=== PATIENT | male | born 1965 | race Caucasian/White ===

== ENCOUNTER 2016-11-25 09:54 | Observation (INO) ==
[2016-11-25] MEDS: *HR* Metoprolol 5 MG/5 ML VIAL IVP SCH ×2 (10:24→10:30)
--- NOTE | 2016-11-25 10:51 | Emergency Department Note ---
Disposition Clinical Impression: Chest pain Qualifiers: Chest pain type: unspecified Qualified Code(s): R07.9 - Chest pain, unspecified Disposition: Admitted As Inpatient Condition: Fair Time of Disposition: 13:14 Chest Pain HPI - General Chief Complaint: ED Chest Pain Stated Complaint: CP, hypertension Time Seen by Provider: 11/25/16 10:04 Source: patient Mode of arrival: ambulatory Limitations: no limitations Vital Signs Reviewed: Yes Nursing Notes Reviewed: Yes - History of Present Illness HPI Narrative: Patient is a 51-year-old male with past medical history of hypertension and hepatitis who presents to [facility] ED with a chief complaint of intermittent chest pains over the last few days. States the first episode was a pressure-like feeling that lasted for a few minutes and went away on its own. Second episode was more sharp stabbing pains. Patient has had a prior catheterization of the heart which was clean at that time in the . No history of myocardial infarction. Patient's blood pressures have also been higher than they normally are during these episodes. Denies any difficulty breathing. Patient is asymptomatic at this time. He is also complaining of weight gain over the last few weeks and states his belly is tender. Pt complaint: chest pain Onset (ago): day(s) Duration: intermittent Pain Location: substernal Severity: moderate Quality: heaviness, sharp Pain Radiation: none Improves with: nothing Worsens with: nothing Context: recent illness Associated symptoms: Reports: cough. Denies: nausea, vomiting, dyspnea, fever Treatments prior to arrival chest pain: none - Related Data Home Medications Medication Instructions Recorded Confirmed Diazepam [Valium] 5 mg PO BID 11/25/15 08/23/16 Lisinopril [Zestril] 10 mg PO DAILY 11/25/15 08/23/16 Previous Rx's Medication Instructions Recorded Hyoscyamine SL [Levsin SL] 0.125 mg SL TID #10 tab.subl 01/24/16 Dicyclomine [Bentyl] 20 mg PO BID PRN #20 capsule 08/23/16 Promethazine [Phenergan] 25 mg PO Q8HR PRN #15 tablet 08/23/16 Allergies Allergy/AdvReac Type Severity Reaction Status Date / Time acetaminophen [From Tylenol] AdvReac See Verified 08/23/16 10:44 Comments All systems ED: reviewed and negative except as stated. Chest Pain PMH - Past Medical History Medical history: Reports: hepatitis, hypertension, liver disease Psychiatric history: Reports: anxiety, depression - Social History Smoking Status: Never smoker Alcohol use: Reports: none Drug use: Reports: none Physical Exam - General Limitations: no limitations General appearance: alert, in no apparent distress - Head Head exam: atraumatic, normocephalic, normal inspection - Eye Eye exam: Present: normal appearance, PERRL, EOMI - ENT ENT exam: normal exam, normal oropharynx, mucous membranes moist - Neck Neck exam: Present: normal inspection, full ROM, trachea midline - Chest Chest inspection: Present: normal inspection, symmetric chest wall rise - Respiratory Respiratory exam: Present: normal lung sounds bilaterally - Cardiovascular Cardiovascular exam: Present: regular rate, normal rhythm, normal heart sounds - Abdominal Exam Abdominal exam: Present: soft, tenderness, distention, normal bowel sounds Abdominal tenderness: Present: diffuse, moderate - Extremities Exam Extremities exam: Present: normal inspection, full ROM. Absent: tenderness, pedal edema - Back Exam Back exam: Present: normal inspection, full ROM. Absent: tenderness - Neurological Exam Neurological exam: Present: alert, oriented X3 - Psychiatric Psychiatric exam: Present: normal affect, normal mood - Skin Skin exam: Present: warm, dry, intact, normal color Course Course Narrative: Patient seen and examined. A few episodes of chest pain. Concern for possible stable angina. No recent cardiac workup. Cardiopulmonary workup initiated. He is also very tender in his abdomen. He is distended and has a history of hepatitis C for which he does not undergo any treatments. We will CT abdomen and pelvis with IV contrast. - Reevaluation(s) Reevaluation #1: Abdominal CT unremarkable. We will admit for chest pain rule out ACS. I spoke with hospitalist Dr. Loya who has accepted patient for admission. Time: 13:14 Vital Signs Temperature 98.2 F 11/25/16 10:00 Pulse Rate 99 11/25/16 10:00 Respiratory Rate 18 11/25/16 10:00 Blood Pressure 180/116 11/25/16 10:00 O2 Sat by Pulse Oximetry 100 11/25/16 10:00 Temperature 98.2 F 11/25/16 10:00 Pulse Rate 78 11/25/16 12:23 Respiratory Rate 18 11/25/16 13:23 Blood Pressure 121/86 11/25/16 13:23 O2 Sat by Pulse Oximetry 98 11/25/16 12:23 Oxygen Delivery Oxygen Delivery Room Air Chest Pain - Medical Records Medical records reviewed: Yes I reviewed the patient's medical records. - Lab Data Lab results reviewed: Yes I reviewed the patient's lab results. Result diagrams: 11/25/16 10:21 11/25/16 10:21 Lab Results 11/25/16 11/25/16 11/25/16 Range/Units 10:21 10:21 10:21 WBC 4.8 (4.3-11.1) K/mcL RBC 4.46 (4.19-5.50) M/mcL Hgb 13.9 (12.9-16.9) g/dL Hct 41.1 (37.5-50.1) % MCV 92.2 (83.0-100.0) fL MCH 31.2 (28.0-33.3) pg MCHC 33.8 (31.6-35.5) g/dL RDW 13.3 (11.5-14.5) % Plt Count 229 (140-400) K/mcL MPV 10.1 (9.4-12.4) fL Immature Gran % 0.4 (0-4) % Seg Neutrophils % 46.3 % Lymphocytes % 41.3 % Monocytes % 8.2 % Eosinophils % 3.6 % Basophils % 0.2 % Neutrophils # 2.2 (1.6-8.9) K/mcL Lymphocytes # 2.0 (0.6-4.6) K/mcL Monocytes # 0.4 (0.0-1.3) K/mcL Eosinophils # 0.2 (0.0-0.6) K/mcL Basophils # 0.0 (0.0-0.2) K/mcL Immature Plt Fraction 3.6 (1.1-6.1) % Sodium 142 (136-145) mEq/L Potassium 3.5 (3.5-4.5) mEq/L Chloride 110 H (98-109) mEq/L Carbon Dioxide 24 (19-29) mEq/L BUN 3 L (8-26) mg/dL Creatinine 0.83 (0.72-1.25) mg/dL Est GFR ( Amer) > 60 (> 60) Est GFR (Non-Af Amer) > 60 (> 60) BUN/Creatinine Ratio 4 L (6-26) Glucose 154 H (70-99) mg/dL Calculated Osmolality 294 (280-300) Calcium 9.3 (8.6-10.8) mg/dL Total Bilirubin (0.2-1.2) mg/dL Direct Bilirubin (0.0-0.5) mg/dL Indirect Bilirubin (0.0-1.2) mg/dL AST (5-34) Units/L ALT (0-55) Units/L Alkaline Phosphatase (38-126) Units/L Troponin I 0.00 (0-0.03) ng/mL B-Natriuretic Peptide (0-100) pg/mL Serum Total Protein (6.0-8.3) g/dL Albumin (3.5-5.0) g/dL Globulin (2.4-3.5) g/dL Albumin/Globulin Ratio (1.1-2.2) 11/25/16 11/25/16 Range/Units 10:21 10:21 WBC (4.3-11.1) K/mcL RBC (4.19-5.50) M/mcL Hgb (12.9-16.9) g/dL Hct (37.5-50.1) % MCV (83.0-100.0) fL MCH (28.0-33.3) pg MCHC (31.6-35.5) g/dL RDW (11.5-14.5) % Plt Count (140-400) K/mcL MPV (9.4-12.4) fL Immature Gran % (0-4) % Seg Neutrophils % % Lymphocytes % % Monocytes % % Eosinophils % % Basophils % % Neutrophils # (1.6-8.9) K/mcL Lymphocytes # (0.6-4.6) K/mcL Monocytes # (0.0-1.3) K/mcL Eosinophils # (0.0-0.6) K/mcL Basophils # (0.0-0.2) K/mcL Immature Plt Fraction (1.1-6.1) % Sodium (136-145) mEq/L Potassium (3.5-4.5) mEq/L Chloride (98-109) mEq/L Carbon Dioxide (19-29) mEq/L BUN (8-26) mg/dL Creatinine (0.72-1.25) mg/dL Est GFR ( Amer) (> 60) Est GFR (Non-Af Amer) (> 60) BUN/Creatinine Ratio (6-26) Glucose (70-99) mg/dL Calculated Osmolality (280-300) Calcium (8.6-10.8) mg/dL Total Bilirubin 0.4 (0.2-1.2) mg/dL Direct Bilirubin 0.2 (0.0-0.5) mg/dL Indirect Bilirubin 0.2 (0.0-1.2) mg/dL AST 28 (5-34) Units/L ALT 29 (0-55) Units/L Alkaline Phosphatase 88 (38-126) Units/L Troponin I (0-0.03) ng/mL B-Natriuretic Peptide 17 (0-100) pg/mL Serum Total Protein 7.8 (6.0-8.3) g/dL Albumin 3.7 (3.5-5.0) g/dL Globulin 4.1 H (2.4-3.5) g/dL Albumin/Globulin Ratio 0.9 L (1.1-2.2) - Radiology Data Radiology results reviewed: Yes I reviewed the patient's radiology results. - EKG Data EKG attestation: Yes I reviewed and interpreted this EKG. EKG results narrative: EKG done at an all 7 shows normal sinus rhythm with a rate of [address] elevation or depression. Left axis deviation. Heart Score - Score History: Moderately Suspicious EKG: Non Specific repolarisation Disturbance Age: 45-65 Risk Factors: 1-2 risk factors Troponin: Less than normal limit HEART Score Total: 4 Attestation Statement - Attestation Attestation: Patient was seen with resident physician. I reviewed the history, physical, assessment and plan, and agree with the findings. I also personally evaluated this patient and had [id number] time with this patient. 51-year-old male who presents to the emergency department with chief complaint of hypertension and chest pain. Patient was originally seen at urgent care was transferred to the emergency department for more definitive management. He said his blood pressures got up for the last couple days which is resulted in having chest pain. He says he has had 2 episodes 12 days ago which was a pressure sensation that radiated to his left shoulder and left arm. This episode lasted 5 minutes additionally patient had one yesterday that was sharper in nature also the left side and with the same radiation. She notes that he thinks something is wrong with his liver as he is gained approximately 50 pounds in the last 2 years or so. He does not have that looked into recently but he does have diffuse abdominal tenderness. He denies nausea vomiting or diarrhea. On examination heart and lungs are normal. ENT normal. Abdomen positive bowel sounds distended diffusely tender with no guarding or rigidity. Extremities unremarkable. Patient was given Lopressor to reduce his initial blood pressure as well as his heart rate. He received aspirin at the urgent care prior to his arrival. EKG showed no acute changes. We will workup for cardiac ischemia and also for liver dysfunction. Initial workup was unremarkable, but with the patient's symptoms and history, he will require additional workup as an inpatient. Hospitalist service was notified of admission. Agree with resident physician assessment and plan.
[2016-11-25] MEDS ORDERED: *HR* HYDROmorphone (PF) 1 MG/ML SYRINGE IVP ONE (10:54)
[2016-11-25] MEDS ORDERED: Ondansetron 4 MG/2 ML VIAL IVP ONE (10:54)
[2016-11-25 11:01] LABS: Basophils % 0.2 %; Eosinophils # 0.2 K/mcL (0.0-0.6); Eosinophils % 3.6 %; Hematocrit 41.1 % (37.5-50.1); Hemoglobin 13.9 g/dL (12.9-16.9); Immature Granulocytes % 0.4 % (0-4); Immature Platelets 3.6 % (1.1-6.1); Lymphocytes % 41.3 %; Mean Corpuscular HGB Conc 33.8 g/dL (31.6-35.5); Mean Corpuscular Hemoglobin 31.2 pg (28.0-33.3); Mean Corpuscular Volume 92.2 fL (83.0-100.0); Mean Platelet Volume 10.1 fL (9.4-12.4); Monocytes # 0.4 K/mcL (0.0-1.3); Monocytes % 8.2 %; Neutrophils # 2.2 K/mcL (1.6-8.9); Platelet Count 229 K/mcL (140-400); Red Blood Count 4.46 M/mcL (4.19-5.50); Red Cell Distribution Width 13.3 % (11.5-14.5); Segmented Neutrophils % 46.3 %
[2016-11-25 11:12] LABS: BUN/Creatinine Ratio 4 (6-26); Blood Urea Nitrogen 3 mg/dL (8-26); Calcium 9.3 mg/dL (8.6-10.8); Carbon Dioxide 24 mEq/L (19-29); Chloride 110 mEq/L (98-109); Glucose 154 mg/dL (70-99); Osmolality,Calculated 294 (280-300); Potassium 3.5 mEq/L (3.5-4.5); Sodium 142 mEq/L (136-145); eGFR For African Americans > 60 (> 60); eGFR For Non-African Americans > 60 (> 60)
[2016-11-25 11:14] LABS: Albumin 3.7 g/dL (3.5-5.0); Albumin/Globulin Ratio 0.9 (1.1-2.2); Bilirubin,Direct 0.2 mg/dL (0.0-0.5); Bilirubin,Indirect 0.2 mg/dL (0.0-1.2); Bilirubin,Total 0.4 mg/dL (0.2-1.2); Globulin 4.1 g/dL (2.4-3.5); Total Protein 7.8 g/dL (6.0-8.3)
[2016-11-25] MEDS ORDERED: *HR* HYDROcodone/Acet 5/325 mg TABLET PO PRN (13:36)
[2016-11-25] MEDS ORDERED: Naloxone 0.4 MG/ML INJ IVP PRN (13:36)
[2016-11-25] MEDS ORDERED: Ibuprofen 400 MG TABLET PO PRN (13:36)
--- NOTE | 2016-11-25 13:41 | Internal Med History&Physical ---
Date of Encounter: 11/25/16 Time of Encounter: 13:41 Assessment and Plan (1) Hypertensive urgency Current visit: Yes Status: Acute No headaches, palpitations or any other symptoms/signs to suggest pheochromytomas. Abd CT unremarkable for hepatic/adrenal/renal abnormalities Restart home meds, titrate meds to goal BP Add B-blockers Check Utox Monitor closely (2) Chest pain Current visit: Yes Status: Acute Chest pain is likely as a result o demand from uncontrolled BP Patient with strong family history of heart disease EKG non-ischemic CXR is unremarkable for any acute processes Abd CT unremarkable except for GE reflux and BPH for which patient has no symptoms Check Utox initial trop negative Trend trops ASA, BB, Statin in the meantime Cardiology prn , not indicated for now Qualifiers: Chest pain type: unspecified Qualified Code(s): R07.9 - Chest pain, unspecified Internal Medicine - H&P: HPI Chief complaint: "Blood pressure running high" Admitted From: Home Plans for Post Hospital Care: Home History of present illness: Mr. Brown is a 51 year old male with PMH of Alcoholic liver disease( compensated per history) and HTN with poorly controlled BP Presents to ER with complains of uncontrolled BP for the past one week. He had presented to his PCP who added "a water pill" to his medication. He states he developed chest pain two nights ago which was mild, about 4/10, substernal and non-radiating and self resolved. Last night, he developed chest pain again, substernal, non-radiating, about 9/10 with no nausea/vomiting, shortness of breath, diaphoresis or dizziness. There were no known aggravating or relieving factors Patient reports compliance with home medications(names unknown) and denies illicit drug use. He reports one episode of diarrhea yesterday, but has had none today. He is chest pain free at time of review He reports being on medications for anxiety or depression, at time of review, he had no anxiety /panic attacks or suicidal ideations recently or at time of review. Past Med Surg Social Fam HX - Past Medical History Medical history: hypertension, liver disease Psychiatric history: anxiety, depression - Social History Smoking Status: Never smoker Smokeless Tobacco Status: No Alcohol use: none Drug use: none Internal Medicine - H&P: Meds Diazepam [Valium] 5 mg PO BID 11/25/15 [History] RX: Lisinopril [Zestril] 10 mg PO DAILY 11/25/15 [History] Hyoscyamine SL [Levsin SL] 0.125 mg SL TID #10 tab.subl 01/24/16 [Rx] Dicyclomine [Bentyl] 20 mg PO BID PRN #20 capsule 08/23/16 [Rx] Promethazine [Phenergan] 25 mg PO Q8HR PRN #15 tablet 08/23/16 [Rx] Allergies acetaminophen [From Tylenol] Adverse Reaction (Verified 08/23/16 10:44) See Comments liver disease/hepatitis All Systems PM: A 10-system review of systems was performed and is negative for pertinent findings except as documented above in the HPI. - Constitutional Constitutional: no chills, no fever(s), no night sweats - EENT Eyes: no change in vision, no discharge, no pain, no photophobia Ears: no ear discharge, no ear pain, no tinnitus Nose, mouth and throat: no dysphagia, no nasal discharge, no neck pain, no sore throat - Cardiovascular Cardiovascular ROS IM: as per HPI - Respiratory Respiratory: as per HPI - Gastrointestinal Gastrointestinal: as per HPI - Genitourinary Genitourinary ROS male: as per HPI - Musculoskeletal Musculoskeletal ROS IM: no numbness, no tingling - Integumentary Integumentary IM: no rash, no unusual bruising - Neurological Neurological ROS: no confusion, no convulsions, no focal weakness, no numbness, no tingling, no tremor(s) - Psychiatric Psychiatric: no anxiety, no depression - Hematologic/Lymphatic Hematologic/Lymphatic: no easy bruising - Constitutional Vitals: Temp Pulse Resp BP Pulse Ox 98.2 F 78 18 121/86 98 11/25/16 10:00 11/25/16 12:23 11/25/16 13:23 11/25/16 13:23 11/25/16 12:23 BP at time of presentation 180/116, BP at time of reviee after 2 pushes of Lopressor 5mg [id number], SPO2-100% on room air, HR-66 Gen: not in distress, speaks full sentences. Neuro: AAOX3, moves all limbs spontaneously, seems mentally slow HEENT: Sclera is anicteric, Moist oral mucosa, no cyanosis Chest: NO chest wall tenderness, chest is clear to auscultation bilaterally, no rales, rhonchi, wheezes Heart: S1, S2 only, no m/g/r Abdomen: Soft, not tender, no palpably enlarged organs, BS present in all quadrants Extremities: No edema bilaterally. General appearance: Present: A&O X 3, no acute distress Internal Med - H&P Results - Labs CBC & Chem 7: 11/25/16 10:21 11/25/16 10:21 - EKG Data EKG shows normal: sinus rhythm (NSR), ST-T waves (NO ST segment elevation or depression) Rate: normal - EKG Data Prior EKG available for review: yes When compared to previous EKG: there is no significant change Interpretation IM: normal EKG
[2016-11-25] MEDS ORDERED: Lisinopril 20 MG TABLET PO ONE (14:30)
[2016-11-25 15:09] LABS: Amphetamine Screen,Urine Negative ng/mL (Cutoff=1000); Barbiturate Screen,Urine Negative ng/mL (Cutoff=200); Benzodiazepines Screen,Urine Positive ng/mL (Cutoff=200); Cannabinoid Screen,Urine Negative ng/mL (Cutoff = 50); Cocaine Screen,Urine Negative ng/mL (Cutoff= 300); Opiate Screen,Urine Negative ng/mL (Cutoff=300); Phencyclidine Screen,Urine Negative ng/mL (Cutoff=25)
[2016-11-25] MEDS: *HR* Morphine 2 MG/ML SYRINGE IVP PRN ×2 (15:32→19:37)
[2016-11-25] MEDS: diazePAM 5 MG TABLET PO SCH (20:38)
[2016-11-25] MEDS: Gabapentin 100 MG CAPSULE PO SCH (20:38)
[2016-11-26] MEDS: *HR* Morphine 2 MG/ML SYRINGE IVP PRN ×3 (03:05→14:55)
[2016-11-26 05:05] LABS: Hematocrit 42.9 % (37.5-50.1); Mean Corpuscular HGB Conc 32.6 g/dL (31.6-35.5); Mean Corpuscular Hemoglobin 30.5 pg (28.0-33.3); Mean Corpuscular Volume 93.5 fL (83.0-100.0); Mean Platelet Volume 10.2 fL (9.4-12.4); Platelet Count 235 K/mcL (140-400); Red Blood Count 4.59 M/mcL (4.19-5.50); Red Cell Distribution Width 13.7 % (11.5-14.5)
[2016-11-26 05:11] LABS: Hemoglobin A1C 5.4 %
[2016-11-26 05:15] LABS: BUN/Creatinine Ratio 5 (6-26); Carbon Dioxide 26 mEq/L (19-29); Chloride 108 mEq/L (98-109); Chol/HDL Ratio 6.8 (0-4.9); Cholesterol 143 mg/dL (< 200); Glucose 124 mg/dL (70-99); HDL Cholesterol 21 mg/dL (40-59); LDL Cholesterol,Calculated 94 mg/dL (0-99); Osmolality,Calculated 293 (280-300); Potassium 4.1 mEq/L (3.5-4.5); Sodium 142 mEq/L (136-145); Triglycerides 142 mg/dL (< 150); eGFR For African Americans > 60 (> 60); eGFR For Non-African Americans > 60 (> 60)
[2016-11-26 05:20] LABS: Blood Urea Nitrogen 5 mg/dL (8-26)
[2016-11-26] MEDS: diazePAM 5 MG TABLET PO SCH (08:31)
[2016-11-26] MEDS: Gabapentin 100 MG CAPSULE PO SCH ×2 (08:32→14:55)
[2016-11-26] MEDS ORDERED: Aspirin Enteric Coated 81 MG Tablet PO SCH (09:00)
[2016-11-26] MEDS: *HR* OxyCODONE Immed Rel 5 MG TABLET PO PRN ×2 (09:15→16:18)
[2016-11-26] MEDS: *HR* Metoprolol 5 MG/5 ML VIAL IVP SCH (11:45)
--- NOTE | 2016-11-26 13:51 | Electrocardiograph Report ---
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
--- NOTE | 2016-11-26 14:19 | Discharge Summary ---
Date of Encounter: 11/26/16 Time of Encounter: 10:30 - Discharge Diagnosis (1) Hypertensive urgency Priority: Primary Status: Resolved Comments: Normotensive on time of discharge. At home, patient was on lisinopril 10 mg with HCTZ, the HCTZ was stopped and the lisinopril was increased to 20 mg and metoprolol 25 mg twice a day was added. Follow-up outpatient. (2) Chest pain Priority: Primary Status: Resolved Comments: Patient denied chest pain or shortness of breath throughout this admission. Qualifiers: Chest pain type: unspecified Qualified Code(s): R07.9 - Chest pain, unspecified (3) Dysuria Priority: Primary Status: Ruled-out Comments: Patient stating he has had dysuria for the past 6-7 months, prior to discharge, urinalysis was obtained prior to discharge which was normal. (4) Alcoholic liver disease Priority: Secondary Status: Chronic Comments: LFTs normal. Patient endorsing generalized abdominal pain consistent with his norm. Patient stating his abdomen is currently less distended than it usually is. Follow-up outpatient. - Discharge Medications Prescriptions: Lisinopril [Zestril] 20 mg PO DAILY #30 tablet Metoprolol [Lopressor] 25 mg PO BID #60 tablet Home Medications: Diazepam [Valium] 5 mg PO BID 11/25/15 [History] Aripiprazole 5 mg PO DAILY 11/26/16 [History] FLUoxetine HCl [Prozac] 20 mg PO DAILY 11/26/16 [History] Gabapentin [Neurontin] 300 mg PO TID 11/26/16 [History] Lisinopril [Zestril] 20 mg PO DAILY #30 tablet 11/26/16 [Rx] Metoprolol [Lopressor] 25 mg PO BID #60 tablet 11/26/16 [Rx] Omeprazole [PriLOSEC] 20 mg PO DAILY 11/26/16 [History] OxyCODONE Immed Rel [Roxicodone 5 MG] 5 mg PO Q6H PRN 11/26/16 [History] Allergies/Adverse Reactions: Allergies acetaminophen [From Tylenol] Adverse Reaction (Verified 11/26/16 08:19) See Comments liver disease/hepatitis Date of admission: 11/25/16 13:15 Primary care physician: PCP NO Discharging clinician: Shara Bonner Anticipated date of discharge: 11/26/16 - Patient Status Disposition: Home, Self-Care Condition: Fair Functional capacity at discharge: independent ambulation Overall status at discharge: patient is back to baseline - Discharge Instructions Follow Up With: Vesta Mayorga CNP [Advanced Practice Nurse] - Additional Instructions: Follow-up with primary care provider in 1-2 weeks. Check blood pressure daily, and keep a log - Diet and Activity Activity: increase activity as tolerated Diet: low fat, low cholesterol, low salt diet Hospital course: Mr. Brown is a 51 year old male with past medical history of alcoholic liver disease, poorly controlled hypertension. Patient presented to the emergency room chief complaint uncontrolled blood pressure 1 week. He went to his primary care provider who added HCTZ onto his lisinopril but he remained hypertensive. 2 nights prior to presentation, he developed chest pain which was mild, substernally located did not radiate and resolved on its own. On the night prior to presentation he again developed chest pain that was again substernally located did not radiate but this time more severe but was also again self-limiting. Patient denied nausea, vomiting, shortness of breath, diaphoresis or dizziness. Initial blood pressure in the emergency department 180/116. Patient was admitted to the hospitalist service for further evaluation and management. His HCTZ was held and his lisinopril dosage was increased to 20 mg daily he was also started on metoprolol 25 mg twice a day. He was seen and observed over the course of 2 days and remained normotensive on day of discharge. Chest x-ray negative. Abdominal CT negative for acute processes other than enlarged prostate. Patient did complain of dysuria for the past 6-7 months prior to his discharge, a urinalysis was checked which was normal. Troponins were negative 3. Flu swab was negative. He was able to tolerate a regular diet well admitted and denied chest pain or shortness of breath throughout his admission. He was discharged home in stable condition with close outpatient follow-up recommended with his primary care provider. He was instructed to check his blood pressure daily and keep a log for his primary care provider to review. Of note, patient requesting pain medication upon discharge. According to his [facility] report, his PCP worte him for a 30 day supply of Oxycodone 5mg on 11/08/16. He was also recently started on gabapentin on and given a 90 day supply. No pain medication written at discharge. ITS Impressions Chest X-Ray 11/25/16 10:07 IMPRESSION: No acute cardiopulmonary abnormality. D/ / Chris Duncan MD / Chris Duncan MD Interpreting Provider: Chris Duncan MD Abdomen/Pelvis CT 11/25/16 11:04 IMPRESSION: Suspected small hiatal hernia with evidence of gastroesophageal reflux. Prostate gland enlargement and diffuse wall thickening the urinary bladder. Correlation for chronic outlet obstruction is recommended D/ / Radha Edmondson Cha, MD / Radha Edmondson Cha, MD Interpreting Provider: Radha Edmonsdon Cha, MD - Time Spent with Patient Total time spent providing and/or coordinating discharge services: - Constitutional Vitals: Temp Pulse Resp BP Pulse Ox 98.3 F 64 16 108/68 96 11/26/16 11:18 11/26/16 11:18 11/26/16 11:18 11/26/16 11:18 11/26/16 11:18 General appearance: Present: A&O X 3, pleasant, no acute distress, answers questions appropriately - Head Head exam: Present: atraumatic, normocephalic - Eye Eye exam: Present: PERRL, conjuntiva pink, sclera anicteric Pupils: Present: PERRL - Neck Neck exam general surgery: Present: supple, trachea midline. Absent: lymphadenopathy - Respiratory Respiratory exam: Present: CTAB. Absent: accessory muscle use, rales, respiratory distress, rhonchi, wheezes - Cardiovascular Cardiovascular exam: Present: RRR, +S1, +S2. Absent: diastolic murmur, gallop, rubs, systolic murmur - GI/Abdominal GI/Abdominal exam: Present: distended, normal bowel sounds, soft, tenderness ( diffuse, chronic), no peritoneal signs - Extremities Exam Extremities exam: Present: warm, radial pulses palpable and symetrical. Absent : calf tenderness, cyanotic, pedal edema - Neurological Exam Neurological exam: Present: alert, CN II-XII intact, normal gait, oriented X3, no focal deficits, strengths equal and symetr throughout. Absent: pronater drift, facial droop, speech deficit - Skin Skin exam: Present: dry, intact, normal color, warm
[2016-11-26 15:18] VITALS: BP 124/77
[2016-11-26 15:21] LABS: Bilirubin,Urine Negative (Negative); Blood,Urine Negative (Negative); Clarity,Urine Clear (Clear); Color,Urine Yellow (Yellow); Glucose,Urine (UA) Normal (Normal); Ketones,Urine Negative (Negative); Leukocyte Esterase,Urine Negative (Negative); Nitrite,Urine Negative (Negative); Protein,Urine Negative (Neg-Trace); Specific Gravity,Urine 1.021 (1.010-1.025); Urobilinogen,Urine Normal (Normal)
== END 2016-11-26 16:35 | disposition home or self-care (01) ==
LOC: EMEROO 09:54 → 3BNU 09:54 → SUATTDRO 13:15 → 3BNU 13:32
PROVIDERS: ADMIT Internal Medicine; ATTEND Nurse Practitioner Family

== ENCOUNTER 2016-12-12 20:25 | Inpatient (IN) ==
[2016-12-13] MEDS ORDERED: Ondansetron 4 MG/2 ML VIAL IVP PRN (03:02)
[2016-12-13] MEDS ORDERED: Ibuprofen 400 MG TABLET PO PRN (03:02)
[2016-12-13] MEDS ORDERED: Naloxone 0.4 MG/ML INJ IVP PRN (03:02)
[2016-12-13] MEDS ORDERED: Mag Hydrox/Al Hydrox/Simeth 30 ML UDC PO PRN (03:02)
--- NOTE | 2016-12-13 04:16 | Internal Med History&Physical ---
Date of Encounter: 12/13/16 Time of Encounter: 02:00 Assessment and Plan (1) SIRS (systemic inflammatory response syndrome) Current visit: Yes Status: Acute patient has HR>100, respirations >20, initial temp 100.4 no elevated white count currently VBG lactate normal. Currently, patient does not meet sepsis criteria If patient deteriorates and becomes septic, consider SBP as a potential cause Ceftriaxone 1 g IV daily. This will cover SBP as well if present. blood cultures x2 pending urinalysis with culture if indicated. (2) Alcoholic liver disease Current visit: No Status: Chronic Patient has a history of alcohol abuse for 22 years. He drank anywhere from 6pack to one case of beer a day. He quit drinking about one year ago. Patient has abdominal distention from chronic alcoholic liver disease. likely ascites- consider paracentesis with culture to look for SBP. pain control with tramadol and morphine prn. (3) Abdominal pain Current visit: No Status: Chronic patient has chronic abdominal pain and distention from his alcoholic liver disease. Plan as above. Qualifiers: Abdominal location: unspecified location Qualified Code(s): R10.9 - Unspecified abdominal pain (4) BPH (benign prostatic hyperplasia) Current visit: Yes Status: Chronic chronic problem. continue to monitor. Qualifiers: Prostatic enlargement morphology: unspecified morphology Lower urinary tract symptom presence: presence of symptoms unspecified Qualified Code(s): N40.0 - Benign prostatic hyperplasia without lower urinary tract symptoms (5) GERD (gastroesophageal reflux disease) Current visit: Yes Status: Acute protonix for GI prophylaxis. Qualifiers: Esophagitis presence: esophagitis presence not specified Qualified Code(s) : K21.9 - Gastro-esophageal reflux disease without esophagitis (6) DVT prophylaxis Current visit: Yes Status: Acute Heparin SQ Q8HR Internal Medicine - H&P: HPI Chief complaint: feels ill Admitted From: Hospital to Hospital Transfer Plans for Post Hospital Care: Home History of present illness: Mr. Brown is a 51 year old male with PMHx of BPH, HTN, HLD, alcoholic liver disease. He presented as a transfer from the [place] ED. Patient is a poor historian. He is slurring his speech, and takes a long time to respond to questions. He frequently appears as if he cannot find the right words to get his point across. Earlier this evening, he stated that he was not feeling well. He had fever without chills. Recent sick contacts include his mother (who was recently in the ICU for pneumonia) and his sister. Patient states that earlier this evening, he felt extremely ill. He was dizzy, couldn't walk straight, had nausea without vomiting. He had a wet cough, but was unable to actually cough up anything. He denies vomiting, hemoptysis, chest pain, blood in stool/urine. He layed down to take a nap, and his parents could not wake him up from his sleep, so they called the squad and he was taken to the [place] ED. Social Hx: not a current smoker and no history of smoking. He was an alcoholic for 22 years. On average would drink a six pack to one case of beer daily. He has not had a drink in one year. He denies illicit drug use. He lives at home with his mother and stepdad. He does not work, is on social security. Family Hx: mother: alive, has diabetes, has a history of [place]. Father at 75 from liver failure, was an alcoholic. Past Med Surg Social Fam HX - Past Medical History Medical history: GERD, hepatitis, hypertension, kidney stones, liver disease Psychiatric history: anxiety, depression - Social History Smoking Status: Never smoker Smokeless Tobacco Status: No Alcohol use: none Drug use: none - Family History Father Hx Family Cardiac Disorders: Yes Hx Family Endocrine Disorder: Yes Mother Hx Family Cardiac Disorders: Yes Hx Family Endocrine Disorder: Yes Internal Medicine - H&P: Meds Diazepam [Valium] 5 mg PO BID 11/25/15 [History] Aripiprazole 5 mg PO DAILY 11/26/16 [History] FLUoxetine HCl [Prozac] 20 mg PO DAILY 11/26/16 [History] Gabapentin [Neurontin] 300 mg PO TID 11/26/16 [History] Omeprazole [PriLOSEC] 20 mg PO DAILY 11/26/16 [History] OxyCODONE Immed Rel [Roxicodone 5 MG] 5 mg PO Q6H PRN 11/26/16 [History] Lisinopril-HCTZ 20-12.5 [Prinzide 20-12.5] 1 each PO DAILY 12/12/16 [History] Allergies acetaminophen [From Tylenol] Adverse Reaction (Verified 01/25/17 16:21) See Comments liver disease/hepatitis All Systems PM: A 10-system review of systems was performed and is negative for pertinent findings except as documented above in the HPI. - Constitutional Constitutional: fever(s), weakness, no anorexia, no chills, no falls - EENT Eyes: no change in vision - Cardiovascular Cardiovascular ROS IM: no chest pain, no syncope - Respiratory Respiratory: cough, no hemoptysis, no dyspnea on exertion - Gastrointestinal Gastrointestinal: abdominal pain, no hematochezia, no melena - Genitourinary Genitourinary ROS male: post void dribbling, no hematuria - Constitutional Vitals: Temp Pulse Resp BP Pulse Ox 98.6 F 111 18 110/67 93 L 12/12/16 22:39 12/12/16 22:39 12/12/16 22:39 12/12/16 22:39 12/12/16 23:50 General appearance: Present: disheveled, mild distress, A&O X 3 - Head Head exam: Present: atraumatic, normocephalic - Eye Eye exam: Present: sclera anicteric - Neck Neck exam general surgery: Present: supple, trachea midline - Respiratory Respiratory exam: Present: rales, rhonchi, wheezes Additional comments: decreased breath sounds on right upper lobe - Cardiovascular Cardiovascular exam: Present: +S1, +S2, tachycardia - GI/Abdominal GI/Abdominal exam: Present: distended, normal bowel sounds, tenderness Additional comments: abdomen distended with significant upper abdominal pain with palpation. - Extremities Exam Extremities exam: Absent: cyanotic, pedal edema - Neurological Exam Neurological exam: Present: alert, oriented X3, speech deficit - Psychiatric Psychiatric exam: Present: anxious - Skin Additional comments: tattoos present on left arm and chest.
[2016-12-13] MEDS ORDERED: traMADol 50 MG TABLET PO PRN (04:36)
[2016-12-13] MEDS ORDERED: *HR* Morphine 2 MG/ML SYRINGE IVP PRN ×3 (04:44→18:30)
[2016-12-13 05:24] LABS: Hematocrit 35.6 % (37.5-50.1); Hemoglobin 11.7 g/dL (12.9-16.9); Mean Corpuscular HGB Conc 32.9 g/dL (31.6-35.5); Mean Corpuscular Hemoglobin 31.3 pg (28.0-33.3); Mean Corpuscular Volume 95.2 fL (83.0-100.0); Mean Platelet Volume 10.6 fL (9.4-12.4); Monocytes # 0.5 K/mcL (0.0-1.3); Platelet Count 157 K/mcL (140-400); Red Blood Count 3.74 M/mcL (4.19-5.50); Red Cell Distribution Width 13.9 % (11.5-14.5)
[2016-12-13 05:37] LABS: Calcium 7.5 mg/dL (8.6-10.8); Magnesium 1.5 mg/dL (1.6-2.6); Phosphorous 3.5 mg/dL (2.3-4.7); Potassium 3.8 mEq/L (3.5-4.5)
[2016-12-13 05:58] LABS: Lymphocytes # 1.2 K/mcL (0.6-4.6); Platelet Estimate Normal (Normal)
[2016-12-13 05:59] LABS: Basophilic Stippling 1+ (Not Present); Dohle Bodies Present (Not Present); Polychromasia 1+ (Not Present)
[2016-12-13] MEDS: *HR* OxyCODONE Immed Rel 5 MG TABLET PO PRN ×3 (06:47→20:02)
[2016-12-13] MEDS ORDERED: *HR* Heparin 5,000 UNIT/ML VIAL SQ SCH (07:00)
[2016-12-13] MEDS ORDERED: Cefotaxime 2,000 MG in D5% in Water 100 ML IVPB SCH (07:33)
[2016-12-13] MEDS ORDERED: Albumin 25% 25gram/100mL 25 GM/100 ML IV.SOLN IVC SCH (08:45)
[2016-12-13] MEDS: Pantoprazole 40 MG VIAL IVP SCH (09:04)
[2016-12-13] MEDS: Cefotaxime 2,000 MG in D5% in Water 100 ML IVPB SCH ×2 (09:06→15:21)
[2016-12-13] MEDS ORDERED: *HR* HYDROmorphone (PF) 1 MG/ML SYRINGE IVP PRN (10:17)
[2016-12-13] MEDS: *HR* Morphine 2 MG/ML SYRINGE IVP PRN ×2 (11:30→13:45)
--- NOTE | 2016-12-13 11:37 | Internal Med Progress Note ---
<Marvin Wade - Last Filed: 12/13/16 18:36> Date of Encounter: 12/13/16 Time of Encounter: 08:00 - Time Spent With Patient Greater than 35 minutes - Subjective Interval history: 51M c/c abdominal pain. Abdominal pain present for years, however over the last 4 months he has had progression in his pain. Pain described as sharp and stabbing with a dull ache. Worse with eating and nothing seems to make it better. He has received multiple CT abdominal exams without explanation or source of his pain. Today, he feels he is doing worse compared to yesterday. Abdominal pain is mainly LLQ, sharp and stabbing. He does have an underlying diffused abdominal pain that is constant dull ache. He denies any F/Cough/N/V/D/changes to his bowel and bladder. He is hungry and would like to eat. Able to ambulate to the bathroom, but painful to do so. Family present in room. Greater >2h spend with him and the family. Assessment/Plan 1.Abdominal pain -Patient presents with peritoneal signs. Elevated Bands. VBG, Lipase, AST/ALT WNL -Multiple CT scans in past. CT ab/pl today is negative for SBP, Perf, Diverticulitis -Evaluated by Surgeon at bedside. No surgical abdomen and no concern for Mesenteric ischemia-patient is hungry and can ambulate, has gained weight over the last several months. -Continue pain medicine and abx and fluids. May advance diet as tolerated. Will continue heparin-patient in JOSEFA, dont use lovenox. 2.JOSEFA -Unknown cause. Patient not complaining of flank pain. Does complain of problems with urinary stream Protectomy. -CT negative for stones. Urine sent down. -Patient JOSEFA improved compared to yesterday. Continue fluids. No need for nephrology or urology at this time. 3.SOB, Possible Heart friction rub -Patient having increase work of breathing, tachy, red around the neck, JVD bilaterally and possible friction rub/murmur. -Concern for constrictive pericarditis, pericardiac effusion, endocarditis. -ECHO unremarkable. Will get CT non contrast of chest due to JOSEFA - Constitutional Vitals: Temp Pulse Resp BP Pulse Ox 97.9 F 97 18 100/72 97 12/13/16 05:02 12/13/16 05:02 12/13/16 05:02 12/13/16 05:02 12/13/16 05:02 General appearance: Present: disheveled, mild distress, A&O X 3 - Head Head exam: Present: atraumatic, normocephalic - Eye Eye exam: Present: PERRL, conjuntiva pink, sclera anicteric Pupils: Present: PERRL - Neck Additional comments: increase redness. JVD bilaterally. - Respiratory Respiratory exam: Present: CTAB - Cardiovascular Cardiovascular exam: Present: RRR (possible friction rub or murmur ) Additional comments: murmur or friction rub over tricuspid. - GI/Abdominal GI/Abdominal exam: Present: hyperactive bowel sounds, tenderness. Absent: rigid , soft, no peritoneal signs - Neurological Exam Neurological exam: Present: oriented X3, no focal deficits. Absent: facial droop, speech deficit - Psychiatric Psychiatric exam: Present: anxious Internal Medicine: Result - Labs CBC & Chem 7: 12/13/16 05:11 12/13/16 05:11 Labs: Short CBC 12/13/16 Range/Units 05:11 WBC 8.7 D (4.3-11.1) K/mcL Hgb 11.7 L D (12.9-16.9) g/dL Hct 35.6 L (37.5-50.1) % Plt Count 157 (140-400) K/mcL Neutrophils # 7.0 (1.6-8.9) K/mcL BMP 12/13/16 05:11 Sodium 140 Potassium 3.8 Chloride 108 Carbon Dioxide 22 BUN 22 Creatinine 1.83 H Glucose 139 H Calcium 7.5 L - Impressions Impressions Abdomen/Pelvis CT 12/13/16 11:40 IMPRESSION: Patchy airspace disease at the lung bases suspicious for developing pneumonia. Diverticulosis. No diverticulitis Small hiatal hernia with thickening at the GE junction D/ / Mark Cline MD / Mark Cline MD Interpreting Provider: Mark Cline MD Consult Discharge Plan - Plan Instructions: Chest Pain (DC), Diverticulitis (DC), Cirrhosis (DC), Cirrhosis ( GEN), Abuse of Alcohol (DC), Abuse of Alcohol (GEN), Chronic Hypertension (DC), Ascites (DC), Ascites (GEN), Viral Hepatitis C, Civil Drafter (GEN) Additional Instructions: If you begin to have bloody bowel movements, intractable N/V, fevers. Please, be evaluated in the ED. Referrals: NO,PCP [Primary Care Provider] - Prescriptions: Docusate [Colace] 100 mg PO BID #60 capsule <Sharath Lugo - Last Filed: 12/14/16 14:29> Date of Encounter: 12/13/16 - Constitutional Vitals: Temp Pulse Resp BP Pulse Ox 97.8 F 100 16 132/79 97 12/14/16 11:58 12/14/16 11:58 12/14/16 11:58 12/14/16 11:58 12/14/16 10:59 Internal Medicine: Result - Labs CBC & Chem 7: 12/14/16 03:28 12/14/16 03:28 Labs: Short CBC 12/14/16 Range/Units 03:28 WBC 6.1 (4.3-11.1) K/mcL Hgb 12.3 L (12.9-16.9) g/dL Hct 37.4 L (37.5-50.1) % Plt Count 141 (140-400) K/mcL Neutrophils # 4.1 (1.6-8.9) K/mcL BMP 12/14/16 03:28 Sodium 139 Potassium 3.5 Chloride 106 Carbon Dioxide 24 BUN 9 D Creatinine 1.16 Glucose 108 H Calcium 8.6 Liver Function 12/14/16 Range/Units 03:28 Total Bilirubin 1.1 (0.2-1.2) mg/dL AST 21 (5-34) Units/L ALT 23 (0-55) Units/L Alkaline Phosphatase 55 (38-126) Units/L Albumin 3.4 L (3.5-5.0) g/dL - ABG Interpretation ABG results: PT/INR, D-dimer PT 14.6 Seconds (9.4-12.1) H 12/14/16 03:28 - Impressions Impressions Chest CT 12/13/16 16:30 IMPRESSION: Multifocal areas of lung consolidation concerning for pneumonia. D/ / 12/13/2016 17:22:05 Jose Das MD / Cheyenne Mclaughlin Interpreting Provider: Jose Das MD - Attending Attestation I examined this patient and my medical decision-making was reviewed with the Resident Physician on 12/13/16. I agree with the documented findings, disposition and treatment plan as described except to the extent set forth below. Mr. Brown was hospitalized this morning for severe abdominal pain. He is high risk due to potential for worsening hemodynamic status and infection. Mr. Brown is having severe abdominal pain. No fever. JVD present. Exam Alert and uncomfortable Heart tachy and regular Lungs clear Abd soft but very tender I/P 1. Abd pain - CT, echo Further diagnoses and plan as above.
[2016-12-13 12:38] LABS: Bilirubin,Urine Negative (Negative); Blood,Urine Negative (Negative); Clarity,Urine Clear (Clear); Color,Urine Yellow (Yellow); Glucose,Urine (UA) Normal (Normal); Ketones,Urine Negative (Negative); Leukocyte Esterase,Urine Negative (Negative); Nitrite,Urine Negative (Negative); Protein,Urine Negative (Neg-Trace); Specific Gravity,Urine 1.005 (1.010-1.025); Urobilinogen,Urine Normal (Normal)
[2016-12-13] MEDS: 0.9 % Sodium Chloride 1,000 ML IVC SCH (15:16)
[2016-12-13] MEDS: Gabapentin 300 MG CAPSULE PO SCH ×2 (15:16→20:03)
--- NOTE | 2016-12-13 15:17 | ECHO - Doppler Report ---
Echocardiogram Name: Adolfo Brown Date of Study: 12/13/2016 Date: 1965 Ht: 67.0 in Medical Record#: [id number] Age: 51 Wt: 188.0 lb Gender: Male BSA: 1.97 Order #: [id number] Location: [facility] Room #: [id number] Reading Physician: Jeffrey Pang DO, JUDAH, ARIANNA MENCHACA Hair Spring Cutter: Paulina Durán RVT, RUBI Ordering Physician: Sharath Lugo DO Primary Physician: None Indications: bilateral JVD Impressions: Sinus tachycardia. LVEF >70%. Normal LV chamber size, wall thickness and hyperdynamic function. Mild left ventricular diastolic dysfunction. Normal right ventricular structure and function. No evidence of pulmonary hypertension. No significant valvular dysfunction. There is a trivial pericardial effusion present. Left Ventricular Wall Motion: Rest Echo Findings The apex, apical inferior, mid inferior, basal inferior, apical anterior, mid anterior, basal anterior, apical septal, mid inferior septal, basal inferior septal, apical lateral, mid anterior lateral, basal anterior lateral, mid anterior septal, mid inferior lateral, basal anterior septal and basal inferior lateral conklin were hyperkinetic. Findings: Study Quality * Technically adequate exam. ECG Findings * Sinus tachycardia. Left Ventricle * LVEF >70%. * Normal LV chamber size, wall thickness and hyperdynamic function. * Mild left ventricular diastolic dysfunction. Right Ventricle * Normal right ventricular structure and function. Left Atrium * Mildly dilated left atrium. Right Atrium * Normal right atrial size. Interatrial Septum * Interatrial septum not well evaluated. Aortic Valve * Aortic valve not well visualized. * No aortic regurgitation. * No aortic stenosis. Mitral Valve * Normal mitral valve structure and function. * No mitral regurgitation. * No mitral stenosis. Tricuspid Valve * Normal tricuspid valve structure and function. * Trace tricuspid regurgitation. * No evidence of pulmonary hypertension. Pulmonic Valve * Pulmonic valve not well visualized. * No pulmonic regurgitation. Aorta * Normally sized aortic root. Pericardium * There is a trivial pericardial effusion present. IVC * Normal IVC dimensions and inspiratory collapse. Pulmonary Artery * Normal visualized portions of the main pulmonary artery. History Hypertension Hypercholesteremia Family History of CAD Measurements: 2D Normal Values RVIDd: 3.80 cm <2.7 cm IVSd: 1.00 cm 0.6 - 1.0 cm LVIDd: 4.80 cm 3.7 - 5.6 cm LVPWd: 1.10 cm 0.6 - 1.1 cm LVIDs: 2.60 cm 1.5 - 3.6 cm AO: 2.90 cm < 4.0 cm LA: 4.00 cm 2.0 - 4.0cm %FS: 45.80 cm >25 % LA volume: 47 Mitral Valve Dec Time:176.00 msec Peak E:1.00 m/sec Peak A:1.25 m/sec E/A Ratio:0.8 Peak E' Lat Desmond:11.1 cm/s Peak E' Med Desmond:10.9 cm/s E/E' Lat Ratio:9 E/E' Med Ratio:9.2 Tricuspid Valve TV Regurg Peak Grad: 29.00mmHg TV Regurg Peak Desmond: 2.67m/sec Updated by Jeffrey Pang DO, JUDAH, ARIANNA MENCHACA on 12/13/2016 3:12:21 PM electronically signed on 12/13/2016 3:13:55 PM with status of Final Wall Motion Delarosa: 1=Normal, 2=Hypokinesis, 3=Akinesis, 4=Dyskinesis, 5=Aneurysmal, 6=Hyperkinetic, X=Not Visualized (Blank)=Missing
--- NOTE | 2016-12-13 16:27 | General Surgery Consult Note ---
<Mateo Barnett - Last Filed: 12/13/16 16:37> Date of Encounter: 12/13/16 Time of Encounter: 15:25 Assessment and Plan (1) Abdominal pain Current Visit: No Status: Chronic Nothing acute on CT abdomen/pelvis. No surgical intervention needed at this time. Recommend symptomatic treatment. Suggested age-appropriate screening colonoscopy as outpatient. Surgery will sign off at this time, thank you for involving us in this patient' s care. Please feel free to contact us with any further questions. Qualifiers: Abdominal location: unspecified location Qualified Code(s): R10.9 - Unspecified abdominal pain History of Present Illness Consult date: 12/13/16 Reason for consult: abdominal pain Requesting physician: Marvin Wade History of present illness: Mr Brown has a 3 month history of progressing abdominal pain, worse in the LLQ. Pain described as sharp and stabbing with a dull ache. Worse with eating and nothing seems to make it better. History of underlying chronic dull abdominal ache for years. Primary medicine service had concerns for peritonitis , CT abdomen obtained. This was reviewed by Dr. Renee, noting diverticulosis, no diverticulitis. Patient denies ever having a colonoscopy before. Past Med Surg Social Fam HX - Past Medical History Medical history: GERD, hepatitis, hypertension, kidney stones, liver disease Psychiatric history: anxiety, depression - Social History Smoking Status: Never smoker Smokeless Tobacco Status: No Alcohol use: none Drug use: none - Family History Father Hx Family Cardiac Disorders: Yes Hx Family Endocrine Disorder: Yes Mother Hx Family Cardiac Disorders: Yes Hx Family Endocrine Disorder: Yes Medications and Allergies Diazepam [Valium] 5 mg PO BID 11/25/15 [History] Aripiprazole 5 mg PO DAILY 11/26/16 [History] FLUoxetine HCl [Prozac] 20 mg PO DAILY 11/26/16 [History] Gabapentin [Neurontin] 300 mg PO TID 11/26/16 [History] Omeprazole [PriLOSEC] 20 mg PO DAILY 11/26/16 [History] OxyCODONE Immed Rel [Roxicodone 5 MG] 10 mg PO Q6H PRN 11/26/16 [History] Lisinopril/Hydrochlorothiazide [Lisinopril-Hctz 20-25 mg Tab] 1 tab PO DAILY 01/ 26/17 [History] Allergies acetaminophen [From Tylenol] Adverse Reaction (Verified 12/13/16 08:23) See Comments liver disease/hepatitis Review of Systems All systems PM: A 10-system review of systems was performed and is negative for pertinent findings except as documented above in the HPI. - Constitutional weakness, weight gain - EENT Nose, mouth and throat: no dysphagia - Cardiovascular no chest pain, no syncope - Gastrointestinal abdominal pain, no hematochezia, no melena - Genitourinary no dysuria General Surgery Exam Initial Vital Signs Temp Pulse Resp BP Pulse Ox 98.6 F 111 18 110/67 91 L 12/12/16 22:39 12/12/16 22:39 12/12/16 22:39 12/12/16 22:39 12/12/16 22:39 - General physical appearance well developed, well nourished, no distress - Eyes normal ocular movement - ENT normal mucosa, atraumatic, normocephalic - Neck trachea midline - Respiratory normal respiratory effort, clear to auscultation - Cardiovascular Cardiovascular exam: Present: tachycardia - Abdomen Abdomen general surgery: Present: bowel sounds present, soft, distended, tender (Above LLQ patient grimaces with brushing of skin, without pressure applied to abdomen.) Abdominal Tenderness: Present: LLQ (acutely), diffusely (mildly) - Integumentary Integumentary general surgery: Present: warm and dry, no abnormal pigmentation - Neurologic Present: CN 2-12 grossly intact - Psychiatric Psychiatric general surgery: Present: oriented to person, oriented to place, oriented to time, speech is normal Exam Initial Vital Signs Temp Pulse Resp BP Pulse Ox 98.6 F 111 18 110/67 91 L 12/12/16 22:39 12/12/16 22:39 12/12/16 22:39 12/12/16 22:39 12/12/16 22:39 Results - Labs 12/13/16 05:11 12/13/16 05:11 Abnormal lab results RBC 3.74 M/mcL (4.19-5.50) L 12/13/16 05:11 Hgb 11.7 g/dL (12.9-16.9) L D 12/13/16 05:11 Hct 35.6 % (37.5-50.1) L 12/13/16 05:11 Band Neutrophils % 24.0 % (0-4) H 12/13/16 05:11 Dohle Bodies Present (Not Present) A 12/13/16 05:11 Polychromasia 1+ (Not Present) A 12/13/16 05:11 Basophilic Stippling 1+ (Not Present) A 12/13/16 05:11 Creatinine 1.83 mg/dL (0.72-1.25) H 12/13/16 05:11 Est GFR ( Amer) 47 (> 60) L 12/13/16 05:11 Est GFR (Non-Af Amer) 39 (> 60) L 12/13/16 05:11 Glucose 139 mg/dL (70-99) H 12/13/16 05:11 Calcium 7.5 mg/dL (8.6-10.8) L 12/13/16 05:11 Magnesium 1.5 mg/dL (1.6-2.6) L 12/13/16 05:11 C-Reactive Protein 98 mg/L (Less than 5) H 12/13/16 05:11 PTH Intact 85.4 pg/ml (8.5-72.5) H 12/13/16 12:22 Ur Specific [place] 1.005 (1.010-1.025) L 12/13/16 12:25 Diabetes panel 12/13/16 Range/Units 05:11 Sodium 140 (136-145) mEq/L Potassium 3.8 (3.5-4.5) mEq/L Chloride 108 (98-109) mEq/L Carbon Dioxide 22 (19-29) mEq/L BUN 22 (8-26) mg/dL Creatinine 1.83 H (0.72-1.25) mg/dL Glucose 139 H (70-99) mg/dL Calcium 7.5 L (8.6-10.8) mg/dL Calcium panel 12/13/16 Range/Units 05:11 Calcium 7.5 L (8.6-10.8) mg/dL Phosphorus 3.5 (2.3-4.7) mg/dL Pituitary panel 12/13/16 Range/Units 05:11 Sodium 140 (136-145) mEq/L Potassium 3.8 (3.5-4.5) mEq/L Chloride 108 (98-109) mEq/L Carbon Dioxide 22 (19-29) mEq/L BUN 22 (8-26) mg/dL Creatinine 1.83 H (0.72-1.25) mg/dL Glucose 139 H (70-99) mg/dL Calcium 7.5 L (8.6-10.8) mg/dL Adrenal panel 12/13/16 Range/Units 05:11 Sodium 140 (136-145) mEq/L Potassium 3.8 (3.5-4.5) mEq/L Chloride 108 (98-109) mEq/L Carbon Dioxide 22 (19-29) mEq/L BUN 22 (8-26) mg/dL Creatinine 1.83 H (0.72-1.25) mg/dL Glucose 139 H (70-99) mg/dL Calcium 7.5 L (8.6-10.8) mg/dL All other labs normal. Consult Discharge Plan - Plan Referrals: NO,PCP [Primary Care Provider] - <Jamal Renee - Last Filed: 12/14/16 06:29> Date of Encounter: 12/14/16 Review of Systems All systems PM: A 10-system review of systems was performed and is negative for pertinent findings except as documented above in the HPI. General Surgery Exam Initial Vital Signs Temp Pulse Resp BP Pulse Ox 98.6 F 111 18 110/67 91 L 12/12/16 22:39 12/12/16 22:39 12/12/16 22:39 12/12/16 22:39 12/12/16 22:39 Exam Initial Vital Signs Temp Pulse Resp BP Pulse Ox 98.6 F 111 18 110/67 91 L 12/12/16 22:39 12/12/16 22:39 12/12/16 22:39 12/12/16 22:39 12/12/16 22:39 Results - Labs 12/14/16 03:28 12/14/16 03:28 Abnormal lab results RBC 3.96 M/mcL (4.19-5.50) L 12/14/16 03:28 Hgb 12.3 g/dL (12.9-16.9) L 12/14/16 03:28 Hct 37.4 % (37.5-50.1) L 12/14/16 03:28 Band Neutrophils % 24.0 % (0-4) H 12/13/16 05:11 Dohle Bodies Present (Not Present) A 12/13/16 05:11 Polychromasia 1+ (Not Present) A 12/13/16 05:11 Basophilic Stippling 1+ (Not Present) A 12/13/16 05:11 PT 14.6 Seconds (9.4-12.1) H 12/14/16 03:28 VBG pH 7.28 pH Units (7.32-7.42) L 12/14/16 03:28 VBG pCO2 61 mmHg (41-51) H 12/14/16 03:28 VBG HCO3 28.7 mEq/L (21-27) H 12/14/16 03:28 Glucose 108 mg/dL (70-99) H 12/14/16 03:28 Magnesium 1.5 mg/dL (1.6-2.6) L 12/13/16 05:11 C-Reactive Protein 98 mg/L (Less than 5) H 12/13/16 05:11 Albumin 3.4 g/dL (3.5-5.0) L 12/14/16 03:28 Globulin 3.7 g/dL (2.4-3.5) H 12/14/16 03:28 Albumin/Globulin Ratio 0.9 (1.1-2.2) L 12/14/16 03:28 PTH Intact 85.4 pg/ml (8.5-72.5) H 12/13/16 12:22 Ur Specific [place] 1.005 (1.010-1.025) L 12/13/16 12:25 Diabetes panel 12/13/16 12/14/16 Range/Units 05:11 03:28 Sodium 140 139 (136-145) mEq/L Potassium 3.8 3.5 (3.5-4.5) mEq/L Chloride 108 106 (98-109) mEq/L Carbon Dioxide 22 24 (19-29) mEq/L BUN 22 9 D (8-26) mg/dL Creatinine 1.83 H 1.16 (0.72-1.25) mg/dL Glucose 139 H 108 H (70-99) mg/dL Calcium 7.5 L 8.6 (8.6-10.8) mg/dL AST 21 (5-34) Units/L ALT 23 (0-55) Units/L Alkaline Phosphatase 55 (38-126) Units/L Albumin 3.4 L (3.5-5.0) g/dL Calcium panel 12/13/16 12/14/16 Range/Units 05:11 03:28 Calcium 7.5 L 8.6 (8.6-10.8) mg/dL Phosphorus 3.5 (2.3-4.7) mg/dL Albumin 3.4 L (3.5-5.0) g/dL Pituitary panel 12/13/16 12/14/16 Range/Units 05:11 03:28 Sodium 140 139 (136-145) mEq/L Potassium 3.8 3.5 (3.5-4.5) mEq/L Chloride 108 106 (98-109) mEq/L Carbon Dioxide 22 24 (19-29) mEq/L BUN 22 9 D (8-26) mg/dL Creatinine 1.83 H 1.16 (0.72-1.25) mg/dL Glucose 139 H 108 H (70-99) mg/dL Calcium 7.5 L 8.6 (8.6-10.8) mg/dL Adrenal panel 12/13/16 12/14/16 Range/Units 05:11 03:28 Sodium 140 139 (136-145) mEq/L Potassium 3.8 3.5 (3.5-4.5) mEq/L Chloride 108 106 (98-109) mEq/L Carbon Dioxide 22 24 (19-29) mEq/L BUN 22 9 D (8-26) mg/dL Creatinine 1.83 H 1.16 (0.72-1.25) mg/dL Glucose 139 H 108 H (70-99) mg/dL Calcium 7.5 L 8.6 (8.6-10.8) mg/dL Total Bilirubin 1.1 (0.2-1.2) mg/dL AST 21 (5-34) Units/L ALT 23 (0-55) Units/L Alkaline Phosphatase 55 (38-126) Units/L Albumin 3.4 L (3.5-5.0) g/dL All other labs normal. - Attending Attestation I examined this patient and my medical decision-making was reviewed with the SENIOR OFFICE ASSISTANT/PA/Advanced Practice Nurse/Resident Physician. I agree with the documented findings, disposition and treatment plan as described except to the extent set forth below. Jamal Renee MD FACS
[2016-12-13] MEDS: *HR* Heparin 5,000 UNIT/ML VIAL SQ SCH (18:44)
[2016-12-13] MEDS: diazePAM 5 MG TABLET PO SCH (20:03)
[2016-12-14] MEDS: Cefotaxime 2,000 MG in D5% in Water 100 ML IVPB SCH ×2 (00:36→08:49)
[2016-12-14] MEDS: *HR* Heparin 5,000 UNIT/ML VIAL SQ SCH ×4 (00:37→23:26)
[2016-12-14] MEDS: 0.9 % Sodium Chloride 1,000 ML IVC SCH ×3 (00:37→17:01)
[2016-12-14 03:56] LABS: VBG HCO3 28.7 mEq/L (21-27); VBG PH 7.28 pH Units (7.32-7.42)
[2016-12-14 04:03] LABS: INR 1.3; Prothrombin Time 14.6 Seconds (9.4-12.1)
[2016-12-14 04:05] LABS: Activated Partial Thrombo Time 32.2 Seconds (26.0-36.0)
[2016-12-14 04:11] LABS: Basophils % 0.2 %; Eosinophils # 0.1 K/mcL (0.0-0.6); Eosinophils % 1.7 %; Hematocrit 37.4 % (37.5-50.1); Hemoglobin 12.3 g/dL (12.9-16.9); Immature Granulocytes % 0.7 % (0-4); Lymphocytes # 1.4 K/mcL (0.6-4.6); Lymphocytes % 23.1 %; Mean Corpuscular HGB Conc 32.9 g/dL (31.6-35.5); Mean Corpuscular Hemoglobin 31.1 pg (28.0-33.3); Mean Corpuscular Volume 94.4 fL (83.0-100.0); Mean Platelet Volume 10.5 fL (9.4-12.4); Monocytes # 0.4 K/mcL (0.0-1.3); Monocytes % 6.8 %; Neutrophils # 4.1 K/mcL (1.6-8.9); Platelet Count 141 K/mcL (140-400); Red Blood Count 3.96 M/mcL (4.19-5.50); Red Cell Distribution Width 13.4 % (11.5-14.5); Segmented Neutrophils % 67.5 %
[2016-12-14 04:14] LABS: Alanine Aminotransferase 23 Units/L (0-55); Albumin 3.4 g/dL (3.5-5.0); Albumin/Globulin Ratio 0.9 (1.1-2.2); Alkaline Phosphatase 55 Units/L (38-126); Aspartate Amino Transferase 21 Units/L (5-34); BUN/Creatinine Ratio 8 (6-26); Bilirubin,Total 1.1 mg/dL (0.2-1.2); Calcium 8.6 mg/dL (8.6-10.8); Carbon Dioxide 24 mEq/L (19-29); Chloride 106 mEq/L (98-109); Globulin 3.7 g/dL (2.4-3.5); Glucose 108 mg/dL (70-99); Osmolality,Calculated 287 (280-300); Potassium 3.5 mEq/L (3.5-4.5); Sodium 139 mEq/L (136-145); Total Protein 7.1 g/dL (6.0-8.3); eGFR For African Americans > 60 (> 60); eGFR For Non-African Americans > 60 (> 60)
[2016-12-14 04:16] LABS: Blood Urea Nitrogen 9 mg/dL (8-26)
[2016-12-14] MEDS: *HR* OxyCODONE Immed Rel 5 MG TABLET PO PRN ×2 (06:28→12:49)
[2016-12-14] MEDS: ARIPiprazole 5 MG TABLET PO SCH (08:48)
[2016-12-14] MEDS: FLUoxetine 20 MG CAPSULE PO SCH (08:48)
[2016-12-14] MEDS: Pantoprazole 40 MG VIAL IVP SCH (08:49)
[2016-12-14] MEDS: Gabapentin 300 MG CAPSULE PO SCH ×3 (08:49→20:44)
[2016-12-14] MEDS: diazePAM 5 MG TABLET PO SCH ×2 (08:49→22:14)
--- NOTE | 2016-12-14 09:58 | Discharge Summary ---
Date of Encounter: 12/14/16 Time of Encounter: 09:58 - Discharge Diagnosis (1) GERD (gastroesophageal reflux disease) Priority: Primary Status: Acute Qualifiers: Esophagitis presence: esophagitis presence not specified Qualified Code(s) : K21.9 - Gastro-esophageal reflux disease without esophagitis (2) Abdominal pain Priority: Primary Status: Chronic Qualifiers: Abdominal location: unspecified location Qualified Code(s): R10.9 - Unspecified abdominal pain - Discharge Medications Prescriptions: Docusate [Colace] 100 mg PO BID #60 capsule Home Medications: Diazepam [Valium] 5 mg PO BID 11/25/15 [History] Aripiprazole 5 mg PO DAILY 11/26/16 [History] FLUoxetine HCl [Prozac] 20 mg PO DAILY 11/26/16 [History] Gabapentin [Neurontin] 300 mg PO TID 11/26/16 [History] Omeprazole [PriLOSEC] 20 mg PO DAILY 11/26/16 [History] OxyCODONE Immed Rel [Roxicodone 5 MG] 10 mg PO Q6H PRN 11/26/16 [History] Lisinopril/Hydrochlorothiazide [Lisinopril-Hctz 20-25 mg Tab] 1 tab PO DAILY [History] Docusate [Colace] 100 mg PO BID #60 capsule 12/14/16 [Rx] Allergies/Adverse Reactions: Allergies acetaminophen [From Tylenol] Adverse Reaction (Verified 12/13/16 08:23) See Comments liver disease/hepatitis Procedures/tests Complete & Pending: Procedures Performed prior 72 hours Category Date Time Status CT chest wo con [CT] Routine Cat Scan 12/13/16 16:30 Completed abdominal/pelvis CT without contrast [CT abd pelvis wo Cat Scan 12/13/16 11: 40 Completed iv oral only] [CT] Stat EV echocardiogram Stat Y 12/13/16 11:21 Completed Date of admission: 12/12/16 22:18 Primary care physician: PCP NO Consults: 12/13/16 09:01 Consult to Interventional Radiology [CONS] Stat Consulting Provider: Radiology Interventional Cols Reason for Consult: paracentesis Call Completed: No 12/13/16 15:29 Consult to Surgery [CONS] Routine Consulting Provider: [facility] Reason for Consult: Diffused abd pain. Concern peritonitis. Bands. 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 Please, be evaluated in the ED. - Diet and Activity Activity: increase activity as tolerated Diet: advance to your usual diet Interval History: -Patient randomly mentioned fainting spells. States over the past 4 months he has sudden loss of consciousness that is unproved. No inciting or aggravating triggers. These events occur sometimes several days out of the week, or could skip a week. Patient admits to blurry vision and frontal headache and weakness. When he awakes from these episodes he is not confused or dazed. Denies any recent fevers or travels. History of blood clots. He has very close follow-up with his primary care doctor, feels a monthly pain medication. He has not mentioned this to his family doctor because "there are so many other things to deal with". He is accompanied in the room by his father. he is able to walk to and from the bathroom without difficulty. Hospital course: Mr. Brown is a 51 year old male - Time Spent with Patient Total time spent providing and/or coordinating discharge services: - Constitutional Vitals: Temp Pulse Resp BP Pulse Ox 99.8 F H 117 17 133/85 97 12/14/16 07:39 12/14/16 07:39 12/14/16 07:39 12/14/16 07:39 12/14/16 09:00 General appearance: Present: disheveled, mild distress, A&O X 3
[2016-12-14 12:29] LABS: Hepatitis A Antibody IgM Nonreactive (Nonreactive); Hepatitis B Core IgM Nonreactive (Nonreactive); Hepatitis B Surface Antigen Nonreactive (Nonreactive)
[2016-12-14 13:04] LABS: Hepatitis C Virus Antibody Reactive (Nonreactive)
--- NOTE | 2016-12-14 14:46 | Event Note ---
<Marvin Wade - Last Filed: 12/15/16 08:45> Date of Encounter: 12/14/16 Time of Encounter: 14:44 Patient was evaluated by physical therapy. Physical therapy said the patient was very unstable on his feet. Recommend a swing facility for the time being. Social work is currently on the case. In order to provide the best care for the patient, suggested that the patient stay overnight and the discharge when a swing bed is available. Spoke with patient because he wanted to talk about his pain medicine. OAARS reviewed prior. Patient states his medication was recently switched by his PCP to 10mg q4h 120pills a month. [place] indicates 5mg q6h 120/month. Told patient 120 pills is q6h. He then smacked his forehead with his hand and stated that he made a math mistake. 5 min later patient states that he is having a frontal/ temporal headache that is really bothering him as he is pushing on his temples. When I very lightly pushed on his temples, patient very sensitive and pulled away in pain. Pain medication switched to 5mg q3h per patient request. Patient resting comfortably in his bed. In no acute distress. Father is present at bedside. <Sharath Lugo - Last Filed: 12/15/16 12:01> Date of Encounter: 12/15/16 Mr. Brown is going to go to acute rehab/swing bed. Cannot go until Saturday. Still having pain issues. Above noted. Pain most likely related to hepatitis as he has acute active Hep C.
[2016-12-14] MEDS: levoFLOXacin 750 MG TABLET PO SCH (15:40)
--- NOTE | 2016-12-14 16:17 | Electrocardiograph Report ---
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
[2016-12-14] MEDS: *HR* OxyCODONE Immed Rel 5 MG TABLET PO SCH ×3 (17:01→23:26)
--- NOTE | 2016-12-14 17:37 | Internal Med Progress Note ---
<Marvin Wade - Last Filed: 12/14/16 17:34> Date of Encounter: 12/14/16 Time of Encounter: 08:00 - Assessment and plan (1) Abdominal pain Current Visit: No Status: Chronic Assessment and plan: 12/13/15 -Patient presented with peritoneal signs. Elevated Bands. VBG, Lipase, AST/ALT WNL -Multiple CT scans in past. CT ab/pl today is negative for SBP, Perf, Diverticulitis -Evaluated by Surgeon at bedside. No surgical abdomen and no concern for Mesenteric ischemia-patient is hungry and can ambulate, has gained weight over the last several months. -Continue pain medicine and abx and fluids. May advance diet as tolerated. Will continue heparin-patient in JOSEFA, dont use lovenox. 12/14/15 -Patient still complains of abdominal pain despite pain medication. Patient ambulates to the bathroom. Indicates pain with very light touch. -Lab values and imaging do not point to a clear source of abdominal pain -Hours spent with patient and father at bedside to explain the possible cause of the pain -Spoke with patient concerning narcotic management. See event note above -Per patient preference, changed medication to 5mg q3h for pain. Qualifiers: Abdominal location: unspecified location Qualified Code(s): R10.9 - Unspecified abdominal pain (2) Pneumonia Current Visit: Yes Status: Acute Assessment and plan: -Patient is asymptomatic-Denies CP or SOB. -Discovered on CT on 12/13/15. -Patient started on oral levofloxacin for Community acquired pneumonia. Levaquin appropriate for patient considering he has had frequent visits to the emergency department, lives with parents. 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 Continue to monitor. Qualifiers: Pneumonia type: due to unspecified organism Laterality: bilateral Qualified Code(s): J18.9 - Pneumonia, unspecified organism (3) GERD (gastroesophageal reflux disease) Current Visit: Yes Status: Acute Assessment and plan: -Known Hiatal hernia. -Resuming home omeprazole medication Qualifiers: Esophagitis presence: esophagitis presence not specified Qualified Code(s) : K21.9 - Gastro-esophageal reflux disease without esophagitis (4) Acute kidney injury Current Visit: Yes Status: Acute Assessment and plan: -Unknown cause. Patient not complaining of flank pain. Does complain of problems with urinary stream Protectomy. -CT negative for stones. Urine negative. -Patient JOSEFA improved compared to yesterday. Continue fluids. No need for nephrology or urology at this time. - Subjective Interval history: 51M c/c abdominal pain. Abdominal pain present for years, however over the last 4 months he has had progression in his pain. Pain described as sharp and stabbing with a dull ache. Worse with eating and nothing seems to make it better. He has received multiple CT abdominal exams without explanation or source of his pain. Today, he feels he is doing the same compared to yesterday. Abdominal pain is mainly LLQ, sharp and stabbing. He does have an underlying diffused abdominal pain that is constant dull ache. He denies any F/Cough/N/V/D/changes to his bowel and bladder. Able to ambulate to the bathroom, is hungry and would like to eat. Family present in room. Greater >2h spend with him and the family. Patient randomly mentioned fainting spells. States over the past 4 months he has sudden loss of consciousness that is unproved. No inciting or aggravating triggers. These events occur sometimes several days out of the week, or could skip a week. Patient admits to blurry vision and frontal headache and weakness. When he awakes from these episodes he is not confused or dazed. Denies any recent fevers or travels. History of blood clots. He has very close follow-up with his primary care doctor, feels a monthly pain medication. He has not mentioned this to his family doctor because "there are so many other things to deal with". He is accompanied in the room by his father. he is able to walk to and from the bathroom without difficulty. Hospital stay: Abdominal pain Admitted for abdominal pain. Presents with with peritoneal signs. Elevated Bands. VBG, Lipase, AST/ALT WNL -Multiple CT scans in past. CT ab/pl today is negative for SBP, Perf, Diverticulitis -Evaluated by Surgeon at bedside. No surgical abdomen and no concern for Mesenteric ischemia-patient is hungry and can ambulate, has gained weight over the last several months. SOB -Patient having increase work of breathing, tachy, red around the neck, JVD bilaterally and possible friction rub/murmur. -Concern for constrictive pericarditis, pericardiac effusion, endocarditis. -Patient denies IV drug use now or in his past. Is unaware he has a tricuspid murmur. -ECHO unremarkable. Will get CT non contrast of chest reveals bilateral pneumonia. Patient is asymptomatic. - Constitutional Vitals: Temp Pulse Resp BP Pulse Ox 98.3 F 90 16 132/95 94 L 12/14/16 15:26 12/14/16 15:26 12/14/16 15:26 12/14/16 15:26 12/14/16 15:26 General appearance: Present: mild distress, A&O X 3, answers questions appropriately - Head Head exam: Present: atraumatic, normal inspection, normocephalic - Eye Eye exam: Present: PERRL, conjuntiva pink, sclera anicteric Pupils: Present: PERRL - Neck Neck exam general surgery: Present: supple, trachea midline. Absent: lymphadenopathy - Respiratory Respiratory exam: Present: CTAB. Absent: accessory muscle use, rales, rhonchi, wheezes - Cardiovascular Cardiovascular exam: Present: RRR, systolic murmur (tricuspid ) - GI/Abdominal GI/Abdominal exam: Present: guarding, hyperactive bowel sounds, tenderness. Absent: distended, firm, soft - Expanded GI/Abdominal Exam GI/Abdominal exam expanded: Absent: ascites - Neurological Exam Neurological exam: Present: alert, oriented X3, no focal deficits. Absent: facial droop, speech deficit - Psychiatric Psychiatric exam: Present: normal affect, normal mood Internal Medicine: Result - Labs CBC & Chem 7: 12/14/16 03:28 12/14/16 03:28 Labs: Short CBC 12/14/16 Range/Units 03:28 WBC 6.1 (4.3-11.1) K/mcL Hgb 12.3 L (12.9-16.9) g/dL Hct 37.4 L (37.5-50.1) % Plt Count 141 (140-400) K/mcL Neutrophils # 4.1 (1.6-8.9) K/mcL BMP 12/14/16 03:28 Sodium 139 Potassium 3.5 Chloride 106 Carbon Dioxide 24 BUN 9 D Creatinine 1.16 Glucose 108 H Calcium 8.6 Liver Function 12/14/16 Range/Units 03:28 Total Bilirubin 1.1 (0.2-1.2) mg/dL AST 21 (5-34) Units/L ALT 23 (0-55) Units/L Alkaline Phosphatase 55 (38-126) Units/L Albumin 3.4 L (3.5-5.0) g/dL - ABG Interpretation ABG results: PT/INR, D-dimer PT 14.6 Seconds (9.4-12.1) H 12/14/16 03:28 - Impressions Impressions Chest CT 12/13/16 16:30 IMPRESSION: Multifocal areas of lung consolidation concerning for pneumonia. 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 Please, be evaluated in the ED. Referrals: Jamal Renee MD [Partnered Physician] - 12/25/16 10:10 am NO,PCP [Primary Care Provider] - Prescriptions: Docusate [Colace] 100 mg PO BID #60 capsule <Sharath Lugo - Last Filed: 12/14/16 18:26> Date of Encounter: 12/14/16 - Assessment and plan (1) SIRS (systemic inflammatory response syndrome) Current Visit: Yes Status: Acute (2) Pneumonia Current Visit: Yes Status: Acute Qualifiers: Pneumonia type: due to unspecified organism Laterality: bilateral Lung location: upper lobe of lung Qualified Code(s): J18.9 - Pneumonia, unspecified organism (3) Abdominal pain Current Visit: No Status: Chronic Qualifiers: Abdominal location: generalized Qualified Code(s): R10.84 - Generalized abdominal pain (4) Unsteady gait Current Visit: Yes Status: Acute (5) Falls Current Visit: Yes Status: Acute Qualifiers: Encounter type: subsequent encounter Qualified Code(s): W19.XXXD - Unspecified fall, subsequent encounter (6) Hepatitis C infection Current Visit: Yes Status: Acute Qualifiers: Viral hepatitis chronicity: chronic Hepatic coma status: without hepatic coma Qualified Code(s): B18.2 - Chronic viral hepatitis C - Constitutional Vitals: Temp Pulse Resp BP Pulse Ox 98.3 F 90 16 132/95 94 L 12/14/16 15:26 12/14/16 15:26 12/14/16 15:26 12/14/16 15:26 12/14/16 15:26 Internal Medicine: Result - Labs CBC & Chem 7: 12/14/16 03:28 12/14/16 03:28 Labs: Short CBC 12/14/16 Range/Units 03:28 WBC 6.1 (4.3-11.1) K/mcL Hgb 12.3 L (12.9-16.9) g/dL Hct 37.4 L (37.5-50.1) % Plt Count 141 (140-400) K/mcL Neutrophils # 4.1 (1.6-8.9) K/mcL BMP 12/14/16 03:28 Sodium 139 Potassium 3.5 Chloride 106 Carbon Dioxide 24 BUN 9 D Creatinine 1.16 Glucose 108 H Calcium 8.6 Liver Function 12/14/16 Range/Units 03:28 Total Bilirubin 1.1 (0.2-1.2) mg/dL AST 21 (5-34) Units/L ALT 23 (0-55) Units/L Alkaline Phosphatase 55 (38-126) Units/L Albumin 3.4 L (3.5-5.0) g/dL - ABG Interpretation ABG results: PT/INR, D-dimer PT 14.6 Seconds (9.4-12.1) H 12/14/16 03:28 - Impressions Impressions Chest CT 12/13/16 16:30 IMPRESSION: Multifocal areas of lung consolidation concerning for pneumonia. D/ : / 12/13/2016 17:22:05 Jose Das MD / Cheyenne Mclaughlin Interpreting Provider: Jose Das MD - Attending Attestation I examined this patient and my medical decision-making was reviewed with the Resident Physician on 12/14/16. I agree with the documented findings, disposition and treatment plan as described except to the extent set forth below. Mr. Brown is currently admitted for abd pain and pneumonia. He remains moderate to high risk due to potential for worsening respiratory symptoms and infections. Mr. Brown relates that he is very unsteady on his feet and has had multiple falls. He continues to have abd pain. On IV abx to cover pneumonia. No fever or chills. Exam Alert. Comfortable Heart reg and slightly tachy Lungs diminished but clear Abd soft and photographer still - bowel sounds present I/P 1. Abd pain - continue PO meds 2. Pneumonia - CAP - on IV abx 3. Falls - PT/OT evals Further diagnoses and plan as above.
[2016-12-15] MEDS: 0.9 % Sodium Chloride 1,000 ML IVC SCH ×3 (01:14→19:09)
[2016-12-15] MEDS: *HR* OxyCODONE Immed Rel 5 MG TABLET PO SCH ×3 (02:15→08:08)
[2016-12-15 05:08] LABS: Basophils % 0.3 %; Eosinophils # 0.2 K/mcL (0.0-0.6); Eosinophils % 5.8 %; Hematocrit 36.4 % (37.5-50.1); Hemoglobin 11.9 g/dL (12.9-16.9); Immature Granulocytes % 0.5 % (0-4); Lymphocytes % 26.1 %; Mean Corpuscular HGB Conc 32.7 g/dL (31.6-35.5); Mean Corpuscular Volume 94.8 fL (83.0-100.0); Mean Platelet Volume 10.9 fL (9.4-12.4); Monocytes # 0.3 K/mcL (0.0-1.3); Monocytes % 8.5 %; Neutrophils # 2.1 K/mcL (1.6-8.9); Platelet Count 159 K/mcL (140-400); Red Blood Count 3.84 M/mcL (4.19-5.50); Red Cell Distribution Width 13.3 % (11.5-14.5); Segmented Neutrophils % 58.8 %
[2016-12-15 05:18] LABS: Alanine Aminotransferase 20 Units/L (0-55); Albumin/Globulin Ratio 0.8 (1.1-2.2); Alkaline Phosphatase 52 Units/L (38-126); Aspartate Amino Transferase 22 Units/L (5-34); BUN/Creatinine Ratio 6 (6-26); Bilirubin,Total 0.6 mg/dL (0.2-1.2); Blood Urea Nitrogen 6 mg/dL (8-26); Calcium 8.9 mg/dL (8.6-10.8); Carbon Dioxide 26 mEq/L (19-29); Chloride 105 mEq/L (98-109); Globulin 3.8 g/dL (2.4-3.5); Glucose 112 mg/dL (70-99); Osmolality,Calculated 292 (280-300); Potassium 3.5 mEq/L (3.5-4.5); Sodium 142 mEq/L (136-145); Total Protein 6.8 g/dL (6.0-8.3); eGFR For African Americans > 60 (> 60); eGFR For Non-African Americans > 60 (> 60)
[2016-12-15] MEDS: *HR* Heparin 5,000 UNIT/ML VIAL SQ SCH ×3 (06:14→22:39)
[2016-12-15] MEDS: Gabapentin 300 MG CAPSULE PO SCH (08:33)
[2016-12-15] MEDS: ARIPiprazole 5 MG TABLET PO SCH (08:33)
[2016-12-15] MEDS: FLUoxetine 20 MG CAPSULE PO SCH (08:33)
[2016-12-15] MEDS: diazePAM 5 MG TABLET PO SCH ×2 (08:33→22:39)
[2016-12-15] MEDS ORDERED: valACYclovir 500 MG TABLET PO ONE (10:47)
[2016-12-15] MEDS: *HR* OxyCODONE Immed Rel 5 MG TABLET PO PRN ×3 (10:56→22:38)
[2016-12-15] MEDS: levoFLOXacin 750 MG TABLET PO SCH (13:32)
--- NOTE | 2016-12-15 13:55 | Internal Med Progress Note ---
Date of Encounter: 12/15/16 Time of Encounter: 10:00 - Assessment and plan (1) SIRS (systemic inflammatory response syndrome) Current Visit: Yes Status: Resolved Assessment and plan: Clinically he is improving. Remains somewhat tachycardic. Continuing on IV abx as well. (2) Pneumonia due to aerobic bacteria Current Visit: Yes Status: Acute Assessment and plan: Multifocal pneumonia on CT. Currently on abx. (3) Abdominal pain Current Visit: No Status: Chronic Assessment and plan: Pain is most likely due to chronic issues including chronic active hepatitis. Adjusted medication to how he takes it at home. Qualifiers: Abdominal location: generalized Qualified Code(s): R10.84 - Generalized abdominal pain (4) Unsteady gait Current Visit: Yes Status: Acute Assessment and plan: Pt to go to swing bed for rehab and hopefully lessen falls. Due to patient's prior alcohol history will check B12 levels and give thiamine as well. (5) Falls Current Visit: Yes Status: Acute Assessment and plan: Plan for swing bed tomorrow. Qualifiers: Encounter type: subsequent encounter Qualified Code(s): W19.XXXD - Unspecified fall, subsequent encounter (6) Hepatitis C infection Current Visit: Yes Status: Chronic Assessment and plan: Pt states he needs to have a liver biopsy in the future. Qualifiers: Viral hepatitis chronicity: chronic Hepatic coma status: without hepatic coma Qualified Code(s): B18.2 - Chronic viral hepatitis C (7) GERD (gastroesophageal reflux disease) Current Visit: Yes Status: Chronic Assessment and plan: Continue supportive care. Qualifiers: Esophagitis presence: without esophagitis Qualified Code(s): K21.9 - Gastro -esophageal reflux disease without esophagitis (8) Chronic pain Current Visit: Yes Status: Chronic Assessment and plan: Currently on home regimen. Qualifiers: Chronic pain type: chronic pain syndrome Qualified Code(s): G89.4 - Chronic pain syndrome - Subjective Interval history: Mr. Brown is currently admitted for acute bilateral pneumonia, abd pain and unsteady gait with recurrent falls. He remains high risk due to potential for worsening respiratory status and failure as well as pain issues. Mr. Brown continues to have abd pain - diffuse. He normally takes the Oxy IR 10mg q4h while awake and none at night. No nausea. His breathing is OK. He is on oxygen currently. He has not gotten up today. We discussed his Hep C and he stated he needs to have a liver biopsy to pursue treatment if possible. No diarrhea currently. Had one small BM yesterday. - Constitutional Vitals: Temp Pulse Resp BP Pulse Ox 98.3 F 95 16 141/90 90 L 12/15/16 07:00 12/15/16 07:00 12/15/16 07:00 12/15/16 07:00 12/15/16 07:00 General appearance: Present: mild distress, A&O X 3, answers questions appropriately - Head Head exam: Present: normocephalic - Eye Eye exam: Present: conjuntiva pink - ENT ENT exam: Present: mucous membranes dry - Respiratory Respiratory exam: Present: decreased breath sounds. Absent: rhonchi, wheezes - Cardiovascular Cardiovascular exam: Present: RRR, tachycardia - GI/Abdominal GI/Abdominal exam: Present: soft, tenderness - Extremities Exam Extremities exam: Present: warm. Absent: pedal edema - Neurological Exam Neurological exam: Present: alert, oriented X3 - Skin Skin exam: Present: warm. Absent: rash Internal Medicine: Result - Labs CBC & Chem 7: 12/15/16 04:06 12/15/16 04:06 Labs: Short CBC 12/15/16 Range/Units 04:06 WBC 3.6 L (4.3-11.1) K/mcL Hgb 11.9 L (12.9-16.9) g/dL Hct 36.4 L (37.5-50.1) % Plt Count 159 (140-400) K/mcL Neutrophils # 2.1 (1.6-8.9) K/mcL BMP 12/15/16 04:06 Sodium 142 Potassium 3.5 Chloride 105 Carbon Dioxide 26 BUN 6 L Creatinine 0.93 Glucose 112 H Calcium 8.9 Liver Function 12/15/16 Range/Units 04:06 Total Bilirubin 0.6 (0.2-1.2) mg/dL AST 22 (5-34) Units/L ALT 20 (0-55) Units/L Alkaline Phosphatase 52 (38-126) Units/L Albumin 3.0 L (3.5-5.0) g/dL - ABG Interpretation ABG results: PT/INR, D-dimer PT 14.6 Seconds (9.4-12.1) H 12/14/16 03:28 - VTE Documentation of Mechanical Device: Intermittent pneumatic compression device Consult Discharge Plan - Plan Instructions: Chest Pain (DC), Diverticulitis (DC), Cirrhosis (DC), Cirrhosis ( GEN), Abuse of Alcohol (DC), Abuse of Alcohol (GEN), Chronic Hypertension (DC), Ascites (DC), Ascites (GEN), Viral Hepatitis C, 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 Please, be evaluated in the ED. Referrals: Jamal Renee MD [Partnered Physician] - 12/25/16 10:10 am NO,PCP [Primary Care Provider] - Prescriptions: Docusate [Colace] 100 mg PO BID #60 capsule
[2016-12-15] MEDS ORDERED: Magnesium Sulfate 1 GM in D5% in Water 100 ML IV ONE (14:23)
--- NOTE | 2016-12-15 14:27 | Physician Discharge Referral ---
ExtendedCare Referral Info Transfer To: [facility] Provider in Charge: Sharath Lugo DO Provider in Charge after Transfer: Other (Physician at facility) Institutional Level of Care: Skilled - Diagnosis (1) SIRS (systemic inflammatory response syndrome) Priority: Primary Status: Resolved (2) Pneumonia due to aerobic bacteria Priority: Primary Status: Acute (3) Abdominal pain Priority: Secondary Status: Chronic (4) Unsteady gait Priority: Primary Status: Acute (5) Falls Priority: Primary Status: Acute (6) Hepatitis C infection Priority: Secondary Status: Chronic (7) GERD (gastroesophageal reflux disease) Priority: Secondary Status: Chronic (8) Chronic pain Status: Chronic Expected Duration of Placement: Less than 30 days Prognosis: Fair Aware of Diagnosis: Patient, Family Aware of Prognosis: Patient, Family - Transfer Medications Prescriptions: OxyCODONE Immed Rel [Roxicodone 5 MG] 5 - 10 mg PO Q4HR PRN #10 tablet PRN Reason: Pain Acyclovir [Zovirax] 2 gm TP 5XD #1 cream..g. Docusate [Colace] 100 mg PO BID #60 capsule Home Medications: Diazepam [Valium] 5 mg PO BID 11/25/15 [History] Aripiprazole 5 mg PO DAILY 11/26/16 [History] FLUoxetine HCl [Prozac] 20 mg PO DAILY 11/26/16 [History] Gabapentin [Neurontin] 300 mg PO TID 11/26/16 [History] OxyCODONE Immed Rel [Roxicodone 5 MG] 10 mg PO Q6H PRN 11/26/16 [History] Lisinopril/Hydrochlorothiazide [Lisinopril-Hctz 20-25 mg Tab] 1 tab PO DAILY [History] Docusate [Colace] 100 mg PO BID #60 capsule 12/14/16 [Rx] Acyclovir [Zovirax] 2 gm TP 5XD #1 cream..g. 12/16/16 [Rx] Levofloxacin 750 mg PO Q24H #0 tablet 12/16/16 [Rx] Magnesium Oxide [Mag-Ox] 400 mg PO DAILY #0 tablet 12/16/16 [Rx] Omeprazole [PriLOSEC] 40 mg PO DAILY #0 12/16/16 [Rx] OxyCODONE Immed Rel [Roxicodone 5 MG] 5 - 10 mg PO Q4HR PRN #10 tablet 12/16/16 [Rx] Polyethylene Glycol 3350 [MiraLAX] 17 gm PO DAILY powd.pack 12/16/16 [Rx] Thiamine (B-1) [Vitamin B-1] 100 mg PO DAILY tablet 12/16/16 [Rx] Valacyclovir [Valtrex] 1,000 mg PO BID #0 tablet 12/16/16 [Rx] Allergies/Adverse Reactions: Allergies acetaminophen [From Tylenol] Adverse Reaction (Verified 12/13/16 08:23) See Comments liver disease/hepatitis - Respiratory Orders Other (Maintain oxygen saturation greater than 90%) Smoking Cessation: Smoking cessation has been advised. For more information, call the [place] Tobacco Quit Line at 2-231-AZYU-NOW. - Lab Orders Lab Orders: 2 Step Mantoux Test per State regulation - Ancillary Orders May use pressure relief devices daily prn, May consult with Dentist, Colorist Dyer, Strategic Manager PRN - Advance Directives Code Status: Full Code - History and Physical History/Physical reviewed & approved w/add comments: Pt less dyspneic and tachycardic. Abdomen less tender than admit - Mobility Orders Ambulate - Rehabiliation Orders Rehab Potential: Fair Rehab Orders: Evaluation for Physical Therapy, Evaluation for Occupational Therapy - Treatments Skin tear care topically daily PRN per policy, May check for fecal impaction rectally daily PRN, Fleet enema rectally every other day PRN cleansing purposes - Diet Orders Regular CERTIFICATION: I certify that the transfer of the above named patient to an Extended Care Facility is necessary for the continuing treatment of the diagnosis listed. The above information is true and accurate reflection of patient's current condition. Confidential - Redisclosure prohibited without a patient's written consent.
[2016-12-15] MEDS: Gabapentin 400 MG CAPSULE PO SCH ×2 (16:24→22:38)
[2016-12-15] MEDS: Thiamine (B-1) 100 MG TABLET PO SCH (18:00)
[2016-12-15] MEDS: valACYclovir 500 MG TABLET PO SCH (22:39)
[2016-12-16] MEDS: *HR* OxyCODONE Immed Rel 5 MG TABLET PO PRN ×2 (06:47→12:14)
[2016-12-16] MEDS: 0.9 % Sodium Chloride 1,000 ML IVC SCH (06:48)
[2016-12-16 07:01] VITALS: BP 135/96
[2016-12-16 07:04] LABS: Basophils % 0.3 %; Eosinophils # 0.3 K/mcL (0.0-0.6); Eosinophils % 6.9 %; Hematocrit 34.5 % (37.5-50.1); Hemoglobin 11.6 g/dL (12.9-16.9); Immature Granulocytes % 0.8 % (0-4); Lymphocytes # 1.1 K/mcL (0.6-4.6); Lymphocytes % 31.2 %; Mean Corpuscular HGB Conc 33.6 g/dL (31.6-35.5); Mean Corpuscular Volume 92.2 fL (83.0-100.0); Mean Platelet Volume 10.5 fL (9.4-12.4); Monocytes # 0.4 K/mcL (0.0-1.3); Monocytes % 9.7 %; Neutrophils # 1.9 K/mcL (1.6-8.9); Platelet Count 217 K/mcL (140-400); Red Blood Count 3.74 M/mcL (4.19-5.50); Red Cell Distribution Width 13.2 % (11.5-14.5); Segmented Neutrophils % 51.1 %
[2016-12-16 07:16] LABS: INR 1.3; Prothrombin Time 13.9 Seconds (9.4-12.1)
[2016-12-16 07:17] LABS: Alanine Aminotransferase 23 Units/L (0-55); Albumin 3.1 g/dL (3.5-5.0); Albumin/Globulin Ratio 0.8 (1.1-2.2); Alkaline Phosphatase 48 Units/L (38-126); Aspartate Amino Transferase 32 Units/L (5-34); BUN/Creatinine Ratio 6 (6-26); Bilirubin,Total 0.6 mg/dL (0.2-1.2); Calcium 9.3 mg/dL (8.6-10.8); Carbon Dioxide 29 mEq/L (19-29); Chloride 104 mEq/L (98-109); Globulin 3.8 g/dL (2.4-3.5); Glucose 103 mg/dL (70-99); Magnesium 1.4 mg/dL (1.6-2.6); Osmolality,Calculated 294 (280-300); Potassium 3.5 mEq/L (3.5-4.5); Sodium 143 mEq/L (136-145); Total Protein 6.9 g/dL (6.0-8.3); eGFR For African Americans > 60 (> 60); eGFR For Non-African Americans > 60 (> 60)
[2016-12-16 07:18] LABS: Blood Urea Nitrogen 5 mg/dL (8-26)
[2016-12-16] MEDS: *HR* Heparin 5,000 UNIT/ML VIAL SQ SCH ×2 (08:03→15:12)
[2016-12-16] MEDS: valACYclovir 500 MG TABLET PO SCH (08:03)
[2016-12-16] MEDS: Thiamine (B-1) 100 MG TABLET PO SCH (08:03)
[2016-12-16] MEDS: Gabapentin 400 MG CAPSULE PO SCH ×2 (08:03→15:11)
[2016-12-16] MEDS: FLUoxetine 20 MG CAPSULE PO SCH (08:03)
[2016-12-16] MEDS: ARIPiprazole 5 MG TABLET PO SCH (08:03)
[2016-12-16] MEDS: diazePAM 5 MG TABLET PO SCH (08:03)
[2016-12-16] MEDS ORDERED: Magnesium Sulfate 2 GM in D5% in Water 100 ML IV ONE (08:09)
--- NOTE | 2016-12-16 08:16 | Discharge Summary ---
Date of Encounter: 12/16/16 Time of Encounter: 08:16 - Discharge Diagnosis (1) SIRS (systemic inflammatory response syndrome) Priority: Primary Status: Resolved (2) Pneumonia due to aerobic bacteria Priority: Primary Status: Acute (3) Abdominal pain Priority: Secondary Status: Chronic Qualifiers: Abdominal location: generalized Qualified Code(s): R10.84 - Generalized abdominal pain (4) Unsteady gait Priority: Secondary Status: Acute (5) Falls Priority: Secondary Status: Acute Qualifiers: Encounter type: subsequent encounter Qualified Code(s): W19.XXXD - Unspecified fall, subsequent encounter (6) Hepatitis C infection Priority: Secondary Status: Chronic Qualifiers: Viral hepatitis chronicity: chronic Hepatic coma status: without hepatic coma Qualified Code(s): B18.2 - Chronic viral hepatitis C (7) GERD (gastroesophageal reflux disease) Priority: Secondary Status: Chronic Qualifiers: Esophagitis presence: without esophagitis Qualified Code(s): K21.9 - Gastro -esophageal reflux disease without esophagitis (8) Chronic pain Priority: Secondary Status: Chronic Qualifiers: Chronic pain type: chronic pain syndrome Qualified Code(s): G89.4 - Chronic pain syndrome - Discharge Medications Prescriptions: OxyCODONE Immed Rel [Roxicodone 5 MG] 5 - 10 mg PO Q4HR PRN #10 tablet PRN Reason: Pain Acyclovir [Zovirax] 2 gm TP 5XD #1 cream..g. Docusate [Colace] 100 mg PO BID #60 capsule Home Medications: Diazepam [Valium] 5 mg PO BID 11/25/15 [History] Aripiprazole 5 mg PO DAILY 11/26/16 [History] FLUoxetine HCl [Prozac] 20 mg PO DAILY 11/26/16 [History] Gabapentin [Neurontin] 300 mg PO TID 11/26/16 [History] OxyCODONE Immed Rel [Roxicodone 5 MG] 10 mg PO Q6H PRN 11/26/16 [History] Lisinopril/Hydrochlorothiazide [Lisinopril-Hctz 20-25 mg Tab] 1 tab PO DAILY [History] Docusate [Colace] 100 mg PO BID #60 capsule 12/14/16 [Rx] Acyclovir [Zovirax] 2 gm TP 5XD #1 cream..g. 12/16/16 [Rx] Levofloxacin 750 mg PO Q24H #0 tablet 12/16/16 [Rx] Magnesium Oxide [Mag-Ox] 400 mg PO DAILY #0 tablet 12/16/16 [Rx] Omeprazole [PriLOSEC] 40 mg PO DAILY #0 12/16/16 [Rx] OxyCODONE Immed Rel [Roxicodone 5 MG] 5 - 10 mg PO Q4HR PRN #10 tablet 12/16/16 [Rx] Polyethylene Glycol 3350 [MiraLAX] 17 gm PO DAILY powd.pack 12/16/16 [Rx] Thiamine (B-1) [Vitamin B-1] 100 mg PO DAILY tablet 12/16/16 [Rx] Valacyclovir [Valtrex] 1,000 mg PO BID #0 tablet 12/16/16 [Rx] Allergies/Adverse Reactions: Allergies acetaminophen [From Tylenol] Adverse Reaction (Verified 12/13/16 08:23) See Comments liver disease/hepatitis Procedures/tests Complete & Pending: Procedures Performed prior 72 hours Category Date Time Status CT chest wo con [CT] Routine Cat Scan 12/13/16 16:30 Completed abdominal/pelvis CT without contrast [CT abd pelvis wo Cat Scan 12/13/16 11: 40 Completed iv oral only] [CT] Stat EV echocardiogram Stat Y 12/13/16 11:21 Completed - Notes to Outpatient Provider Vitamin B12 level pending. Date of admission: 12/12/16 22:18 Primary care physician: PCP NO Consults: 12/13/16 15:29 Consult to Surgery [CONS] Routine Consulting Provider: [facility] Reason for Consult: Diffused abd pain. Concern peritonitis. Bands. Call Completed: Yes 12/14/16 11:38 Consult to Occupational Therapy [CONS] Routine Comment: Evaluate, develop and implement POC Consult to Physical Therapy [CONS] Routine Comment: pt need cane?Evaluate, develop and implement POC 12/14/16 13:14 Consult to Physical Therapy [CONS] Stat Comment: pt need cane?Evaluate, develop and implement POC 12/14/16 13:15 Consult to Occupational Therapy [CONS] Stat Comment: Evaluate, develop and implement POC 12/14/16 14:26 Consult to Accounting Consultant [CONS] Routine Reason for SW Consult: need swing bed placement Discharging clinician: Sharath Lugo Anticipated date of discharge: 12/16/16 - Patient Status Disposition: Transfer Hospital Swing Bed Condition: Fair Functional capacity at discharge: independent ambulation Overall status at discharge: patient is progressing back to baseline - Discharge Instructions Instructions: Chest Pain (DC), Diverticulitis (DC), Cirrhosis (DC), Cirrhosis ( GEN), Abuse of Alcohol (DC), Abuse of Alcohol (GEN), Chronic Hypertension (DC), Ascites (DC), Ascites (GEN), Viral Hepatitis C, All Around Patternmaker (GEN) Follow Up With: Jamal Renee MD [Partnered Physician] - 12/25/16 10:10 am NO,PCP [Primary Care Provider] - Additional Instructions: If you begin to have bloody bowel movements, intractable N/V, fevers. Please, be evaluated in the ED. Please arrange follow up with GI for persistent abdominal pain. - Diet and Activity Activity: increase activity as tolerated Diet: advance to your usual diet Hospital course: Mr. Brown is a 51 year old male with history of chronic hepatitis C (active with high viral load) presented to ED with mental status change and abdominal pain. Pt was found at home and was confused and less responsive. He was brought to the ED and evaluated. He was subsequently admitted for further evaluation and treatment. Mr. Brown was placed in observation on Zympi. He had significant abd pain on admission and he had urgent CT which was negative for acute pathology or fluid. He continued to have pain and had surgical eval which supported nonsurgical issue as cause. He continued to require some IV pain medication. He was restarted on his home oral dose of Oxy IR. He continued to have some abdominal pain and was constipated as well. CT of chest revealed bilateral pneumonia. He was placed on IV Levaquin with improvement. He remained afebrile and BP was good. No leukocytosis. He was evaluated by PT/OT due to recurrent falls and he was recommended admission to swing bed for rehab. Thiamine was started due to hx of ETOH use (last drink about 1 year ago). He developed herpes labialis as well (recurrent) and PO Valtrex was given. He continued to have abdominal pain but we discussed that it may be his hepatitis since he has a high viral load. On 12/16/16 he was feeling OK. He was felt medically stable for discharge at that time. - Time Spent with Patient Total time spent providing and/or coordinating discharge services: 44min - Constitutional Vitals: Temp Pulse Resp BP Pulse Ox 98.2 F 88 18 135/96 95 12/16/16 07:00 12/16/16 07:00 12/16/16 07:00 12/16/16 07:00 12/16/16 07:00 General appearance: Present: A&O X 3, pleasant, answers questions appropriately - Head Head exam: Present: normocephalic - Eye Eye exam: Present: conjuntiva pink - ENT ENT exam: Present: mucous membranes moist Additional comments: Herpes labialis noted - Respiratory Respiratory exam: Present: CTAB. Absent: wheezes - Cardiovascular Cardiovascular exam: Present: RRR. Absent: tachycardia - GI/Abdominal GI/Abdominal exam: Present: soft, tenderness Additional comments: Diffuse tenderness about the same. No rebound or rigidity. - Extremities Exam Extremities exam: Present: warm. Absent: pedal edema - Neurological Exam Neurological exam: Present: alert, oriented X3 - Skin Skin exam: Present: warm. Absent: rash - VTE Documentation of Mechanical Device: Intermittent pneumatic compression device
[2016-12-16] MEDS ORDERED: Magnesium Oxide 400 MG TABLET PO SCH (09:00)
[2016-12-16] MEDS: levoFLOXacin 750 MG TABLET PO SCH (15:11)
== END 2016-12-16 15:55 | disposition other institution (70) | DRG 178 ==
LOC: 2NENU 22:18
PROVIDERS: ADMIT Family Medicine; ATTEND Internal Medicine

== ENCOUNTER 2018-01-07 11:02 | Observation (INO) ==
[2018-01-07 11:50] LABS: Basophils % 0.3 %; Eosinophils # 0.1 K/mcL (0.0-0.6); Eosinophils % 2.5 %; Hematocrit 44.3 % (37.5-50.1); Hemoglobin 14.7 g/dL (12.9-16.9); Immature Granulocytes % 0.3 % (0-4); Lymphocytes # 1.6 K/mcL (0.6-4.6); Lymphocytes % 39.7 %; Mean Corpuscular HGB Conc 33.2 g/dL (31.6-35.5); Mean Corpuscular Hemoglobin 29.3 pg (28.0-33.3); Mean Corpuscular Volume 88.4 fL (83.0-100.0); Mean Platelet Volume 9.8 fL (9.4-12.4); Monocytes # 0.4 K/mcL (0.0-1.3); Monocytes % 8.9 %; Neutrophils # 1.9 K/mcL (1.6-8.9); Nucleated Red Blood Cells 0.5 /100 WBC (0); Platelet Count 243 K/mcL (140-400); Red Blood Count 5.01 M/mcL (4.19-5.50); Red Cell Distribution Width 14.8 % (11.5-14.5); Segmented Neutrophils % 48.3 %
[2018-01-07 11:57] LABS: INR 1.2; Prothrombin Time 13.2 Seconds (9.4-12.1)
[2018-01-07 12:00] LABS: Activated Partial Thrombo Time 36.2 Seconds (26.0-36.0)
[2018-01-07 12:10] LABS: BUN/Creatinine Ratio 4 (6-26); Blood Urea Nitrogen 4 mg/dL (6-20); Calcium 9.4 mg/dL (8.6-10.3); Carbon Dioxide 28 mEq/L (23-29); Chloride 102 mEq/L (98-107); Glucose 93 mg/dL (70-105); Osmolality,Calculated 283 (280-300); Potassium 2.9 mEq/L (3.5-5.1); Sodium 138 mEq/L (136-145); eGFR For African Americans > 60 (> 60); eGFR For Non-African Americans > 60 (> 60)
[2018-01-07] MEDS: Nitroglycerin 0.4 MG TAB.SUBL SL ONE ×3 (12:22→12:32)
--- NOTE | 2018-01-07 13:21 | Emergency Department Note ---
Disposition Clinical Impression: Hypertensive urgency, Chest pain, rule out acute myocardial infarction Disposition: Admitted As Inpatient Condition: Undetermined Time of Disposition: 13:29 Chest Pain HPI - General Chief Complaint: ED Chest Pain Stated Complaint: HTN From Endocrinology Source: patient Mode of arrival: ambulatory Limitations: no limitations Vital Signs Reviewed: Yes Nursing Notes Reviewed: Yes - History of Present Illness HPI Narrative: 52-year-old male presents emergency Department with concerns of chest pressure and shortness of breath and lightheadedness with exertion. Patient was seen in the office by Dr. Elizalde for further evaluation of bleeding gastric ulcer when he was noticed to have significantly elevated blood pressures in the setting of chest pain. Patient states his pain is worsened over the past 3 days and is described as a pressure in the center of his chest that does not radiate, worse with exertion. Patient BP was 189/129 in the emergency department during initial evaluation this improved to 138/100 after nitroglycerin. Patient pain also improved with nitroglycerin administration.. Patient denies a history of cardiac disease. He denies a history of previous stress test. He does state that his chest pain also becomes worse with laying flat and improves with sitting up however he states that the pain is much different than his previous reflux. Patient reports associated diaphoresis, lightheadedness and shortness of breath with the chest pain during exertion. Severity scale (1-10): 6 - Related Data Home Medications Medication Instructions Recorded Confirmed diazePAM [Valium] 5 mg PO BID PRN 11/25/15 01/07/18 FLUoxetine HCl [Prozac] 20 mg PO DAILY 11/26/16 01/07/18 ARIPiprazole [Abilify] 5 mg PO DAILY 12/05/17 01/07/18 Doxazosin Mesylate [Cardura] 2 mg PO DAILY 12/05/17 01/07/18 Lisinopril [Zestril] 40 mg PO BID 12/05/17 01/07/18 Omeprazole [PriLOSEC] 40 mg PO DAILY 12/05/17 01/07/18 Pregabalin [Lyrica] 200 mg PO BID 12/05/17 01/07/18 hydroCHLOROthiazide 25 mg PO DAILY 12/05/17 01/07/18 [Hydrochlorothiazide] Metoprolol Succinate [Toprol Xl] 50 mg PO DAILY 01/07/18 01/07/18 cloNIDine HCl [CloNIDine HCl] 0.1 mg PO HS 01/07/18 01/07/18 hydroCHLOROthiazide 25 mg PO DAILY 01/07/18 01/07/18 [Hydrochlorothiazide] Previous Rx's Medication Instructions Recorded Folic Acid 1 mg PO DAILY #30 tablet 12/26/16 Sucralfate [Carafate] 1 gm PO QIDAC #60 tablet 11/08/17 Metformin HCl [Glucophage Xr] 500 mg PO DAILY #30 tab.er.24h 12/05/17 Allergies Allergy/AdvReac Type Severity Reaction Status Date / Time acetaminophen [From Tylenol] AdvReac See Verified 01/07/18 11:09 Comments All systems ED: reviewed and negative except as stated. Review of Systems: As Per HPI Constitutional: Reports: weakness. Denies: fever, chills Cardiovascular: Reports: chest pain Respiratory: Reports: dyspnea Gastrointestinal: Denies: abdominal pain, nausea, vomiting, diarrhea Chest Pain PMH - Past Medical History Medical history: Reports: cirrhosis, diabetes, GERD, hepatitis, hypertension, liver disease, other Surgical history: Reports: non-contributory Psychiatric history: Reports: anxiety, depression - Social History Smoking Status: Former smoker Alcohol use: Reports: none Drug use: Reports: none Physical Exam General: Alert and in no acute distress Skin: Warm, dry, intact Head: Normocephalic and atraumatic Neck: Supple, trachea midline and no tenderness Cardiovascular: RRR, no murmur, normal perfusion Respiratory: CTAB, no wheezing, cough, or respiratory distress Musculoskeletal: Normal strength, no tenderness, swelling or deformity GI: Soft, nontender, nondistended. Bowel sounds present Neuro: A&O to person, place, time and situation. No focal deficits noted on exam Psychiatric: cooperative and appropriate mood and affect. - General Limitations: no limitations General appearance: alert, in no apparent distress Course Vital Signs Temperature 97.4 F L 01/07/18 11:05 Pulse Rate 98 01/07/18 11:05 Respiratory Rate 18 01/07/18 11:05 Blood Pressure 186/129 01/07/18 11:05 O2 Sat by Pulse Oximetry 99 01/07/18 11:05 Temperature 98.9 F 01/07/18 19:18 Pulse Rate 87 01/07/18 19:18 Respiratory Rate 16 01/07/18 19:18 Blood Pressure 141/81 01/07/18 19:18 O2 Sat by Pulse Oximetry 92 01/07/18 19:18 Oxygen Delivery Oxygen Delivery Room Air Chest Pain - MDM Narrative Medical decision making narrative: Patient had significant elevated blood pressure during initial evaluation with associated chest pain. Patient pain and blood pressure improved after administration of nitroglycerin. Patient will be admitted to the hospital for further evaluation of his chest pain and dyspnea with exertion to rule out ACS. - Medical Records Medical records reviewed: Yes I reviewed the patient's medical records. - Lab Data Lab results reviewed: Yes I reviewed the patient's lab results. Result diagrams: 01/07/18 11:35 01/07/18 11:35 Lab Results 01/07/18 01/07/18 01/07/18 Range/Units 11:35 11:35 11:35 WBC 3.9 L (4.3-11.1) K/mcL RBC 5.01 (4.19-5.50) M/mcL Hgb 14.7 (12.9-16.9) g/dL Hct 44.3 (37.5-50.1) % MCV 88.4 (83.0-100.0) fL MCH 29.3 (28.0-33.3) pg MCHC 33.2 (31.6-35.5) g/dL RDW 14.8 H (11.5-14.5) % Plt Count 243 (140-400) K/mcL MPV 9.8 (9.4-12.4) fL Immature Gran % 0.3 (0-4) % Seg Neutrophils % 48.3 % Lymphocytes % 39.7 % Monocytes % 8.9 % Eosinophils % 2.5 % Basophils % 0.3 % Neutrophils # 1.9 (1.6-8.9) K/mcL Lymphocytes # 1.6 (0.6-4.6) K/mcL Monocytes # 0.4 (0.0-1.3) K/mcL Eosinophils # 0.1 (0.0-0.6) K/mcL Basophils # 0.0 (0.0-0.2) K/mcL Nucleated RBCs/100 WBC 0.5 H (0) /100 WBC PT 13.2 H (9.4-12.1) Seconds INR 1.2 APTT 36.2 H (26.0-36.0) Seconds Sodium (136-145) mEq/L Potassium (3.5-5.1) mEq/L Chloride (98-107) mEq/L Carbon Dioxide (23-29) mEq/L BUN (6-20) mg/dL Creatinine (0.70-1.30) mg/dL Est GFR ( Amer) (> 60) Est GFR (Non-Af Amer) (> 60) BUN/Creatinine Ratio (6-26) Glucose (70-105) mg/dL Est Mean Plasma Glucose mg/dl Hemoglobin A1c ( - 5.6) % Calculated Osmolality (280-300) Calcium (8.6-10.3) mg/dL Troponin I (< 0.04) ng/mL Triglycerides (< 150) mg/dL Cholesterol (< 200) mg/dL LDL Cholesterol, Calc (0-99) mg/dL VLDL Cholesterol, Calc (< 31) mg/dL HDL Cholesterol (40-59) mg/dL Cholesterol/HDL Ratio (0-4.9) Lipase 15 (11-82) Units/L 01/07/18 01/07/18 01/07/18 Range/Units 11:35 11:35 11:35 WBC (4.3-11.1) K/mcL RBC (4.19-5.50) M/mcL Hgb (12.9-16.9) g/dL Hct (37.5-50.1) % MCV (83.0-100.0) fL MCH (28.0-33.3) pg MCHC (31.6-35.5) g/dL RDW (11.5-14.5) % Plt Count (140-400) K/mcL MPV (9.4-12.4) fL Immature Gran % (0-4) % Seg Neutrophils % % Lymphocytes % % Monocytes % % Eosinophils % % Basophils % % Neutrophils # (1.6-8.9) K/mcL Lymphocytes # (0.6-4.6) K/mcL Monocytes # (0.0-1.3) K/mcL Eosinophils # (0.0-0.6) K/mcL Basophils # (0.0-0.2) K/mcL Nucleated RBCs/100 WBC (0) /100 WBC PT (9.4-12.1) Seconds INR APTT (26.0-36.0) Seconds Sodium 138 (136-145) mEq/L Potassium 2.9 L (3.5-5.1) mEq/L Chloride 102 (98-107) mEq/L Carbon Dioxide 28 (23-29) mEq/L BUN 4 L (6-20) mg/dL Creatinine 0.90 (0.70-1.30) mg/dL Est GFR ( Amer) > 60 (> 60) Est GFR (Non-Af Amer) > 60 (> 60) BUN/Creatinine Ratio 4 L (6-26) Glucose 93 (70-105) mg/dL Est Mean Plasma Glucose 134 mg/dl Hemoglobin A1c 6.3 H ( - 5.6) % Calculated Osmolality 283 (280-300) Calcium 9.4 (8.6-10.3) mg/dL Troponin I < 0.03 (< 0.04) ng/mL Triglycerides 107 (< 150) mg/dL Cholesterol 160 (< 200) mg/dL LDL Cholesterol, Calc 119 H (0-99) mg/dL VLDL Cholesterol, Calc 21 (< 31) mg/dL HDL Cholesterol 20 L (40-59) mg/dL Cholesterol/HDL Ratio 8.0 H (0-4.9) Lipase (11-82) Units/L /20/18 Range/Units 17:24 WBC (4.3-11.1) K/mcL RBC (4.19-5.50) M/mcL Hgb (12.9-16.9) g/dL Hct (37.5-50.1) % MCV (83.0-100.0) fL MCH (28.0-33.3) pg MCHC (31.6-35.5) g/dL RDW (11.5-14.5) % Plt Count (140-400) K/mcL MPV (9.4-12.4) fL Immature Gran % (0-4) % Seg Neutrophils % % Lymphocytes % % Monocytes % % Eosinophils % % Basophils % % Neutrophils # (1.6-8.9) K/mcL Lymphocytes # (0.6-4.6) K/mcL Monocytes # (0.0-1.3) K/mcL Eosinophils # (0.0-0.6) K/mcL Basophils # (0.0-0.2) K/mcL Nucleated RBCs/100 WBC (0) /100 WBC PT (9.4-12.1) Seconds INR APTT (26.0-36.0) Seconds Sodium (136-145) mEq/L Potassium (3.5-5.1) mEq/L Chloride (98-107) mEq/L Carbon Dioxide (23-29) mEq/L BUN (6-20) mg/dL Creatinine (0.70-1.30) mg/dL Est GFR ( Amer) (> 60) Est GFR (Non-Af Amer) (> 60) BUN/Creatinine Ratio (6-26) Glucose (70-105) mg/dL Est Mean Plasma Glucose mg/dl Hemoglobin A1c ( - 5.6) % Calculated Osmolality (280-300) Calcium (8.6-10.3) mg/dL Troponin I < 0.03 (< 0.04) ng/mL Triglycerides (< 150) mg/dL Cholesterol (< 200) mg/dL LDL Cholesterol, Calc (0-99) mg/dL VLDL Cholesterol, Calc (< 31) mg/dL HDL Cholesterol (40-59) mg/dL Cholesterol/HDL Ratio (0-4.9) Lipase (11-82) Units/L - Radiology Data Radiology results reviewed: Yes I reviewed the patient's radiology results. - EKG Data EKG attestation: Yes I reviewed and interpreted this EKG. EKG results narrative: Normal sinus rhythm with rate of 72 without evidence of STEMI. Heart Score - Score History: Moderately Suspicious EKG: Normal Age: 45-65 Risk Factors: Equal/Greater than 3 risk factor or history of atherosclerotic disease Troponin: Less than normal limit HEART Score Total: 4
[2018-01-07] MEDS ORDERED: Naloxone 0.4 MG/ML INJ IVP PRN (13:32)
[2018-01-07] MEDS ORDERED: Acetaminophen 325 MG TABLET PO PRN (13:32)
[2018-01-07] MEDS ORDERED: Dextrose Gel 15 GM/37.5 ML TUBE PO PRN ×2 (13:35)
[2018-01-07] MEDS ORDERED: *HR* Dextrose 50 % in Water (Syg) 50 ML SYRINGE IVP PRN (13:35)
[2018-01-07] MEDS ORDERED: D5% in Water 1,000 ML IVC PRN (13:35)
[2018-01-07] MEDS ORDERED: Potassium Chloride 20 MEQ, Lidocaine 1% 2 ML in D5% in Water 250 ML IVPB ONE (13:36)
--- NOTE | 2018-01-07 13:45 | Internal Med History&Physical ---
Date of Encounter: 01/07/18 Time of Encounter: 13:38 Assessment and Plan (1) Chest pain Current visit: No Status: Resolved Multiple risk factors including hypertension, obesity, diabetes mellitus, and family history. We will admit the patient for ACS rule out. ASA 324 mg to be given. Trend cardiac enzymes. Check hemoglobin A1c and lipid panel. Place patient on telemetry. Stress test in the morning. Nothing by mouth after midnight Qualifiers: Chest pain type: unspecified Qualified Code(s): R07.9 - Chest pain, unspecified (2) Hypokalemia Current visit: No Status: Resolved We will give oral supplements as well as IV potassium. We will check in the morning. (3) Hypertensive urgency Current visit: No Status: Resolved Plan is as below (4) Hypertension Current visit: No Status: Chronic Blood pressure is elevated on admission. Improving after nitroglycerin. We will add hydralazine IV when necessary. Resume home medications.. Qualifiers: Hypertension type: essential hypertension Qualified Code(s): I10 - Essential (primary) hypertension (5) GERD (gastroesophageal reflux disease) Current visit: No Status: Chronic Continue PPI Qualifiers: Esophagitis presence: esophagitis presence not specified Qualified Code(s) : K21.9 - Gastro-esophageal reflux disease without esophagitis (6) Diabetes mellitus Current visit: Yes Status: Acute Put the patient on insulin sliding scale. Diabetic diet. Continue Accu-Cheks. Qualifiers: Diabetes mellitus type: type 2 Diabetes mellitus complication status: without complication Diabetes mellitus half-way insulin use: without half-way use Qualified Code(s): E11.9 - Type 2 diabetes mellitus without complications (7) DVT prophylaxis Current visit: Yes Status: Acute Hemoglobin is stable and platelets are stable. We will use heparin subcutaneous Internal Medicine - H&P: HPI Chief complaint: chest pain Admitted From: Home Plans for Post Hospital Care: Home History of present illness: Mr. Brown is a 52 year old male with history of HTN, DM, HLD, alcoholic liver disease with esophageal varices and esophageal ulcer, GERD, BPH, presented with mid chest pain/pressure nonradiating for the last 3 days or so. Worse with laying down. Has associated diaphoresis. EKG with no acute ST or T wave changes. First set of trops negative. Last echo back in November 2016 with EF > 70% and mild left ventricular diastolic dysfunction. BP was significantly elevated on presentation with BP of 186/129 and this improved with nitroglycerin. Nitropaste was applied as well. Chest pain also improved with that. Lab work up in ED showed hypokalemia of 2.9. CXR unremarkable. Never hypoxic. Was being evaluated today in GI office for gastric ulcer and was sent here from there due to elevated BP and complaints of chest pain. Also having shortness of breath and lightheadedness with exertion mainly. Denies headache, fever, chills, nausea, vomiting, abdominal pain, urinary symptoms, or neurological symptoms Past Med Surg Social Fam HX - Past Medical History Medical history: cirrhosis, diabetes, GERD, hepatitis, hypertension, liver disease, other Psychiatric history: anxiety, depression - Past Surgical History Surgical History: non-contributory - Social History Smoking Status: Former smoker Smokeless Tobacco Status: Yes Alcohol use: none Drug use: none - Family History Father Hx Family Cardiac Disorders: Yes Hx Family Endocrine Disorder: Yes Mother Hx Family Cardiac Disorders: Yes Hx Family Endocrine Disorder: Yes Internal Medicine - H&P: Meds diazePAM [Valium] 5 mg PO BID PRN 11/25/15 [History] FLUoxetine HCl [Prozac] 20 mg PO DAILY 11/26/16 [History] Folic Acid 1 mg PO DAILY #30 tablet 12/26/16 [Rx] Sucralfate [Carafate] 1 gm PO QIDAC #60 tablet 11/08/17 [Rx] ARIPiprazole [Abilify] 5 mg PO DAILY 12/05/17 [History] Doxazosin Mesylate [Cardura] 2 mg PO DAILY 12/05/17 [History] Lisinopril [Zestril] 40 mg PO DAILY 12/05/17 [History] Metformin HCl [Glucophage Xr] 500 mg PO DAILY #30 tab.er.24h 12/05/17 [Rx] Omeprazole [PriLOSEC] 40 mg PO DAILY 12/05/17 [History] Pregabalin [Lyrica] 200 mg PO BID 12/05/17 [History] hydroCHLOROthiazide [Hydrochlorothiazide] 12.5 mg PO DAILY 12/05/17 [History] Metoprolol Succinate [Toprol Xl] 50 mg PO DAILY 01/07/18 [History] cloNIDine HCl [CloNIDine HCl] 0.1 mg PO HS 01/07/18 [History] hydroCHLOROthiazide [Hydrochlorothiazide] 25 mg PO DAILY 01/07/18 [History] 3 Allergy/AdvReac Type Severity Reaction Status Date / Time acetaminophen [From Tylenol] AdvReac See Verified 01/07/18 11:09 Comments All Systems PM: A 10-system review of systems was performed and is negative for pertinent findings except as documented above in the HPI. Review of systems: All systems reviewed are negative except for what is mentioned above - Constitutional Vitals: Temp Pulse Resp BP Pulse Ox 97.4 F L 98 18 186/129 99 01/07/18 11:05 01/07/18 11:05 01/07/18 11:05 01/07/18 11:05 01/07/18 11:05 Exam: GEN: NAD HEENT: AT, NC, No cyanosis, oral mucosa is moist, No JVD Lymphatics: No lymphadenoapthy Eyes: Extrocular muscles intact, anicteric CVS:RRR. S1, S2, No m/r/g RESP: CTAB ABD: Soft, NT, ND, +BS EXT: No edema, No rashes, 2+ DP NEURO: Nonfocal, CN II-XII intact, No focal motor or sensory deficits Psych: Cooperative, Not anxious or depressed Internal Med - H&P Results - Labs CBC & Chem 7: 01/07/18 11:35 01/07/18 11:35 Labs: Short CBC 01/07/18 Range/Units 11:35 WBC 3.9 L (4.3-11.1) K/mcL Hgb 14.7 (12.9-16.9) g/dL Hct 44.3 (37.5-50.1) % Plt Count 243 (140-400) K/mcL Neutrophils # 1.9 (1.6-8.9) K/mcL BMP 01/07/18 11:35 Sodium 138 Potassium 2.9 L Chloride 102 Carbon Dioxide 28 BUN 4 L Creatinine 0.90 Glucose 93 Calcium 9.4 Cardiac Enzymes 01/07/18 Range/Units 11:35 Troponin I < 0.03 (< 0.04) ng/mL - Impressions ITS Impressions Chest X-Ray 01/07/18 11:23 IMPRESSION: 1. No active pulmonary disease. D/ / Chi Vitale MD / Chi Vitale MD Interpreting Provider: Chi Vitale MD
[2018-01-07 13:52] LABS: Cholesterol 160 mg/dL (< 200); HDL Cholesterol 20 mg/dL (40-59); LDL Cholesterol,Calculated 119 mg/dL (0-99); Triglycerides 107 mg/dL (< 150)
[2018-01-07 13:58] LABS: Hemoglobin A1C 6.3 %
[2018-01-07] MEDS ORDERED: Aspirin 81 MG TAB.CHEW PO ONE (14:00)
[2018-01-07] MEDS ORDERED: Nitroglycerin 0.4 MG TAB.SUBL SL PRN (14:00)
[2018-01-07] MEDS ORDERED: *HR* FentaNYL (PF) 100 MCG/2 ML VIAL IVP ONE (14:01)
[2018-01-07] MEDS ORDERED: diazePAM 5 MG TABLET PO PRN (14:05)
[2018-01-07] MEDS: Nitroglycerin 0.2 MG PATCH.TD24 TD SCH (15:04)
[2018-01-07] MEDS: Sucralfate 1 GM TABLET PO SCH ×2 (17:04→20:56)
[2018-01-07] MEDS: Insulin LISPRO 300 UNITS/3 ML VIAL SQ SCH (17:05)
[2018-01-07] MEDS: traMADol 50 MG TABLET PO PRN (18:47)
[2018-01-07] MEDS ORDERED: Ketorolac 30 MG/ML VIAL IVP ONE (20:47)
[2018-01-07] MEDS: Pregabalin 50 MG CAPSULE PO SCH (20:56)
[2018-01-07] MEDS: Lisinopril 20 MG TABLET PO SCH (20:56)
[2018-01-07] MEDS ORDERED: cloNIDine HCl 0.1 MG TABLET PO SCH (21:00)
[2018-01-08 00:28] LABS: Basophils % 0.4 %; Eosinophils # 0.2 K/mcL (0.0-0.6); Eosinophils % 4.5 %; Immature Granulocytes % 0.2 % (0-4); Lymphocytes # 2.4 K/mcL (0.6-4.6); Lymphocytes % 45.5 %; Mean Corpuscular HGB Conc 32.8 g/dL (31.6-35.5); Mean Corpuscular Hemoglobin 29.5 pg (28.0-33.3); Mean Corpuscular Volume 89.9 fL (83.0-100.0); Mean Platelet Volume 9.9 fL (9.4-12.4); Monocytes # 0.5 K/mcL (0.0-1.3); Monocytes % 9.5 %; Neutrophils # 2.1 K/mcL (1.6-8.9); Platelet Count 240 K/mcL (140-400); Red Blood Count 4.34 M/mcL (4.19-5.50); Red Cell Distribution Width 15.1 % (11.5-14.5); Segmented Neutrophils % 39.9 %
[2018-01-08 00:37] LABS: Hemoglobin 12.8 g/dL (12.9-16.9)
[2018-01-08 00:45] LABS: BUN/Creatinine Ratio 7 (6-26); Blood Urea Nitrogen 10 mg/dL (6-20); Calcium 8.9 mg/dL (8.6-10.3); Carbon Dioxide 29 mEq/L (23-29); Chloride 105 mEq/L (98-107); Glucose 138 mg/dL (70-105); Magnesium 2.2 mg/dL (1.6-2.6); Osmolality,Calculated 287 (280-300); Potassium 3.6 mEq/L (3.5-5.1); Sodium 138 mEq/L (136-145); eGFR For African Americans > 60 (> 60); eGFR For Non-African Americans 54 (> 60)
[2018-01-08] MEDS: Insulin LISPRO 300 UNITS/3 ML VIAL SQ SCH ×3 (01:00→16:28)
[2018-01-08] MEDS ORDERED: 0.9 % Sodium Chloride 250 ML IV ONE (04:17)
[2018-01-08] MEDS ORDERED: 0.9 % Sodium Chloride 250 ML ONE (04:30)
[2018-01-08] MEDS ORDERED: Regadenoson 0.4 MG/5 ML SYRINGE IVP ONE ×2 (06:06→12:31)
[2018-01-08] MEDS: Sucralfate 1 GM TABLET PO SCH ×4 (08:04→16:44)
[2018-01-08] MEDS: traMADol 50 MG TABLET PO PRN (08:04)
[2018-01-08] MEDS ORDERED: hydroCHLOROthiazide 25 MG TABLET PO SCH (09:00)
[2018-01-08] MEDS ORDERED: Folic Acid 1 MG TABLET PO SCH (09:00)
[2018-01-08] MEDS ORDERED: Metoprolol XL (24 HR) Succ 50 MG TAB.ER.24H PO SCH (09:00)
[2018-01-08] MEDS ORDERED: ARIPiprazole 5 MG TABLET PO SCH (09:00)
[2018-01-08] MEDS ORDERED: FLUoxetine 20 MG CAPSULE PO SCH (09:00)
[2018-01-08 14:57] VITALS: BP 116/80
[2018-01-08] MEDS: Lisinopril 20 MG TABLET PO SCH (16:26)
[2018-01-08] MEDS: Pregabalin 50 MG CAPSULE PO SCH (16:26)
[2018-01-08] MEDS: Nitroglycerin 0.2 MG PATCH.TD24 TD SCH (16:28)
--- NOTE | 2018-01-08 17:09 | Discharge Summary ---
Orders not resulted at time of discharge: Pending orders 01/07/18 20:50 ECG 12 lead ECG [ECG] Stat Date of Encounter: 01/08/18 Time of Encounter: 17:02 - Discharge Diagnosis (1) Chest pain, rule out acute myocardial infarction Priority: Primary Status: Acute Comments: (Faxed orders including hypertension, obesity, diabetes mellitus and family history. He had a stress test today that was negative for ischemia or infarct. Cardiac enzymes were negative. Lipid panel was obtained with LDL 119, HDL of 20 and total cholesterol 160. (2) Diabetes mellitus Priority: Secondary Status: Acute Comments: Diabetic diet and resume home medication regime Qualifiers: Diabetes mellitus type: type 2 Diabetes mellitus complication status: without complication Diabetes mellitus bed bug exterminator insulin use: without bed bug exterminator use Qualified Code(s): E11.9 - Type 2 diabetes mellitus without complications (3) Hypertensive urgency Priority: Primary Status: Acute Comments: Patient's blood pressure controlled during this hospitalization. He felt a little lightheaded while lying in bed and checked orthostatic blood pressures and he is not orthostatic His pressure was 186/129 and 135/96 in the emergency room. His blood pressure did become hypotensive when he received nitroglycerin. Instructed patient to keep a blood pressure log and when systolic blood pressure greater than 160 to take his second dose of clonidine 0.1 mg by mouth (4) Alcoholic liver disease Priority: Secondary Status: Chronic (5) Chronic pain Priority: Secondary Status: Chronic Qualifiers: Chronic pain type: chronic pain syndrome Qualified Code(s): G89.4 - Chronic pain syndrome (6) GERD (gastroesophageal reflux disease) Priority: Secondary Status: Chronic Comments: Continue PPI and follow up with cytology manager as scheduled Qualifiers: Esophagitis presence: esophagitis presence not specified Qualified Code(s) : K21.9 - Gastro-esophageal reflux disease without esophagitis (7) Anemia Priority: Secondary Status: Acute Comments: Hemoglobin went from 14.7 on admission to 12.8 today likely delusional as he had multiple fluid boluses overnight with low pressure from dropping with nitroglycerin, to follow up with GI and his PCP. No signs of bleeding during this stay Qualifiers: Anemia type: folate deficiency Folate deficiency anemia type: unspecified folate deficiency Qualified Code(s): D52.9 - Folate deficiency anemia, unspecified Hospital course: Mr. Brown is a 52 year old male with history of hypertension, diabetes mellitus, hyperlipidemia, alcoholic liver disease with esophageal varices and esophageal ulcer, GERD, BPH who presented with met mid chest pain and pressure nonradiating for last 3 days or so. Said the pain is worse with laying down and he had associated sweats. EKG was no acute ST or T-wave changes. Troponins were negative. Last echo in November 2016 with EF of greater than 70% and mild left ventricular diastolic dysfunction. Blood pressure was significantly elevated on presentation with blood pressure of 186/129. The patient was sent over to the ED from the cytology manager office when his blood pressure was found to be elevated there. Nitroglycerin paste was applied. His chest pain improved but he did drop his blood pressure. He was hypokalemic in the ER at 2.9 and this was replaced. Chest x-ray was unremarkable. He was never hypoxic and has been on room air through his whole stay. He also has been having some shortness of breath and lightheadedness with exertion. He has no neurological symptoms. Discussed keeping a blood pressure log and he states at times his blood pressure skyrockets. He will follow-up with cardiology as an outpatient. He will also follow-up with his primary care doctor and will re-schedule his appointment with gastroenterology. I provided a prescription for clonidine 0.1 mg by mouth twice a day but he is only to take the second dose of his blood pressure is elevated in the morning. He will continue his at bedtime dose. Explained to the patient he he and his family verbalized understanding. They also verbalized understanding of keeping a blood pressure log which they will maintain intake to the doctor's office listener. Discharge discussed with: patient, family, nurse - Time Spent with Patient Total time spent providing and/or coordinating discharge services: Less than 30 minutes - Discharge Medications Prescriptions: cloNIDine HCl [CloNIDine HCl] 0.1 mg PO BID #60 tablet Home Medications: diazePAM [Valium] 5 mg PO BID PRN 11/25/15 [History] FLUoxetine HCl [Prozac] 20 mg PO DAILY 11/26/16 [History] Folic Acid 1 mg PO DAILY #30 tablet 12/26/16 [Rx] Sucralfate [Carafate] 1 gm PO QIDAC #60 tablet 11/08/17 [Rx] ARIPiprazole [Abilify] 5 mg PO DAILY 12/05/17 [History] Doxazosin Mesylate [Cardura] 2 mg PO DAILY 12/05/17 [History] Lisinopril [Zestril] 40 mg PO BID 12/05/17 [History] Metformin HCl [Glucophage Xr] 500 mg PO DAILY #30 tab.er.24h 12/05/17 [Rx] Omeprazole [PriLOSEC] 40 mg PO DAILY 12/05/17 [History] Pregabalin [Lyrica] 200 mg PO BID 12/05/17 [History] hydroCHLOROthiazide [Hydrochlorothiazide] 25 mg PO DAILY 12/05/17 [History] Metoprolol Succinate [Toprol Xl] 50 mg PO DAILY 01/07/18 [History] hydroCHLOROthiazide [Hydrochlorothiazide] 25 mg PO DAILY 01/07/18 [History] cloNIDine HCl [CloNIDine HCl] 0.1 mg PO BID #60 tablet 01/08/18 [Rx] Allergies/Adverse Reactions: 3 Allergy/AdvReac Type Severity Reaction Status Date / Time acetaminophen [From Tylenol] AdvReac See Verified 01/07/18 11:09 Comments Date of admission: 01/07/18 14:52 Primary care physician: Herman Horton DO Discharging clinician: Christine Pascual Anticipated date of discharge: 01/08/18 - Constitutional Vitals: Temp Pulse Resp BP Pulse Ox 97.5 F L 79 18 116/80 98 01/08/18 14:56 01/08/18 14:56 01/08/18 14:56 01/08/18 14:56 01/08/18 14:56 General appearance: Present: cooperative, A&O X 3, pleasant, answers questions appropriately - Head Head exam: Present: atraumatic, normocephalic - Eye Eye exam: Present: PERRL, conjuntiva pink, sclera anicteric Pupils: Present: PERRL - Neck Neck exam general surgery: Present: supple, trachea midline. Absent: lymphadenopathy - Respiratory Respiratory exam: Present: CTAB. Absent: accessory muscle use, rales, rhonchi, wheezes - Cardiovascular Cardiovascular exam: Present: RRR, +S1, +S2. Absent: diastolic murmur, gallop, rubs, systolic murmur - GI/Abdominal GI/Abdominal exam: Present: distended, firm, normal bowel sounds, no peritoneal signs. Absent: tenderness - Extremities Exam Extremities exam: Present: warm, radial pulses palpable and symmetrical. Absent : calf tenderness, cyanotic, pedal edema - Neurological Exam Neurological exam: Present: alert, CN II-XII intact, normal gait, oriented X3, no focal deficits. Absent: pronater drift, facial droop, speech deficit - Skin Skin exam: Present: dry, intact, warm - Patient Status Disposition: Home, Self-Care Condition: Undetermined Functional capacity at discharge: independent ambulation Overall status at discharge: patient is progressing back to baseline - Discharge Instructions Follow Up With: Herman Horton DO [Primary Care Provider] - - Diet and Activity Activity: resume usual activities as tolerated Diet: advance to your usual diet
--- NOTE | 2018-01-09 16:17 | Electrocardiograph Report ---
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
--- NOTE | 2018-01-09 20:25 | Electrocardiograph Report ---
[place] [id number] Test Date: 2018-01-07 Pat Name: Adolfo Brown Department: 102 Room: 3B39 Gender: M Accessibility Lift Technician: Prabhu : 1965 Requested By: Henry Peters Order Number: [id number] Reading MD: Lyubov Dong Measurements Intervals [place] Rate: 72 P: 21 MI: 170 QRS: -24 QRSD: 94 T: 29 QT: 389 QTc: 413 Interpretive Statements SINUS RHYTHM BORDERLINE LEFT AXIS DEVIATION [QRS AXIS < -20] MODERATE VOLTAGE CRITERIA FOR LVH, CONSIDER NORMAL VARIANT [MEETS CRITERIA IN ONE OF: R(aVL), S(V1), R(V5), R(V5/V6)+S(V1)] MINIMAL ST DEPRESSION [0.025+ mV ST DEPRESSION] Electronically Signed On 01-09-2018 20:23:57 EST by Lyubov Dong
== END 2018-01-08 17:45 | disposition home or self-care (01) ==
LOC: 3BNU 11:02 → EMEROO 11:02 → 3BNU 15:19
PROVIDERS: ADMIT Internal Medicine; ATTEND Registered Nurse

== ENCOUNTER 2021-12-28 11:37 | Observation (INO) ==
[2021-12-28 12:38] LABS: Bilirubin,Urine Negative (Negative); Blood,Urine Negative (Negative); Clarity,Urine Clear (Clear); Color,Urine Colorless (Yellow); Glucose,Urine (UA) >=1000 mg/dL (Normal); Ketones,Urine Trace mg/dL (Negative); Leukocyte Esterase,Urine Negative (Negative); Mucus,Urine Few per lpf (None-Few); Nitrite,Urine Negative (Negative); Protein,Urine Negative (Neg-Trace); RBC,Urine 0-3 per hpf (0-3); Specific Gravity,Urine 1.026 (1.010-1.025); Squamous Epithelial Cell,Urine Few per hpf (None-Few); Urobilinogen,Urine Normal (Normal); WBC,Urine 0-3 per hpf (0-3)
[2021-12-28 12:41] LABS: Basophils % 0.3 %; Hematocrit 43.8 % (37.5-50.1); Hemoglobin 15.8 g/dL (12.9-16.9); Immature Granulocytes % 0.3 % (0-4); Lymphocytes # 2.2 K/mcL (0.6-4.6); Lymphocytes % 34.9 %; Mean Corpuscular HGB Conc 36.1 g/dL (31.6-35.5); Mean Corpuscular Hemoglobin 33.1 pg (28.0-33.3); Mean Corpuscular Volume 91.8 fL (83.0-100.0); Mean Platelet Volume 10.1 fL (9.4-12.4); Monocytes # 0.4 K/mcL (0.0-1.3); Monocytes % 5.7 %; Neutrophils # 3.8 K/mcL (1.6-8.9); Platelet Count 337 K/mcL (140-400); Red Blood Count 4.77 M/mcL (4.19-5.50); Red Cell Distribution Width 13.1 % (11.5-14.5); Segmented Neutrophils % 58.8 %; White Blood Count 6.4 K/mcL (4.3-11.1)
[2021-12-28 12:59] LABS: Amphetamine Screen,Urine Negative ng/mL (Cutoff=1000); Barbiturate Screen,Urine Negative ng/mL (Cutoff=200); Benzodiazepines Screen,Urine Negative ng/mL (Cutoff=200); Cannabinoid Screen,Urine Negative ng/mL (Cutoff = 50); Cocaine Screen,Urine Negative ng/mL (Cutoff= 300); Opiate Screen,Urine Negative ng/mL (Cutoff=300); Phencyclidine Screen,Urine Negative ng/mL (Cutoff=25)
[2021-12-28 14:05] LABS: Acetaminophen < 10 mcg/mL (10-20); BUN/Creatinine Ratio 11 (6-26); Blood Urea Nitrogen 10 mg/dL (6-20); Calcium 9.4 mg/dL (8.6-10.3); Carbon Dioxide 19 mEq/L (23-29); Chloride 101 mEq/L (98-107); Ethanol 81 mg/dL (Less than 10); Glucose 381 mg/dL (70-105); Osmolality,Calculated 299 (280-300); Salicylate < 2.5 mg/dL (15.0-30.0); Sodium 137 mEq/L (136-145); eGFR For African Americans > 60 (> 60); eGFR For Non-African Americans > 60 (> 60)
[2021-12-28] MEDS ORDERED: 0.9 % Sodium Chloride 1,000 ML IV ONE (14:42)
[2021-12-28] MEDS ORDERED: Isovue-370 500 ML BOTTLE IVP ONE (17:03)
[2021-12-28] MEDS ORDERED: *HR* LORazepam 1 MG TABLET PO ONE (20:34)
[2021-12-28 21:14] LABS: Influenza A PCR Negative (Negative); Influenza B PCR Negative (Negative); Resp. Syncytial Virus PCR Negative (Negative)
[2021-12-28 21:15] LABS: SARS-CoV-2 by PCR (In House) Negative (Negative)
[2021-12-28 21:30] LABS: Alanine Aminotransferase 39 Units/L (7-52); Albumin 4.4 g/dL (3.5-5.7); Albumin/Globulin Ratio 1.6 (1.1-2.2); Alkaline Phosphatase 67 Units/L (34-104); Aspartate Amino Transferase 48 Units/L (13-39); BUN/Creatinine Ratio 14 (6-26); Bilirubin,Direct 0.2 mg/dL (0.0-0.2); Bilirubin,Indirect 0.7 mg/dL (0.0-1.0); Bilirubin,Total 0.9 mg/dL (0.3-1.0); Blood Urea Nitrogen 10 mg/dL (6-20); Calcium 8.7 mg/dL (8.6-10.3); Carbon Dioxide 25 mEq/L (23-29); Chloride 103 mEq/L (98-107); Globulin 2.7 g/dL (2.4-3.5); Glucose 137 mg/dL (70-105); Osmolality,Calculated 287 (280-300); Potassium 3.1 mEq/L (3.5-5.1); Sodium 138 mEq/L (136-145); Total Protein 7.1 g/dL (6.4-8.9); eGFR For African Americans > 60 (> 60); eGFR For Non-African Americans > 60 (> 60)
[2021-12-28] MEDS ORDERED: Potassium Chloride Elixir 20 MEQ/15 ML UDC PO ONE (21:45)
[2021-12-28] MEDS ORDERED: traZODone 50 MG TABLET PO PRN (22:30)
[2021-12-28] MEDS ORDERED: Haloperidol Lactate 5 MG/ML VIAL IM PRN (22:30)
[2021-12-28] MEDS ORDERED: *HR* LORazepam 2 MG/ML VIAL IM PRN (22:30)
[2021-12-28] MEDS ORDERED: hydrOXYzine pamoate 25 MG CAPSULE PO PRN (22:30)
[2021-12-28] MEDS ORDERED: Ibuprofen 400 MG TABLET PO PRN (22:30)
[2021-12-28] MEDS ORDERED: haloperidoL 5 MG TABLET PO PRN (22:30)
[2021-12-28] MEDS ORDERED: *HR* LORazepam 1 MG TABLET PO PRN (22:30)
[2021-12-28 22:46] LABS: Estimated Average Glucose 212 mg/dl
[2021-12-28] MEDS ORDERED: *HR* Dextrose 50 % in Water (Syg) 50 ML SYRINGE IVP PRN (22:52)
[2021-12-28] MEDS ORDERED: D5% in Water 1,000 ML IVC PRN (22:52)
[2021-12-28] MEDS ORDERED: Dextrose Gel 15 GM/37.5 ML TUBE PO PRN ×2 (22:52)
[2021-12-28] MEDS ORDERED: Ketorolac 30 MG/ML VIAL IM STA (23:03)
[2021-12-29] MEDS: Insulin LISPRO 300 UNITS/3 ML VIAL SUBQ SCH ×3 (09:03→17:19)
[2021-12-29] MEDS ORDERED: Folic Acid 1 MG TABLET PO SCH (11:00)
[2021-12-29] MEDS ORDERED: Aspirin Enteric Coated 81 MG Tablet PO SCH (11:00)
[2021-12-29] MEDS ORDERED: Thiamine (B-1) 100 MG TABLET PO SCH (11:00)
[2021-12-29] MEDS ORDERED: *HR* LORazepam 2 MG/ML VIAL IVP PRN ×3 (11:36)
[2021-12-29] MEDS ORDERED: Lisinopril-HCTZ 20-12.5mg TABLET PO SCH (12:00)
[2021-12-29] MEDS ORDERED: *HR* LORazepam 1 MG TABLET PO PRN ×4 (12:58→13:15)
[2021-12-29] MEDS ORDERED: Nicotine 21 MG PATCH.TD24 TD SCH (13:15)
[2021-12-29 13:58] VITALS: O2SAT 97
[2021-12-29] MEDS: *HR* LORazepam 1 MG TABLET PO PRN ×2 (14:04→15:15)
[2021-12-29 16:15] VITALS: BP 150/91; PULSE 110; TEMP 98.3
[2021-12-29] MEDS ORDERED: *HR* Metformin 500 MG TABLET PO SCH (17:00)
[2021-12-29] MEDS ORDERED: ARIPiprazole 5 MG TABLET PO SCH (21:00)
[2021-12-30] MEDS ORDERED: amLODIPine 5 MG TABLET PO SCH (09:00)
== END 2021-12-29 17:30 | disposition other institution (70) ==
LOC: EMEROOARM 11:37 → 1ANU 22:18 → INTOOBSV 22:18 → 1ANU 12-29 00:32
PROVIDERS: ADMIT Psychiatry & Neurology Psychiatry; ATTEND Psychiatry & Neurology Psychiatry

== ENCOUNTER 2021-12-29 16:46 | Inpatient (IN) ==
[2021-12-29] MEDS ORDERED: Naloxone 0.4 MG/ML INJ IVP PRN (17:18)
[2021-12-29] MEDS ORDERED: *HR* LORazepam 2 MG/ML VIAL IVP PRN ×2 (17:33)
[2021-12-29] MEDS ORDERED: D5% in Water 1,000 ML IVC PRN (17:37)
[2021-12-29] MEDS ORDERED: *HR* Dextrose 50 % in Water (Syg) 50 ML SYRINGE IVP PRN (17:37)
[2021-12-29] MEDS ORDERED: Dextrose Gel 15 GM/37.5 ML TUBE PO PRN ×2 (17:37)
[2021-12-29] MEDS ORDERED: *HR* Metoprolol 5 MG/5 ML VIAL IVP PRN (18:01)
[2021-12-29 18:12] LABS: Basophils % 0.1 %; Eosinophils % 0.4 %; Hematocrit 44.1 % (37.5-50.1); Immature Granulocytes % 0.1 % (0-4); Lymphocytes # 2.6 K/mcL (0.6-4.6); Lymphocytes % 39.4 %; Mean Corpuscular HGB Conc 36.3 g/dL (31.6-35.5); Mean Corpuscular Hemoglobin 33.1 pg (28.0-33.3); Mean Corpuscular Volume 91.3 fL (83.0-100.0); Mean Platelet Volume 9.7 fL (9.4-12.4); Monocytes # 0.4 K/mcL (0.0-1.3); Monocytes % 6.3 %; Neutrophils # 3.6 K/mcL (1.6-8.9); Platelet Count 312 K/mcL (140-400); Red Blood Count 4.83 M/mcL (4.19-5.50); Red Cell Distribution Width 12.7 % (11.5-14.5); Segmented Neutrophils % 53.7 %; White Blood Count 6.7 K/mcL (4.3-11.1)
[2021-12-29] MEDS ORDERED: Ringers Solution, Lactated 1,000 ML IVC SCH (18:15)
[2021-12-29] MEDS: *HR* Heparin 5,000 UNIT/ML VIAL SQ SCH (18:18)
[2021-12-29 18:21] LABS: INR 1.2; Prothrombin Time 13.7 Seconds (9.4-12.1)
[2021-12-29 18:31] LABS: BUN/Creatinine Ratio 16 (6-26); Blood Urea Nitrogen 12 mg/dL (6-20); Calcium 9.6 mg/dL (8.6-10.3); Carbon Dioxide 23 mEq/L (23-29); Chloride 102 mEq/L (98-107); Glucose 214 mg/dL (70-105); Magnesium 1.6 mg/dL (1.6-2.6); Osmolality,Calculated 288 (280-300); Potassium 3.3 mEq/L (3.5-5.1); Sodium 136 mEq/L (136-145); eGFR For African Americans > 60 (> 60); eGFR For Non-African Americans > 60 (> 60)
[2021-12-29 18:36] LABS: Albumin 4.5 g/dL (3.5-5.7); Albumin/Globulin Ratio 1.6 (1.1-2.2); Bilirubin,Direct 0.2 mg/dL (0.0-0.2); Bilirubin,Total 1.2 mg/dL (0.3-1.0); Globulin 2.9 g/dL (2.4-3.5); Total Protein 7.4 g/dL (6.4-8.9)
[2021-12-29 18:38] LABS: Troponin I < 0.03 ng/mL (< 0.04)
[2021-12-29 18:48] LABS: Thyroid Stimulating Hormone 1.047 mcIU/mL (0.340-5.600)
[2021-12-29 18:50] LABS: Triiodothyronine (T3) Free 3.64 pg/mL (2.50-3.90)
[2021-12-29] MEDS: Ondansetron 4 MG/2 ML VIAL IVP PRN (19:26)
[2021-12-29] MEDS: Insulin LISPRO 300 UNITS/3 ML VIAL SUBQ SCH (19:28)
[2021-12-29] MEDS ORDERED: Potassium Phosphate 44 MEQ in 0.9 % Sodium Chloride 250 ML IVPB ONE (19:52)
[2021-12-29] MEDS: Thiamine (B-1) 250 MG in 0.9 % Sodium Chloride 50 ML IVPB SCH (19:56)
[2021-12-30] MEDS: *HR* LORazepam 2 MG/ML VIAL IVP PRN ×4 (01:48→20:16)
[2021-12-30] MEDS: *HR* Heparin 5,000 UNIT/ML VIAL SQ SCH ×2 (05:18→18:13)
[2021-12-30 07:02] LABS: BUN/Creatinine Ratio 20 (6-26); Blood Urea Nitrogen 16 mg/dL (6-20); Calcium 9.3 mg/dL (8.6-10.3); Carbon Dioxide 30 mEq/L (23-29); Chloride 99 mEq/L (98-107); Glucose 175 mg/dL (70-105); Magnesium 1.7 mg/dL (1.6-2.6); Osmolality,Calculated 285 (280-300); Phosphorous 3.7 mg/dL (2.7-4.5); Potassium 3.5 mEq/L (3.5-5.1); Sodium 135 mEq/L (136-145); eGFR For African Americans > 60 (> 60); eGFR For Non-African Americans > 60 (> 60)
[2021-12-30 07:33] LABS: Basophils % 0.2 %; Eosinophils # 0.1 K/mcL (0.0-0.6); Eosinophils % 1.6 %; Hematocrit 41.7 % (37.5-50.1); Immature Granulocytes % 0.2 % (0-4); Lymphocytes % 45.7 %; Mean Corpuscular HGB Conc 34.5 g/dL (31.6-35.5); Mean Corpuscular Hemoglobin 32.2 pg (28.0-33.3); Mean Corpuscular Volume 93.3 fL (83.0-100.0); Mean Platelet Volume 10.2 fL (9.4-12.4); Monocytes # 0.4 K/mcL (0.0-1.3); Monocytes % 7.9 %; Platelet Count 253 K/mcL (140-400); Red Blood Count 4.47 M/mcL (4.19-5.50); Segmented Neutrophils % 44.4 %; White Blood Count 4.4 K/mcL (4.3-11.1)
[2021-12-30 07:36] LABS: Hemoglobin 14.4 g/dL (12.9-16.9)
[2021-12-30] MEDS: Folic Acid 1 MG TABLET PO SCH (09:40)
[2021-12-30] MEDS: Thiamine (B-1) 250 MG in 0.9 % Sodium Chloride 50 ML IVPB SCH ×3 (09:40→21:23)
[2021-12-30] MEDS: Insulin LISPRO 300 UNITS/3 ML VIAL SUBQ SCH ×4 (09:40→20:20)
[2021-12-30] MEDS: Ondansetron 4 MG/2 ML VIAL IVP PRN (09:46)
[2021-12-30] MEDS ORDERED: Acetaminophen 325 MG TABLET PO ONE (12:15)
[2021-12-30] MEDS: Nicotine 14 MG PATCH.TD24 TD SCH (12:31)
[2021-12-31 04:32] LABS: Basophils % 0.4 %; Eosinophils # 0.1 K/mcL (0.0-0.6); Eosinophils % 1.3 %; Hematocrit 39.5 % (37.5-50.1); Hemoglobin 14.1 g/dL (12.9-16.9); Immature Granulocytes % 0.2 % (0-4); Lymphocytes % 44.1 %; Mean Corpuscular HGB Conc 35.7 g/dL (31.6-35.5); Mean Corpuscular Hemoglobin 33.3 pg (28.0-33.3); Mean Corpuscular Volume 93.4 fL (83.0-100.0); Mean Platelet Volume 10.3 fL (9.4-12.4); Monocytes # 0.4 K/mcL (0.0-1.3); Monocytes % 7.8 %; Neutrophils # 2.1 K/mcL (1.6-8.9); Platelet Count 269 K/mcL (140-400); Red Blood Count 4.23 M/mcL (4.19-5.50); Red Cell Distribution Width 12.9 % (11.5-14.5); Segmented Neutrophils % 46.2 %; White Blood Count 4.5 K/mcL (4.3-11.1)
[2021-12-31 04:34] LABS: BUN/Creatinine Ratio 12 (6-26); Blood Urea Nitrogen 10 mg/dL (6-20); Carbon Dioxide 29 mEq/L (23-29); Chloride 103 mEq/L (98-107); Glucose 124 mg/dL (70-105); Osmolality,Calculated 290 (280-300); Potassium 3.2 mEq/L (3.5-5.1); Sodium 140 mEq/L (136-145); eGFR For African Americans > 60 (> 60); eGFR For Non-African Americans > 60 (> 60)
[2021-12-31] MEDS: *HR* Heparin 5,000 UNIT/ML VIAL SQ SCH ×2 (05:25→17:04)
[2021-12-31] MEDS: Folic Acid 1 MG TABLET PO SCH (09:18)
[2021-12-31] MEDS: Insulin LISPRO 300 UNITS/3 ML VIAL SUBQ SCH ×4 (09:18→19:33)
[2021-12-31] MEDS: Nicotine 14 MG PATCH.TD24 TD SCH (09:18)
[2021-12-31] MEDS: Thiamine (B-1) 250 MG in 0.9 % Sodium Chloride 50 ML IVPB SCH ×3 (09:19→19:32)
[2021-12-31] MEDS: *HR* LORazepam 2 MG/ML VIAL IVP PRN ×2 (12:11→23:34)
[2022-01-01 04:44] LABS: Basophils % 0.4 %; Eosinophils # 0.1 K/mcL (0.0-0.6); Eosinophils % 1.8 %; Hematocrit 40.2 % (37.5-50.1); Hemoglobin 13.9 g/dL (12.9-16.9); Immature Granulocytes % 0.2 % (0-4); Lymphocytes # 2.4 K/mcL (0.6-4.6); Lymphocytes % 46.5 %; Mean Corpuscular HGB Conc 34.6 g/dL (31.6-35.5); Mean Corpuscular Hemoglobin 32.1 pg (28.0-33.3); Mean Corpuscular Volume 92.8 fL (83.0-100.0); Monocytes # 0.4 K/mcL (0.0-1.3); Monocytes % 7.6 %; Neutrophils # 2.2 K/mcL (1.6-8.9); Platelet Count 238 K/mcL (140-400); Red Blood Count 4.33 M/mcL (4.19-5.50); Red Cell Distribution Width 12.8 % (11.5-14.5); Segmented Neutrophils % 43.5 %; White Blood Count 5.1 K/mcL (4.3-11.1)
[2022-01-01 05:09] LABS: BUN/Creatinine Ratio 11 (6-26); Blood Urea Nitrogen 11 mg/dL (6-20); Calcium 9.1 mg/dL (8.6-10.3); Carbon Dioxide 29 mEq/L (23-29); Chloride 102 mEq/L (98-107); Glucose 224 mg/dL (70-105); Osmolality,Calculated 292 (280-300); Potassium 3.4 mEq/L (3.5-5.1); Sodium 138 mEq/L (136-145); eGFR For African Americans > 60 (> 60); eGFR For Non-African Americans > 60 (> 60)
[2022-01-01] MEDS: *HR* Heparin 5,000 UNIT/ML VIAL SQ SCH ×2 (06:07→16:18)
[2022-01-01] MEDS: Nicotine 14 MG PATCH.TD24 TD SCH (07:55)
[2022-01-01] MEDS: Folic Acid 1 MG TABLET PO SCH (07:55)
[2022-01-01] MEDS: Insulin LISPRO 300 UNITS/3 ML VIAL SUBQ SCH ×4 (07:56→21:12)
[2022-01-01] MEDS: Thiamine (B-1) 250 MG in 0.9 % Sodium Chloride 50 ML IVPB SCH ×3 (10:12→21:13)
[2022-01-01] MEDS: amLODIPine 5 MG TABLET PO SCH (10:12)
[2022-01-01] MEDS: Gabapentin 300 MG CAPSULE PO SCH ×3 (10:12→21:13)
[2022-01-01] MEDS: *HR* LORazepam 2 MG/ML VIAL IVP PRN (10:16)
[2022-01-01] MEDS: Hydrocortisone Rectal 2.5% CRM 28 GM TUBE RC PRN ×2 (13:04→21:34)
[2022-01-01] MEDS ORDERED: Ketorolac 30 MG/ML VIAL IVP ONE (16:33)
[2022-01-01] MEDS: Ondansetron 4 MG/2 ML VIAL IVP PRN (21:21)
[2022-01-02] MEDS: *HR* LORazepam 2 MG/ML VIAL IVP PRN ×2 (04:08→21:25)
[2022-01-02] MEDS: *HR* Heparin 5,000 UNIT/ML VIAL SQ SCH ×2 (04:08→16:42)
[2022-01-02 07:14] LABS: BUN/Creatinine Ratio 9 (6-26); Blood Urea Nitrogen 9 mg/dL (6-20); Calcium 9.7 mg/dL (8.6-10.3); Carbon Dioxide 26 mEq/L (23-29); Chloride 102 mEq/L (98-107); Glucose 236 mg/dL (70-105); Osmolality,Calculated 296 (280-300); Phosphorous 3.4 mg/dL (2.7-4.5); Potassium 3.8 mEq/L (3.5-5.1); Sodium 140 mEq/L (136-145); eGFR For African Americans > 60 (> 60); eGFR For Non-African Americans > 60 (> 60)
[2022-01-02] MEDS: Thiamine (B-1) 250 MG in 0.9 % Sodium Chloride 50 ML IVPB SCH ×3 (08:32→20:47)
[2022-01-02] MEDS: Folic Acid 1 MG TABLET PO SCH (08:32)
[2022-01-02] MEDS: Nicotine 14 MG PATCH.TD24 TD SCH (08:32)
[2022-01-02] MEDS: Gabapentin 300 MG CAPSULE PO SCH ×3 (08:32→20:46)
[2022-01-02] MEDS: Insulin LISPRO 300 UNITS/3 ML VIAL SUBQ SCH ×4 (08:33→20:48)
[2022-01-02] MEDS: amLODIPine 5 MG TABLET PO SCH (08:33)
[2022-01-02] MEDS: Hydrocortisone Rectal 2.5% CRM 28 GM TUBE RC PRN (10:37)
[2022-01-02] MEDS ORDERED: Ibuprofen 400 MG TABLET PO ONE (18:02)
[2022-01-03] MEDS: *HR* LORazepam 2 MG/ML VIAL IVP PRN (03:27)
[2022-01-03] MEDS: *HR* Heparin 5,000 UNIT/ML VIAL SQ SCH ×2 (06:25→17:06)
[2022-01-03] MEDS: Gabapentin 300 MG CAPSULE PO SCH ×3 (07:43→20:29)
[2022-01-03] MEDS: amLODIPine 5 MG TABLET PO SCH (07:43)
[2022-01-03] MEDS: Nicotine 14 MG PATCH.TD24 TD SCH (07:44)
[2022-01-03] MEDS: Insulin LISPRO 300 UNITS/3 ML VIAL SUBQ SCH ×4 (07:44→20:29)
[2022-01-03] MEDS: Folic Acid 1 MG TABLET PO SCH (07:44)
[2022-01-03] MEDS ORDERED: *HR* LORazepam 1 MG TABLET PO PRN ×2 (08:00)
[2022-01-03] MEDS: Thiamine (B-1) 250 MG in 0.9 % Sodium Chloride 50 ML IVPB SCH ×3 (09:29→20:45)
[2022-01-03] MEDS: *HR* LORazepam 1 MG TABLET PO PRN ×2 (11:04→17:52)
[2022-01-03] MEDS ORDERED: Ibuprofen 600 MG TABLET PO ONE (20:35)
[2022-01-04] MEDS: *HR* LORazepam 1 MG TABLET PO PRN ×2 (04:14→09:22)
[2022-01-04] MEDS: *HR* Heparin 5,000 UNIT/ML VIAL SQ SCH (04:14)
[2022-01-04 07:20] VITALS: BP 128/76; PULSE 78; TEMP 97.7; O2SAT 97
[2022-01-04] MEDS: Gabapentin 300 MG CAPSULE PO SCH ×2 (09:13→13:05)
[2022-01-04] MEDS: amLODIPine 5 MG TABLET PO SCH (09:13)
[2022-01-04] MEDS: Folic Acid 1 MG TABLET PO SCH (09:13)
[2022-01-04] MEDS: Nicotine 14 MG PATCH.TD24 TD SCH (09:13)
[2022-01-04] MEDS: Insulin LISPRO 300 UNITS/3 ML VIAL SUBQ SCH ×2 (09:13→12:43)
[2022-01-04] MEDS: Thiamine (B-1) 250 MG in 0.9 % Sodium Chloride 50 ML IVPB SCH (09:47)
[2022-01-04] MEDS ORDERED: Acetaminophen 325 MG TABLET PO ONE (12:43)
== END 2022-01-04 13:26 | DRG 897 ==
LOC: 3BNU → SUATTDRO 17:49
PROVIDERS: ADMIT Student in an Organized Health Care Education/Training Program; ATTEND Internal Medicine

== ENCOUNTER 2022-01-04 13:18 | Inpatient (IN) ==
[2022-01-04] MEDS ORDERED: haloperidoL 5 MG TABLET PO PRN (13:41)
[2022-01-04] MEDS ORDERED: MOM Conc 10 ML UD.LIQ PO PRN (13:41)
[2022-01-04] MEDS ORDERED: Haloperidol Lactate 5 MG/ML VIAL IM PRN (13:41)
[2022-01-04] MEDS: Ibuprofen 400 MG TABLET PO PRN (15:33)
[2022-01-04] MEDS: *HR* LORazepam 1 MG TABLET PO SCH ×2 (15:33→20:23)
[2022-01-04] MEDS: Gabapentin 300 MG CAPSULE PO SCH ×2 (15:34→20:22)
[2022-01-04] MEDS: Insulin LISPRO 300 UNITS/3 ML VIAL SUBQ SCH ×2 (16:55→20:23)
[2022-01-04] MEDS: hydrOXYzine pamoate 25 MG CAPSULE PO PRN (20:22)
[2022-01-04] MEDS: QUEtiapine Fumarate 25 MG TABLET PO PRN (20:22)
[2022-01-05] MEDS: *HR* LORazepam 1 MG TABLET PO SCH ×3 (08:45→21:46)
[2022-01-05] MEDS: Thiamine (B-1) 100 MG TABLET PO SCH (08:45)
[2022-01-05] MEDS: Folic Acid 1 MG TABLET PO SCH (08:45)
[2022-01-05] MEDS: amLODIPine 5 MG TABLET PO SCH (08:45)
[2022-01-05] MEDS: Gabapentin 300 MG CAPSULE PO SCH ×3 (08:45→21:45)
[2022-01-05] MEDS: Nicotine 14 MG PATCH.TD24 TD SCH (08:47)
[2022-01-05] MEDS: Insulin LISPRO 300 UNITS/3 ML VIAL SUBQ SCH ×4 (08:49→22:01)
[2022-01-05] MEDS: ARIPiprazole 5 MG TABLET PO SCH (12:38)
[2022-01-05] MEDS: Ibuprofen 400 MG TABLET PO PRN (14:49)
[2022-01-05] MEDS: hydrOXYzine pamoate 25 MG CAPSULE PO PRN (17:38)
[2022-01-05] MEDS ORDERED: ARIPiprazole 5 MG TABLET PO SCH (21:00)
[2022-01-06] MEDS: Insulin LISPRO 300 UNITS/3 ML VIAL SUBQ SCH ×4 (08:30→20:14)
[2022-01-06] MEDS: Nicotine 14 MG PATCH.TD24 TD SCH (09:23)
[2022-01-06] MEDS: Folic Acid 1 MG TABLET PO SCH (09:23)
[2022-01-06] MEDS: Gabapentin 300 MG CAPSULE PO SCH ×3 (09:23→20:13)
[2022-01-06] MEDS: ARIPiprazole 5 MG TABLET PO SCH (09:23)
[2022-01-06] MEDS: Thiamine (B-1) 100 MG TABLET PO SCH (09:23)
[2022-01-06] MEDS: *HR* LORazepam 1 MG TABLET PO SCH ×2 (09:23→20:14)
[2022-01-06] MEDS: amLODIPine 5 MG TABLET PO SCH (09:24)
[2022-01-06] MEDS: Ibuprofen 400 MG TABLET PO PRN ×2 (11:46→20:14)
[2022-01-06] MEDS: hydrOXYzine pamoate 25 MG CAPSULE PO PRN (20:14)
[2022-01-06] MEDS: QUEtiapine Fumarate 25 MG TABLET PO PRN (20:14)
[2022-01-07] MEDS: QUEtiapine Fumarate 25 MG TABLET PO PRN (01:23)
[2022-01-07] MEDS: hydrOXYzine pamoate 25 MG CAPSULE PO PRN (01:25)
[2022-01-07] MEDS: Insulin LISPRO 300 UNITS/3 ML VIAL SUBQ SCH ×4 (09:23→20:20)
[2022-01-07] MEDS: Folic Acid 1 MG TABLET PO SCH (09:40)
[2022-01-07] MEDS: *HR* LORazepam 1 MG TABLET PO SCH ×2 (09:40→20:19)
[2022-01-07] MEDS: Thiamine (B-1) 100 MG TABLET PO SCH (09:40)
[2022-01-07] MEDS: ARIPiprazole 10 MG TABLET PO SCH (09:40)
[2022-01-07] MEDS: amLODIPine 5 MG TABLET PO SCH (09:40)
[2022-01-07] MEDS: Gabapentin 300 MG CAPSULE PO SCH (09:42)
[2022-01-07] MEDS: Nicotine 14 MG PATCH.TD24 TD SCH (09:42)
[2022-01-07] MEDS: Ibuprofen 400 MG TABLET PO PRN ×2 (13:07→19:53)
[2022-01-07] MEDS: Pregabalin 50 MG CAPSULE PO SCH ×2 (15:26→20:20)
[2022-01-07] MEDS ORDERED: Ibuprofen 600 MG TABLET PO PRN (21:38)
[2022-01-08] MEDS: Insulin LISPRO 300 UNITS/3 ML VIAL SUBQ SCH ×4 (08:11→21:08)
[2022-01-08] MEDS: Nicotine 14 MG PATCH.TD24 TD SCH (08:12)
[2022-01-08] MEDS: Thiamine (B-1) 100 MG TABLET PO SCH (08:13)
[2022-01-08] MEDS: *HR* LORazepam 1 MG TABLET PO SCH ×2 (08:13→21:07)
[2022-01-08] MEDS: ARIPiprazole 10 MG TABLET PO SCH (08:13)
[2022-01-08] MEDS: Folic Acid 1 MG TABLET PO SCH (08:14)
[2022-01-08] MEDS: Pregabalin 50 MG CAPSULE PO SCH ×3 (08:14→21:07)
[2022-01-08] MEDS: amLODIPine 5 MG TABLET PO SCH (08:14)
[2022-01-08] MEDS: Ibuprofen 400 MG TABLET PO PRN ×3 (12:22→21:08)
[2022-01-08] MEDS: hydrOXYzine pamoate 25 MG CAPSULE PO PRN (17:22)
[2022-01-08] MEDS: QUEtiapine Fumarate 25 MG TABLET PO PRN (21:07)
[2022-01-09] MEDS: Ibuprofen 400 MG TABLET PO PRN ×3 (03:58→16:11)
[2022-01-09] MEDS: Insulin LISPRO 300 UNITS/3 ML VIAL SUBQ SCH ×4 (08:25→20:57)
[2022-01-09] MEDS: *HR* LORazepam 0.5 MG TABLET PO SCH (09:01)
[2022-01-09] MEDS: Folic Acid 1 MG TABLET PO SCH (09:01)
[2022-01-09] MEDS: amLODIPine 5 MG TABLET PO SCH (09:01)
[2022-01-09] MEDS: Thiamine (B-1) 100 MG TABLET PO SCH (09:01)
[2022-01-09] MEDS: ARIPiprazole 10 MG TABLET PO SCH (09:01)
[2022-01-09] MEDS: Nicotine 14 MG PATCH.TD24 TD SCH (09:02)
[2022-01-09] MEDS: Pregabalin 50 MG CAPSULE PO SCH ×3 (09:02→20:58)
[2022-01-09] MEDS: Nicotine 21 MG PATCH.TD24 TD SCH (09:58)
[2022-01-09] MEDS: *HR* LORazepam 1 MG TABLET PO SCH (20:58)
[2022-01-09] MEDS: QUEtiapine Fumarate 25 MG TABLET PO PRN (21:03)
[2022-01-10] MEDS: Ibuprofen 400 MG TABLET PO PRN (07:10)
[2022-01-10] MEDS: Insulin LISPRO 300 UNITS/3 ML VIAL SUBQ SCH ×4 (08:06→20:53)
[2022-01-10] MEDS: Nicotine 21 MG PATCH.TD24 TD SCH (08:08)
[2022-01-10] MEDS: amLODIPine 5 MG TABLET PO SCH (08:09)
[2022-01-10] MEDS: Folic Acid 1 MG TABLET PO SCH (08:09)
[2022-01-10] MEDS: Pregabalin 50 MG CAPSULE PO SCH (08:09)
[2022-01-10] MEDS: ARIPiprazole 10 MG TABLET PO SCH (08:09)
[2022-01-10] MEDS: *HR* LORazepam 0.5 MG TABLET PO SCH ×2 (08:09→20:54)
[2022-01-10] MEDS: Thiamine (B-1) 100 MG TABLET PO SCH (08:09)
[2022-01-10] MEDS ORDERED: Pregabalin 25 MG CAPSULE PO ONE (10:00)
[2022-01-10] MEDS ORDERED: *HR* HYDROcodone/Acet 5/325 mg TABLET PO PRN (12:35)
[2022-01-10] MEDS: Acetaminophen 325 MG TABLET PO PRN ×2 (14:50→23:52)
[2022-01-10] MEDS: Pregabalin 75 MG CAPSULE PO SCH ×2 (16:04→20:54)
[2022-01-10] MEDS: Ibuprofen 600 MG TABLET PO PRN (17:24)
[2022-01-10] MEDS: QUEtiapine Fumarate 25 MG TABLET PO PRN (20:54)
[2022-01-10] MEDS: hydrOXYzine pamoate 25 MG CAPSULE PO PRN (23:52)
[2022-01-11] MEDS: Ibuprofen 600 MG TABLET PO PRN ×2 (03:32→14:43)
[2022-01-11] MEDS: Nicotine 21 MG PATCH.TD24 TD SCH (08:22)
[2022-01-11] MEDS: Pregabalin 75 MG CAPSULE PO SCH ×3 (08:23→20:43)
[2022-01-11] MEDS: *HR* LORazepam 0.5 MG TABLET PO SCH ×2 (08:23→20:43)
[2022-01-11] MEDS: ARIPiprazole 10 MG TABLET PO SCH (08:24)
[2022-01-11] MEDS: Folic Acid 1 MG TABLET PO SCH (08:24)
[2022-01-11] MEDS: amLODIPine 5 MG TABLET PO SCH (08:24)
[2022-01-11] MEDS: Thiamine (B-1) 100 MG TABLET PO SCH (08:24)
[2022-01-11] MEDS: Insulin LISPRO 300 UNITS/3 ML VIAL SUBQ SCH ×4 (09:15→20:47)
[2022-01-11] MEDS: hydrOXYzine pamoate 25 MG CAPSULE PO PRN (17:18)
[2022-01-11] MEDS: Acetaminophen 325 MG TABLET PO PRN (17:19)
[2022-01-11] MEDS: QUEtiapine Fumarate 25 MG TABLET PO PRN (20:46)
[2022-01-12] MEDS: Ibuprofen 600 MG TABLET PO PRN ×2 (02:39→12:39)
[2022-01-12] MEDS: Insulin LISPRO 300 UNITS/3 ML VIAL SUBQ SCH ×4 (08:22→21:03)
[2022-01-12] MEDS: amLODIPine 5 MG TABLET PO SCH (08:22)
[2022-01-12] MEDS: ARIPiprazole 10 MG TABLET PO SCH (08:22)
[2022-01-12] MEDS: Pregabalin 75 MG CAPSULE PO SCH ×3 (08:22→21:02)
[2022-01-12] MEDS: Folic Acid 1 MG TABLET PO SCH (08:22)
[2022-01-12] MEDS: Thiamine (B-1) 100 MG TABLET PO SCH (08:22)
[2022-01-12] MEDS: Nicotine 21 MG PATCH.TD24 TD SCH (08:23)
[2022-01-12] MEDS: hydrOXYzine pamoate 25 MG CAPSULE PO PRN ×3 (11:18→22:31)
[2022-01-12] MEDS: *HR* LORazepam 0.5 MG TABLET PO SCH (21:01)
[2022-01-12] MEDS: QUEtiapine Fumarate 25 MG TABLET PO PRN (21:02)
[2022-01-12] MEDS: Mag Hydrox/Al Hydrox/Simeth 30 ML UDC PO PRN (21:11)
[2022-01-13] MEDS: Insulin LISPRO 300 UNITS/3 ML VIAL SUBQ SCH ×4 (07:43→21:06)
[2022-01-13] MEDS: Nicotine 21 MG PATCH.TD24 TD SCH (08:52)
[2022-01-13] MEDS: Thiamine (B-1) 100 MG TABLET PO SCH (08:53)
[2022-01-13] MEDS: Folic Acid 1 MG TABLET PO SCH (08:53)
[2022-01-13] MEDS: ARIPiprazole 10 MG TABLET PO SCH (08:53)
[2022-01-13] MEDS: Pregabalin 75 MG CAPSULE PO SCH ×3 (08:54→21:05)
[2022-01-13] MEDS: amLODIPine 5 MG TABLET PO SCH (08:54)
[2022-01-13] MEDS: Ibuprofen 600 MG TABLET PO PRN ×2 (10:08→21:05)
[2022-01-13] MEDS: hydrOXYzine pamoate 25 MG CAPSULE PO PRN ×2 (10:08→21:05)
[2022-01-13] MEDS: Simethicone 80 MG TAB.CHEW PO PRN (16:33)
[2022-01-13] MEDS: *HR* LORazepam 0.5 MG TABLET PO SCH (21:05)
[2022-01-13] MEDS: QUEtiapine Fumarate 25 MG TABLET PO PRN (23:06)
[2022-01-14] MEDS: Ibuprofen 600 MG TABLET PO PRN (02:12)
[2022-01-14] MEDS: amLODIPine 5 MG TABLET PO SCH (07:31)
[2022-01-14] MEDS: Folic Acid 1 MG TABLET PO SCH (07:31)
[2022-01-14] MEDS: Thiamine (B-1) 100 MG TABLET PO SCH (07:31)
[2022-01-14] MEDS: Pregabalin 75 MG CAPSULE PO SCH ×3 (07:31→20:10)
[2022-01-14] MEDS: ARIPiprazole 10 MG TABLET PO SCH (07:31)
[2022-01-14] MEDS: Nicotine 21 MG PATCH.TD24 TD SCH (07:32)
[2022-01-14] MEDS: Insulin LISPRO 300 UNITS/3 ML VIAL SUBQ SCH ×4 (07:53→20:14)
[2022-01-14] MEDS: Simethicone 80 MG TAB.CHEW PO PRN ×2 (09:02→20:10)
[2022-01-14] MEDS: hydrOXYzine pamoate 25 MG CAPSULE PO PRN (11:04)
[2022-01-14] MEDS: *HR* LORazepam 0.5 MG TABLET PO SCH (20:09)
[2022-01-14] MEDS: Mag Hydrox/Al Hydrox/Simeth 30 ML UDC PO PRN (20:09)
[2022-01-14] MEDS: QUEtiapine Fumarate 25 MG TABLET PO PRN (20:10)
[2022-01-15] MEDS: Insulin LISPRO 300 UNITS/3 ML VIAL SUBQ SCH ×4 (08:11→20:33)
[2022-01-15] MEDS: Thiamine (B-1) 100 MG TABLET PO SCH (08:55)
[2022-01-15] MEDS: Nicotine 21 MG PATCH.TD24 TD SCH (08:55)
[2022-01-15] MEDS: amLODIPine 5 MG TABLET PO SCH (08:55)
[2022-01-15] MEDS: ARIPiprazole 10 MG TABLET PO SCH (08:55)
[2022-01-15] MEDS: Folic Acid 1 MG TABLET PO SCH (08:56)
[2022-01-15] MEDS: Pregabalin 75 MG CAPSULE PO SCH ×3 (08:56→20:32)
[2022-01-15] MEDS: Ibuprofen 600 MG TABLET PO PRN ×2 (13:01→20:38)
[2022-01-15] MEDS: QUEtiapine Fumarate 25 MG TABLET PO PRN (22:29)
[2022-01-15] MEDS: hydrOXYzine pamoate 25 MG CAPSULE PO PRN (22:29)
[2022-01-16] MEDS: Insulin LISPRO 300 UNITS/3 ML VIAL SUBQ SCH ×4 (08:12→20:49)
[2022-01-16] MEDS ORDERED: traZODone 50 MG TABLET PO PRN (08:37)
[2022-01-16] MEDS: Nicotine 21 MG PATCH.TD24 TD SCH (09:09)
[2022-01-16] MEDS: amLODIPine 5 MG TABLET PO SCH (09:11)
[2022-01-16] MEDS: Thiamine (B-1) 100 MG TABLET PO SCH (09:11)
[2022-01-16] MEDS: ARIPiprazole 10 MG TABLET PO SCH (09:11)
[2022-01-16] MEDS: Folic Acid 1 MG TABLET PO SCH (09:11)
[2022-01-16] MEDS: Pregabalin 75 MG CAPSULE PO SCH ×3 (09:12→20:52)
[2022-01-16] MEDS: hydrOXYzine pamoate 25 MG CAPSULE PO PRN ×2 (09:14→20:52)
[2022-01-16] MEDS: Ibuprofen 600 MG TABLET PO PRN (11:24)
[2022-01-16] MEDS: Simethicone 80 MG TAB.CHEW PO PRN (20:51)
[2022-01-16] MEDS: Melatonin 3 MG TABLET PO SCH (20:51)
[2022-01-17] MEDS: ARIPiprazole 10 MG TABLET PO SCH (09:00)
[2022-01-17] MEDS: Folic Acid 1 MG TABLET PO SCH (09:00)
[2022-01-17] MEDS: amLODIPine 5 MG TABLET PO SCH (09:00)
[2022-01-17] MEDS: Pregabalin 75 MG CAPSULE PO SCH ×3 (09:00→20:46)
[2022-01-17] MEDS: Thiamine (B-1) 100 MG TABLET PO SCH (09:01)
[2022-01-17] MEDS: Nicotine 21 MG PATCH.TD24 TD SCH (09:01)
[2022-01-17] MEDS: Insulin LISPRO 300 UNITS/3 ML VIAL SUBQ SCH ×4 (09:01→20:46)
[2022-01-17] MEDS: Ibuprofen 600 MG TABLET PO PRN ×2 (11:54→16:15)
[2022-01-17] MEDS: hydrOXYzine pamoate 25 MG CAPSULE PO PRN (16:15)
[2022-01-17] MEDS: Melatonin 3 MG TABLET PO SCH (20:46)
[2022-01-17] MEDS: Simethicone 80 MG TAB.CHEW PO PRN (20:46)
[2022-01-18] MEDS: Insulin LISPRO 300 UNITS/3 ML VIAL SUBQ SCH ×2 (08:15→12:24)
[2022-01-18] MEDS: Pregabalin 75 MG CAPSULE PO SCH (08:22)
[2022-01-18] MEDS: Folic Acid 1 MG TABLET PO SCH (08:22)
[2022-01-18] MEDS: Nicotine 21 MG PATCH.TD24 TD SCH (08:22)
[2022-01-18] MEDS: Thiamine (B-1) 100 MG TABLET PO SCH (08:22)
[2022-01-18] MEDS: amLODIPine 5 MG TABLET PO SCH (08:22)
[2022-01-18] MEDS: ARIPiprazole 10 MG TABLET PO SCH (08:23)
[2022-01-18 09:31] VITALS: BP 134/84; PULSE 80; TEMP 97.5; O2SAT 97
[2022-01-18] MEDS: Ibuprofen 600 MG TABLET PO PRN (11:41)
== END 2022-01-18 13:10 | disposition home or self-care (01) ==
LOC: 1ANU 13:18
PROVIDERS: ADMIT Psychiatry & Neurology Psychiatry; ATTEND Psychiatry & Neurology Psychiatry

== ENCOUNTER 2022-08-26 21:04 | Inpatient (IN) ==
[2022-08-27] MEDS ORDERED: 0.9 % Sodium Chloride 1,000 ML IVC ONE (02:30)
[2022-08-27] MEDS ORDERED: *HR* LORazepam 1 MG TABLET PO ONE (07:52)
[2022-08-27] MEDS ORDERED: Mag Hydrox/Al Hydrox/Simeth 30 ML UDC PO PRN (10:35)
[2022-08-27] MEDS ORDERED: MOM Conc 10 ML UD.LIQ PO PRN (10:35)
[2022-08-27] MEDS ORDERED: Ondansetron 4 MG/2 ML VIAL IVP PRN (10:35)
[2022-08-27] MEDS ORDERED: Naloxone 0.4 MG/ML INJ IVP PRN (10:35)
[2022-08-27] MEDS ORDERED: *HR* LORazepam 1 MG TABLET PO PRN ×2 (10:35)
[2022-08-27] MEDS: *HR* LORazepam 1 MG TABLET PO PRN ×3 (11:12→20:50)
[2022-08-27] MEDS ORDERED: D5% in Water 1,000 ML IVC PRN (11:55)
[2022-08-27] MEDS ORDERED: Dextrose Gel 15 GM/37.5 ML TUBE PO PRN ×2 (11:55)
[2022-08-27] MEDS ORDERED: *HR* Dextrose 50 % in Water (Syg) 50 ML SYRINGE IVP PRN (11:55)
[2022-08-27 14:50] LABS: Adenovirus Not Detected (Not Detect); Bordetella Pertussis Not Detected (Not Detect); Chlamydophila pneumoniae Not Detected (Not Detect); Coronavirus 229E Not Detected (Not Detect); Coronavirus HKU1 Not Detected (Not Detect); Coronavirus NL63 Not Detected (Not Detect); Coronavirus OC43 Not Detected (Not Detect); Human Metapneumovirus Not Detected (Not Detect); Human Rhinovirus/Enterovirus Not Detected (Not Detect); Influenza A Subtype 2009 H1 Not Detected (Not Detect); Influenza B Not Detected (Not Detect); Mycoplasma pneumoniae Not Detected (Not Detect); Parainfluenza Virus 1 Not Detected (Not Detect); Parainfluenza Virus 2 Not Detected (Not Detect); Parainfluenza Virus 3 Not Detected (Not Detect); Parainfluenza Virus 4 Not Detected (Not Detect); Respiratory Syncytial Virus Not Detected (Not Detect); SARS-CoV-2 Not Detected (Not Detect)
[2022-08-27] MEDS: Insulin LISPRO 300 UNITS/3 ML VIAL SUBQ SCH ×2 (16:44→20:12)
[2022-08-27] MEDS ORDERED: Pregabalin 75 MG CAPSULE PO ONE (19:32)
[2022-08-28] MEDS: *HR* LORazepam 1 MG TABLET PO PRN ×3 (02:28→21:00)
[2022-08-28] MEDS ORDERED: Melatonin 3 MG TABLET PO ONE (03:59)
[2022-08-28] MEDS: *HR* Enoxaparin 40 MG/0.4 ML SYRINGE SQ SCH (05:31)
[2022-08-28 06:34] LABS: Hematocrit 42.5 % (37.5-50.1); Hemoglobin 14.4 g/dL (12.9-16.9); Mean Corpuscular HGB Conc 33.9 g/dL (31.6-35.5); Mean Corpuscular Hemoglobin 31.2 pg (28.0-33.3); Platelet Count 227 K/mcL (140-400); Red Blood Count 4.62 M/mcL (4.19-5.50); Red Cell Distribution Width 12.7 % (11.5-14.5); White Blood Count 4.9 K/mcL (4.3-11.1)
[2022-08-28 06:49] LABS: Albumin 4.4 g/dL (3.5-5.7); Albumin/Globulin Ratio 1.4 (1.1-2.2); Bilirubin,Total 0.7 mg/dL (0.3-1.0); Calcium 9.6 mg/dL (8.6-10.3); Globulin 3.1 g/dL (2.4-3.5); Magnesium 1.9 mg/dL (1.6-2.6); Potassium 3.4 mEq/L (3.5-5.1); Total Protein 7.5 g/dL (6.4-8.9)
[2022-08-28] MEDS ORDERED: Potassium Chloride Elixir 20 MEQ/15 ML UDC PO ONE (08:52)
[2022-08-28] MEDS: Thiamine (B-1) 100 MG TABLET PO SCH (09:04)
[2022-08-28] MEDS: Insulin LISPRO 300 UNITS/3 ML VIAL SUBQ SCH ×4 (09:31→21:00)
[2022-08-28] MEDS ORDERED: *HR* Labetalol 20 MG/4 ML SYRINGE IVP PRN (13:21)
[2022-08-28] MEDS: amLODIPine 5 MG TABLET PO SCH (15:03)
[2022-08-28] MEDS: Metoprolol XL (24 HR) Succ 25 MG TAB.ER.24H PO SCH (15:04)
[2022-08-28] MEDS: Lisinopril-HCTZ 20-12.5mg TABLET PO SCH (15:05)
[2022-08-28] MEDS: Nicotine 21 MG PATCH.TD24 TD SCH (16:04)
[2022-08-28] MEDS ORDERED: *HR* Labetalol 20 MG/4 ML SYRINGE IVP ONE (17:08)
[2022-08-28] MEDS ORDERED: Melatonin 3 MG TABLET PO PRN (23:36)
[2022-08-28] MEDS: Nicotine 2 MG GUM BC PRN (23:55)
[2022-08-29] MEDS: *HR* Enoxaparin 40 MG/0.4 ML SYRINGE SQ SCH (05:07)
[2022-08-29] MEDS: Nicotine 2 MG GUM BC PRN ×4 (05:08→20:12)
[2022-08-29] MEDS: *HR* LORazepam 1 MG TABLET PO PRN ×3 (05:08→20:12)
[2022-08-29 08:29] LABS: Albumin 4.6 g/dL (3.5-5.7); Albumin/Globulin Ratio 1.4 (1.1-2.2); Basophils % 0.2 %; Bilirubin,Total 1.1 mg/dL (0.3-1.0); Calcium 10.1 mg/dL (8.6-10.3); Eosinophils # 0.1 K/mcL (0.0-0.6); Eosinophils % 1.1 %; Globulin 3.2 g/dL (2.4-3.5); Hemoglobin 15.1 g/dL (12.9-16.9); Immature Granulocytes % 0.2 % (0-4); Lymphocytes # 1.6 K/mcL (0.6-4.6); Lymphocytes % 33.4 %; Magnesium 1.6 mg/dL (1.6-2.6); Mean Corpuscular HGB Conc 34.3 g/dL (31.6-35.5); Mean Corpuscular Hemoglobin 31.2 pg (28.0-33.3); Mean Corpuscular Volume 90.9 fL (83.0-100.0); Monocytes # 0.3 K/mcL (0.0-1.3); Monocytes % 7.2 %; Neutrophils # 2.7 K/mcL (1.6-8.9); Phosphorous 4.2 mg/dL (2.7-4.5); Platelet Count 249 K/mcL (140-400); Potassium 3.8 mEq/L (3.5-5.1); Red Blood Count 4.84 M/mcL (4.19-5.50); Red Cell Distribution Width 12.5 % (11.5-14.5); Segmented Neutrophils % 57.9 %; Total Protein 7.8 g/dL (6.4-8.9); White Blood Count 4.7 K/mcL (4.3-11.1)
[2022-08-29] MEDS: amLODIPine 5 MG TABLET PO SCH (08:42)
[2022-08-29] MEDS: Lisinopril-HCTZ 20-12.5mg TABLET PO SCH (08:44)
[2022-08-29] MEDS: Thiamine (B-1) 100 MG TABLET PO SCH (08:44)
[2022-08-29] MEDS: Metoprolol XL (24 HR) Succ 25 MG TAB.ER.24H PO SCH (08:45)
[2022-08-29] MEDS: Nicotine 21 MG PATCH.TD24 TD SCH (08:45)
[2022-08-29] MEDS ORDERED: Folic Acid 1 MG TABLET PO SCH (09:00)
[2022-08-29] MEDS ORDERED: NON-FORMULARY MEDICATION 1 EACH EACH (Pregabalin [Lyrica] 150 MG Capsule) PO SCH (09:00)
[2022-08-29] MEDS: Insulin LISPRO 300 UNITS/3 ML VIAL SUBQ SCH ×4 (09:10→20:13)
[2022-08-29] MEDS: Pregabalin 75 MG CAPSULE PO SCH ×2 (09:38→20:12)
[2022-08-29] MEDS ORDERED: NON-FORMULARY MEDICATION 1 EACH EACH (Insulin Glargine,Hum.Rec.Anlog [Lantus Solostar] 100 SQ SCH (21:00)
[2022-08-29] MEDS ORDERED: Insulin DETEMIR 100 UNIT/ML X5UNITS SUBQ SCH (21:00)
[2022-08-29 22:49] LABS: Influenza A PCR Negative (Negative); Influenza B PCR Negative (Negative); Resp. Syncytial Virus PCR Negative (Negative); SARS-CoV-2 by PCR (In House) Negative (Negative)
[2022-08-29 23:00] VITALS: BP 153/97; PULSE 83; TEMP 97.8; O2SAT 94
== END 2022-08-29 23:25 | DRG 897 ==
LOC: 3BNU 21:04 → EMEROOARM 21:04 → 3BNU 08-27 10:40
PROVIDERS: ADMIT Internal Medicine; ATTEND Internal Medicine

== ENCOUNTER 2022-08-29 23:27 | Inpatient (IN) ==
[2022-08-29] MEDS ORDERED: haloperidoL 5 MG TABLET PO PRN (23:33)
[2022-08-29] MEDS ORDERED: Haloperidol Lactate 5 MG/ML VIAL IM PRN (23:33)
[2022-08-29] MEDS ORDERED: *HR* LORazepam 2 MG/ML VIAL IM PRN (23:33)
[2022-08-29] MEDS ORDERED: Ibuprofen 400 MG TABLET PO PRN (23:33)
[2022-08-29] MEDS ORDERED: *HR* LORazepam 1 MG TABLET PO PRN (23:33)
[2022-08-30] MEDS: traZODone 50 MG TABLET PO PRN ×2 (00:28→21:49)
[2022-08-30] MEDS: hydrOXYzine pamoate 25 MG CAPSULE PO PRN ×2 (00:44→11:14)
[2022-08-30] MEDS ORDERED: *HR* LORazepam 1 MG TABLET PO SCH (01:30)
[2022-08-30] MEDS ORDERED: *HR* LORazepam 1 MG TABLET PO PRN ×2 (01:50)
[2022-08-30] MEDS: Pregabalin 75 MG CAPSULE PO SCH ×2 (08:38→21:49)
[2022-08-30] MEDS: Thiamine (B-1) 100 MG TABLET PO SCH (08:38)
[2022-08-30] MEDS: Metoprolol XL (24 HR) Succ 25 MG TAB.ER.24H PO SCH (08:38)
[2022-08-30] MEDS: Folic Acid 1 MG TABLET PO SCH (08:38)
[2022-08-30] MEDS: amLODIPine 5 MG TABLET PO SCH (08:39)
[2022-08-30] MEDS: Insulin LISPRO 300 UNITS/3 ML VIAL SUBQ SCH ×4 (08:44→21:50)
[2022-08-30] MEDS ORDERED: Lisinopril-HCTZ 20-12.5mg TABLET PO SCH (09:00)
[2022-08-30] MEDS: Nicotine 2 MG GUM BC PRN ×4 (09:45→17:16)
[2022-08-30] MEDS: Acetaminophen 325 MG TABLET PO PRN ×2 (14:53→21:49)
[2022-08-30 15:07] LABS: Calcium 9.2 mg/dL (8.6-10.3); Potassium 3.9 mEq/L (3.5-5.1)
[2022-08-30] MEDS: Melatonin 3 MG TABLET PO SCH (21:48)
[2022-08-30] MEDS: Insulin DETEMIR 100 UNIT/ML X5UNITS SUBQ SCH (21:51)
[2022-08-31] MEDS: Acetaminophen 325 MG TABLET PO PRN ×3 (03:42→21:06)
[2022-08-31] MEDS: hydrOXYzine pamoate 25 MG CAPSULE PO PRN ×3 (03:45→21:05)
[2022-08-31] MEDS: Nicotine 2 MG GUM BC PRN ×3 (04:19→21:05)
[2022-08-31] MEDS: Naltrexone HCl 50 MG TABLET PO SCH (08:10)
[2022-08-31] MEDS: amLODIPine 5 MG TABLET PO SCH (08:10)
[2022-08-31] MEDS: lisinopriL 20 MG TABLET PO SCH (08:11)
[2022-08-31] MEDS: Folic Acid 1 MG TABLET PO SCH (08:11)
[2022-08-31] MEDS: Metoprolol XL (24 HR) Succ 25 MG TAB.ER.24H PO SCH (08:11)
[2022-08-31] MEDS: Thiamine (B-1) 100 MG TABLET PO SCH (08:11)
[2022-08-31] MEDS: Pregabalin 75 MG CAPSULE PO SCH ×2 (08:12→21:05)
[2022-08-31] MEDS: Insulin LISPRO 300 UNITS/3 ML VIAL SUBQ SCH ×4 (08:12→21:13)
[2022-08-31 14:08] LABS: Calcium 9.1 mg/dL (8.6-10.3); Potassium 4.5 mEq/L (3.5-5.1)
[2022-08-31] MEDS: *HR* LORazepam 1 MG TABLET PO PRN (17:35)
[2022-08-31] MEDS: Melatonin 3 MG TABLET PO SCH (21:04)
[2022-08-31] MEDS: traZODone 50 MG TABLET PO PRN (21:05)
[2022-08-31] MEDS: Insulin DETEMIR 100 UNIT/ML X5UNITS SUBQ SCH (21:06)
[2022-09-01] MEDS: Naltrexone HCl 50 MG TABLET PO SCH (08:26)
[2022-09-01] MEDS: Folic Acid 1 MG TABLET PO SCH (08:26)
[2022-09-01] MEDS: Metoprolol XL (24 HR) Succ 25 MG TAB.ER.24H PO SCH (08:26)
[2022-09-01] MEDS: lisinopriL 20 MG TABLET PO SCH (08:26)
[2022-09-01] MEDS: Pregabalin 75 MG CAPSULE PO SCH ×2 (08:26→20:17)
[2022-09-01] MEDS: hydrOXYzine pamoate 25 MG CAPSULE PO PRN ×3 (08:26→20:17)
[2022-09-01] MEDS: Thiamine (B-1) 100 MG TABLET PO SCH (08:27)
[2022-09-01] MEDS: amLODIPine 5 MG TABLET PO SCH (08:27)
[2022-09-01] MEDS: Acetaminophen 325 MG TABLET PO PRN ×2 (08:27→20:16)
[2022-09-01] MEDS: Insulin LISPRO 300 UNITS/3 ML VIAL SUBQ SCH ×4 (08:30→20:15)
[2022-09-01] MEDS: Nicotine 2 MG GUM BC PRN ×4 (09:05→20:18)
[2022-09-01] MEDS: traZODone 50 MG TABLET PO PRN (20:16)
[2022-09-01] MEDS: Insulin DETEMIR 100 UNIT/ML X5UNITS SUBQ SCH (20:16)
[2022-09-01] MEDS: Melatonin 3 MG TABLET PO SCH (20:17)
[2022-09-02] MEDS: Insulin LISPRO 300 UNITS/3 ML VIAL SUBQ SCH ×4 (08:57→21:59)
[2022-09-02] MEDS: Thiamine (B-1) 100 MG TABLET PO SCH (08:58)
[2022-09-02] MEDS: Pregabalin 75 MG CAPSULE PO SCH ×2 (08:58→21:23)
[2022-09-02] MEDS: Metoprolol XL (24 HR) Succ 25 MG TAB.ER.24H PO SCH (08:58)
[2022-09-02] MEDS: amLODIPine 5 MG TABLET PO SCH (08:58)
[2022-09-02] MEDS: Nicotine 2 MG GUM BC PRN ×3 (08:58→21:24)
[2022-09-02] MEDS: lisinopriL 20 MG TABLET PO SCH (08:59)
[2022-09-02] MEDS: Naltrexone HCl 50 MG TABLET PO SCH (08:59)
[2022-09-02] MEDS: Folic Acid 1 MG TABLET PO SCH (08:59)
[2022-09-02 10:41] LABS: Calcium 9.4 mg/dL (8.6-10.3); Potassium 4.5 mEq/L (3.5-5.1)
[2022-09-02] MEDS: Acetaminophen 325 MG TABLET PO PRN ×2 (11:31→21:23)
[2022-09-02] MEDS: *HR* LORazepam 1 MG TABLET PO PRN (12:32)
[2022-09-02] MEDS ORDERED: diazePAM 5 MG TABLET PO ONE ×2 (14:30→20:47)
[2022-09-02] MEDS ORDERED: traZODone 50 MG TABLET PO SCH (21:00)
[2022-09-02] MEDS: Insulin DETEMIR 100 UNIT/ML X5UNITS SUBQ SCH (21:24)
[2022-09-02] MEDS: QUEtiapine Fumarate 100 MG TABLET PO SCH (21:58)
[2022-09-03] MEDS: Nicotine 2 MG GUM BC PRN ×2 (09:15→17:13)
[2022-09-03] MEDS: Insulin LISPRO 300 UNITS/3 ML VIAL SUBQ SCH ×4 (09:17→20:43)
[2022-09-03] MEDS: Folic Acid 1 MG TABLET PO SCH (09:18)
[2022-09-03] MEDS: Naltrexone HCl 50 MG TABLET PO SCH (09:19)
[2022-09-03] MEDS: Pregabalin 75 MG CAPSULE PO SCH ×2 (09:19→20:19)
[2022-09-03] MEDS: amLODIPine 5 MG TABLET PO SCH (09:21)
[2022-09-03] MEDS: Metoprolol XL (24 HR) Succ 25 MG TAB.ER.24H PO SCH (09:22)
[2022-09-03] MEDS: Thiamine (B-1) 100 MG TABLET PO SCH (09:22)
[2022-09-03] MEDS: lisinopriL 20 MG TABLET PO SCH (09:22)
[2022-09-03] MEDS: Melatonin 3 MG TABLET PO SCH (16:25)
[2022-09-03] MEDS: hydrOXYzine pamoate 25 MG CAPSULE PO PRN (20:19)
[2022-09-03] MEDS: Insulin DETEMIR 100 UNIT/ML X5UNITS SUBQ SCH (20:20)
[2022-09-03] MEDS: QUEtiapine Fumarate 100 MG TABLET PO SCH (20:20)
[2022-09-03] MEDS ORDERED: ARIPiprazole 2 MG TABLET PO SCH (21:00)
[2022-09-04] MEDS: Insulin LISPRO 300 UNITS/3 ML VIAL SUBQ SCH ×4 (08:25→20:30)
[2022-09-04] MEDS: Pregabalin 75 MG CAPSULE PO SCH ×2 (09:07→20:36)
[2022-09-04] MEDS: lisinopriL 20 MG TABLET PO SCH (09:07)
[2022-09-04] MEDS: Folic Acid 1 MG TABLET PO SCH (09:07)
[2022-09-04] MEDS: amLODIPine 5 MG TABLET PO SCH (09:07)
[2022-09-04] MEDS: Naltrexone HCl 50 MG TABLET PO SCH (09:07)
[2022-09-04] MEDS: Thiamine (B-1) 100 MG TABLET PO SCH (09:07)
[2022-09-04] MEDS: Metoprolol XL (24 HR) Succ 25 MG TAB.ER.24H PO SCH (09:08)
[2022-09-04] MEDS: Nicotine 2 MG GUM BC PRN ×3 (09:09→17:07)
[2022-09-04] MEDS: hydrOXYzine pamoate 25 MG CAPSULE PO PRN ×2 (14:14→20:29)
[2022-09-04] MEDS: Melatonin 3 MG TABLET PO SCH (17:08)
[2022-09-04] MEDS ORDERED: Ibuprofen 600 MG TABLET PO PRN (18:30)
[2022-09-04] MEDS: ARIPiprazole 5 MG TABLET PO SCH (20:27)
[2022-09-04] MEDS: QUEtiapine Fumarate 100 MG TABLET PO SCH (20:29)
[2022-09-04] MEDS: Insulin DETEMIR 100 UNIT/ML X5UNITS SUBQ SCH (20:29)
[2022-09-05] MEDS: Nicotine 2 MG GUM BC PRN ×2 (07:24→18:15)
[2022-09-05] MEDS: Insulin LISPRO 300 UNITS/3 ML VIAL SUBQ SCH ×4 (08:12→21:01)
[2022-09-05] MEDS: Pregabalin 75 MG CAPSULE PO SCH ×2 (08:46→21:01)
[2022-09-05] MEDS: Folic Acid 1 MG TABLET PO SCH (08:46)
[2022-09-05] MEDS: Naltrexone HCl 50 MG TABLET PO SCH (08:46)
[2022-09-05] MEDS: lisinopriL 20 MG TABLET PO SCH (08:46)
[2022-09-05] MEDS: amLODIPine 5 MG TABLET PO SCH (08:46)
[2022-09-05] MEDS: Metoprolol XL (24 HR) Succ 25 MG TAB.ER.24H PO SCH (08:46)
[2022-09-05] MEDS: Thiamine (B-1) 100 MG TABLET PO SCH (08:46)
[2022-09-05] MEDS: hydrOXYzine pamoate 25 MG CAPSULE PO PRN (10:54)
[2022-09-05] MEDS: Melatonin 3 MG TABLET PO SCH (17:59)
[2022-09-05] MEDS ORDERED: Insulin DETEMIR 100 UNIT/ML X5UNITS SUBQ SCH (21:00)
[2022-09-05] MEDS: QUEtiapine Fumarate 100 MG TABLET PO SCH (21:01)
[2022-09-05] MEDS: ARIPiprazole 5 MG TABLET PO SCH (21:01)
[2022-09-06] MEDS: Insulin LISPRO 300 UNITS/3 ML VIAL SUBQ SCH ×2 (08:07→13:03)
[2022-09-06] MEDS: Pregabalin 75 MG CAPSULE PO SCH (08:09)
[2022-09-06] MEDS: Folic Acid 1 MG TABLET PO SCH (08:09)
[2022-09-06] MEDS: Naltrexone HCl 50 MG TABLET PO SCH (08:09)
[2022-09-06] MEDS: Thiamine (B-1) 100 MG TABLET PO SCH (08:09)
[2022-09-06] MEDS: Metoprolol XL (24 HR) Succ 25 MG TAB.ER.24H PO SCH (08:09)
[2022-09-06] MEDS: Nicotine 2 MG GUM BC PRN ×2 (08:10→13:58)
[2022-09-06] MEDS: amLODIPine 5 MG TABLET PO SCH (08:10)
[2022-09-06] MEDS: lisinopriL 20 MG TABLET PO SCH (08:10)
[2022-09-06 09:07] VITALS: BP 113/71; PULSE 74; TEMP 97.5; O2SAT 96
[2022-09-06] MEDS: hydrOXYzine pamoate 25 MG CAPSULE PO PRN (09:55)
[2022-09-06] MEDS ORDERED: traZODone 50 MG TABLET PO SCH (21:00)
[2022-09-06] MEDS ORDERED: Melatonin 3 MG TABLET PO SCH (21:00)
== END 2022-09-06 14:34 | disposition home or self-care (01) | DRG 885 ==
LOC: 1ANU 23:27
PROVIDERS: ADMIT Student in an Organized Health Care Education/Training Program; ATTEND Student in an Organized Health Care Education/Training Program